=== PATIENT | female | born 1970 | race Caucasian/White ===

== ENCOUNTER 2023-07-03 21:47 | Emergency (ER) | payer BC, SELFPAY ==
--- NOTE | ~2023-07-03 | CT_ITS ---
CT of the Abdomen and Pelvis: Indication: Flank pain Technique: 2.5 mm axial scans were obtained through the abdomen and pelvis following intravenous adm inistration of 100 cc of Omnipaque 350. Dose reduction technique was used on this scan by utilizing a utomated exposure control and iterative reconstruction technique. The dose-length product (DLP) was 1 218.45 mGy-cm. Findings: Scans through the lung bases are unremarkable. The liver, spleen, pancreas, gallbladder, adrenals and kidneys are within normal limits. No evidence of aortic aneurysm. No lymphadenopathy. No bowel obstruction or bowel wall thickening. There is no evidence to suggest acute appendicitis. Images through the pelvis were performed. Urinary bladder unremarkable. No pelvic mass seen. No ascit es. Impression: No significant abnormalities seen. Reviewed, dictated and finalized at location . ONNEL SCHEDULER Impression: No significant abnormalities seen.
[2023-07-03 21:58] VITALS: BP 148/107; PULSE 95; RESP 15; TEMP 36.9; O2SAT 98
[2023-07-03 22:16] LABS: Basophils Percent Auto 0.2 % (0.2-1.2); Eosinophils Absolute Auto 0.1 K/mm3 (0-0.3); Hematocrit 45.6 % (37.0-47.0); Hemoglobin 15.1 g/dL (12.0-15.0); Immature Granulocyte Absolute 0.03 K/mm3 (0.00-0.031); Immature Granulocyte Percent A 0.3 % (0-0.5); Lymphocytes Percent Auto 20.4 % (18.3-44.2); Mean Corpuscular HGB Conc 33.1 g/dl (32-36); Mean Corpuscular Hemoglobin 31.7 pg (26-34); Mean Corpuscular Volume 95.6 fl (80-100); Mean Platelet Volume 9.8 fl (7.4-10.4); Monocytes Absolute Auto 0.5 K/mm3 (0.1-0.6); Monocytes Percent Auto 5.7 % (2.6-8.5); Neutrophils Absolute Auto 6.7 K/mm3 (1.3-6.7); Neutrophils Percent Auto 72.4 % (45.5-73.1); Platelet Count Result 237 k/mm3 (150-375); Red Blood Count 4.77 M/mm3 (4.2-5.4); Red Cell Distribution Width 12.9 % (11.5-14.5); White Blood Count 9.3 K/mm3 (4.5-10.0)
[2023-07-03 22:25] LABS: Alanine Aminotransferase 25 U/L (6-35); Albumin Level 3.9 g/dL (3.5-5.1); Alkaline Phosphatase 103 U/L (38-126); Anion Gap 9 mmol/L (8-16); Aspartate Amino Transferase 29 U/L (14-36); Bilirubin,Total 0.5 mg/dL (0.2-1.3); Blood Urea Nitrogen 9 mg/dL (7-17); Calcium 8.6 mg/dL (8.4-10.2); Carbon Dioxide 25 mmol/L (22-30); Chloride 105 mmol/L (98-107); Estimated Glomerular Filt Rate > 60; Glucose 125 mg/dL (65-110); Lipase 44 U/L (23-300); Potassium 3.9 mmol/L (3.4-5.0); Sodium 139 mmol/L (137-145)
[2023-07-03 22:44] LABS: Add Urine Microscopic? YES; Appearance Urine Cloudy (Clear); Bacteria Urine 3+ /hpf; Bilirubin Urine Negative (Negative); Blood Urine Negative (Negative); Color Urine Yellow (Yellow); Glucose Urine UA Negative (Negative); Ketones Urine Trace mg/dL (Negative); Leukocyte Esterase Ur 1+ LEU/UL (Negative); Need Manual Microscopic Reviewed; Nitrate Urine Negative (Negative); Non Pathogenic Casts 0-2; Protein Urine 1+ mg/dL (Negative); Specific Grav Ur 1.029 (1.001-1.035); Squamous Epithelial Cell Urine Few /hpf (Few)
[2023-07-04] VITALS (20 sets, daily range): BP systolic 88–156; BP diastolic 52–84; PULSE 67–74; RESP 14–16; O2SAT 93–100
--- NOTE | 2023-07-04 00:50 | ED.GENADULT ---
HPI - General Adult General Chief complaint: Nausea/Vomiting/Diarrhea <Zhou Cárdenas PA-C - Last Filed: 07/04/23 03:54> Stated complaint: N/V <Zhou Cárdenas PA-C - Last Filed: 07/04/23 03:54> Time Seen by Provider: 07/04/23 00:09 <RUIZ Sharp Last Filed: 07/04/23 03:54> Source: patient <RUIZ Sharp Last Filed: 07/04/23 03:54> Mode of arrival: ambulatory <RUIZ Sharp Last Filed: 07/04/23 03:54> Limitations: no limitations <RUIZ Sharp Last Filed: 07/04/23 03:54> History of Present Illness HPI narrative: This is a 52-year-old female with PMH of insulin-dependent diabetes who presents to the ED with chief complaint of N/V x1 day. Reports she started to become nauseous last night and has been unable to tolerate p.o. intake all day. Reports 4 episodes of vomiting today. Denies diarrhea. Endorses occasional abdominal discomfort but does not have any pain. Denies fevers, chills, problems with bowel movements, chest pain, shortness of breath, cough. <Zhou Cárdenas PA-C - Last Filed: 07/04/23 03:54> Related Data Home medications: Home Medications Medication Instructions Recorded Confirmed cetirizine 10 mg capsule (Zyrtec) 10 mg PO DAILY PRN 06/24/23 06/24/23 dulaglutide 3 mg/0.5 mL 3 mg subcut WEEKLY 06/24/23 06/24/23 subcutaneous pen injector (Trulicity) duloxetine 60 mg capsule,delayed 60 mg PO DAILY 06/24/23 06/24/23 release (Cymbalta) ergocalciferol (vitamin D2) 1,250 1,250 mcg PO WEEKLY 06/24/23 06/24/23 mcg (50,000 unit) capsule ezetimibe 10 mg tablet (Zetia) 10 mg PO DAILY 06/24/23 06/24/23 fluticasone propionate 50 1 spray intranasal .PRN 06/24/23 06/24/23 mcg/actuation nasal spray,suspension (Allergy Relief (fluticasone)) insulin lispro 100 unit/mL 8 unit subcut TID 06/24/23 06/24/23 subcutaneous pen (Humalog KwikPen (U-100) Insulin) nabumetone 750 mg tablet 750 mg PO BID 06/24/23 06/24/23 pen needle, diabetic 31 gauge x 06/24/23 06/24/23 5/16 (BD Ultra-Fine Short Pen Needle) <Zhou Cárdenas PA-C - Last Filed: 07/04/23 03:54> Allergies/adverse reactions: Allergies Allergy/AdvReac Type Severity Reaction Status Date / Time celecoxib [From Celebrex] Allergy Mild Unknown Verified 06/24/23 14:17 diphenhydramine Allergy Mild Unknown Verified 06/24/23 14:17 [From Benadryl] meloxicam [From Mobic] Allergy Mild Hives Verified 06/24/23 14:17 moxifloxacin [From Avelox] Allergy Mild Unknown Verified 06/24/23 14:17 sulfur dioxide Allergy Mild Unknown Verified 06/24/23 14:17 <Zhou Cárdenas PA-C - Last Filed: 07/04/23 03:54> Review of Systems Review of Systems: All systems as dictated in HPI <Zhou Cárdenas PA-C - Last Filed: 07/04/23 03:54> PMFSH Past Medical History Medical History: Medical History (Updated 07/04/23 @ 03:53 by Zhou Cárdenas PA-C) Diabetes <Zhou Cárdenas PA-C - Last Filed: 07/04/23 03:54> Social History Social History: Social History (Updated 06/24/23 @ 14:31 by Taya Wu MA) Smoking packs per day: 0.5 Smoking cigarettes per day: 10.0 Smoking status: Current every day smoker Tobacco type: cigarettes Alcohol intake: never Substance use: never Living arrangements: with family Occupation/Education: occupation Gender identity (if verbalized by the patient): Female <Zhou Cárdenas PA-C - Last Filed: 07/04/23 03:54> Exam Narrative: GENERAL: Well-appearing, well-nourished, and in no acute distress. Appears dry on exam HEAD: Normocephalic, atraumatic. EYES: PERRLA and EOMI. ENT: Nares clear, no rhinorrhea or epistaxis. Mucous membranes moist. Oropharynx without tonsillar hypertrophy exudate or other lesions. NECK: Supple. No adenopathy or masses. CHEST: No respiratory distress. Clear to auscultation. No wheezes rales or rhonchi HEART: Regular rate and rhythm. No murmur heard. Normal peripheral pulses. ABD
[2023-07-04] MEDS: ONDANSETRON INJ 4 MG/2 ML VIAL IV PUSH (01:12)
[2023-07-04] MEDS: SODIUM CHLORIDE 0.9% IV 1,000 ML 999 ML IV CONT (01:13)
[2023-07-04 01:27] LABS: Pregnancy On Board Control Positive; Urine Pregnancy Test Negative
[2023-07-04 01:38] LABS: Influenza A QL RT-PCR Negative (Negative); Influenza B QL RT-PCR Negative (Negative); RSV RNA, RT-PCR Negative (Negative); SARS-CoV-2 RNA PCR Negative (Negative)
[2023-07-04] MEDS: ONDANSETRON HCL ODT 4 MG TABLET PO (05:06)
== END 2023-07-04 05:12 | disposition home or self-care (01) ==
PROVIDERS: Emergency Medicine; Emergency Provider Physician Assistant; PCP Family Medicine
DX: N39.0 Urinary tract infection, site not specified (principal); Z20.822 Contact with and (suspected) exposure to COVID-19; E11.9 Type 2 diabetes mellitus without complications; Z79.85 Long-term (current) use of injectable non-insulin antidiabetic drugs; Z79.4 Long term (current) use of insulin; F17.210 Nicotine dependence, cigarettes, uncomplicated
CPT/HCPCS: 36415; 74177; 80053; 81001; 81025; 83690; 85025; 87086; 87637; 96365; 96375; 99284; A9270; J0696; J2405; J7030; Q9967

== ENCOUNTER 2023-07-21 09:47 | Emergency (ER) | payer BC, SELFPAY ==
--- NOTE | ~2023-07-21 | CT_ITS ---
EXAMINATION: CT abdomen pelvis w con DATE: 07/21/2023 13:32 INDICATION: Abdominal pain and fever TECHNIQUE: Computed tomography (CT) of the abdomen and pelvis was performed with 100 mL Omnipaque-350 intravenous contrast. Automated exposure control and iterative reconstruction technique were employe d. The dose-length product was 1230.41 mGy-cm. COMPARISON: 07/04/2023 FINDINGS: Minimal dependent atelectasis in the bilateral lower lobes. Heart size is normal. Atherosclerotic cor onary artery calcific location. No pericardial or pleural effusion. Liver, gallbladder, spleen, pancr eas and bilateral adrenal glands are normal. Bilateral renal cysts, the larger on the right measuring 1.1 cm. There is mild colonic diverticulosis with a sigmoid predominance. There is no adjacent infl ammatory change to suggest diverticulitis. Small bowel and appendix are normal. 4.0 cm left adnexal c yst. 1.4 cm peripherally enhancing right ovarian corpus luteum cyst. Bladder and anteverted uterus ar e normal. No free intraperitoneal gas or fluid. No pathologically enlarged abdominal or pelvic lympha denopathy. Mild to moderate thoracic and lumbar spondylosis. IMPRESSION: 1. 4.0 cm left ovarian cyst and 1.4 cm corpus luteum cyst at the right ovary. 2. No other acute intra-abdominal/pelvic process with normal gallbladder and appendix. Reviewed, dictated and finalized at location A. ANALYST IMPRESSION: 1. 4.0 cm left ovarian cyst and 1.4 cm corpus luteum cyst at the right ovary. 2. No other acute intra-abdominal/pelvic process with normal gallbladder and ap pendix.
--- NOTE | ~2023-07-21 | XR_ITS ---
Clinical Indication: Cough PA and lateral views of the chest: Comparison: None Findings: The lungs are clear, without evidence of focal consolidation or pleural effusion. Cardiome diastinal silhouette is within normal limits. Bones and soft tissues are unremarkable. Impression: Normal chest. Reviewed, dictated and finalized at location . LAYER HELPER Impression: Normal chest.
[2023-07-21 10:13] VITALS: BP 145/93; PULSE 90; RESP 18; TEMP 36.7; O2SAT 100
[2023-07-21 10:37] LABS: Basophils Percent Auto 0.2 % (0.2-1.2); Eosinophils Absolute Auto 0.2 K/mm3 (0-0.3); Eosinophils Percent Auto 1.4 % (0-4.4); Hematocrit 43.1 % (37.0-47.0); Hemoglobin 14.4 g/dL (12.0-15.0); Immature Granulocyte Absolute 0.05 K/mm3 (0.00-0.031); Immature Granulocyte Percent A 0.4 % (0-0.5); Lymphocytes Absolute Auto 2.27 K/mm3 (0.9-3.2); Lymphocytes Percent Auto 18.4 % (18.3-44.2); Mean Corpuscular HGB Conc 33.4 g/dl (32-36); Mean Corpuscular Hemoglobin 32.8 pg (26-34); Mean Corpuscular Volume 98.2 fl (80-100); Mean Platelet Volume 10.1 fl (7.4-10.4); Monocytes Absolute Auto 0.5 K/mm3 (0.1-0.6); Monocytes Percent Auto 4.1 % (2.6-8.5); Neutrophils Absolute Auto 9.3 K/mm3 (1.3-6.7); Neutrophils Percent Auto 75.5 % (45.5-73.1); Platelet Count Result 228 k/mm3 (150-375); Red Blood Count 4.39 M/mm3 (4.2-5.4); Red Cell Distribution Width 13.4 % (11.5-14.5); White Blood Count 12.3 K/mm3 (4.5-10.0)
[2023-07-21 10:41] LABS: Alanine Aminotransferase 30 U/L (6-35); Albumin Level 4.2 g/dL (3.5-5.1); Alkaline Phosphatase 101 U/L (38-126); Anion Gap 6 mmol/L (8-16); Aspartate Amino Transferase 33 U/L (14-36); Bilirubin,Total 0.7 mg/dL (0.2-1.3); Blood Urea Nitrogen 15 mg/dL (7-17); Calcium 9.2 mg/dL (8.4-10.2); Carbon Dioxide 23 mmol/L (22-30); Chloride 104 mmol/L (98-107); Estimated CRCL calculation 106 ml/min; Estimated Glomerular Filt Rate > 60; Glucose 187 mg/dL (65-110); Potassium 4.1 mmol/L (3.4-5.0); Sodium 133 mmol/L (137-145)
[2023-07-21 10:45] LABS: Appearance Urine Clear (Clear); Bacteria Urine None Seen /hpf; Bilirubin Urine Negative (Negative); Blood Urine Negative (Negative); Color Urine Yellow (Yellow); Glucose Urine UA Negative (Negative); Ketones Urine Negative (Negative); Leukocyte Esterase Ur 1+ LEU/UL (Negative); Nitrate Urine Negative (Negative); Non Pathogenic Casts 0-2; Protein Urine Negative (Negative); Specific Grav Ur 1.023 (1.001-1.035); Squamous Epithelial Cell Urine None seen /hpf (Few); Urobilinogen Urine 0.2 mg/dL (<2.0)
[2023-07-21 10:55] LABS: Add Urine Microscopic? YES
[2023-07-21 11:08] LABS: Influenza A QL RT-PCR Negative (Negative); Influenza B QL RT-PCR Negative (Negative); RSV RNA, RT-PCR Negative (Negative); SARS-CoV-2 RNA PCR Negative (Negative)
--- NOTE | 2023-07-21 12:07 | ED.GENADULT ---
HPI - General Adult General Chief complaint: Unspecified Stated complaint: weak, sob Time Seen by Provider: 07/21/23 11:56 History of Present Illness HPI narrative: Patient is a 52-year-old female with history of DM, here with flu like symptoms. She notes she has had intermittent symptoms over the last few weeks, a week on, then a week off. This episode began last night. She notes myalgias, chills, clamminess, nausea, abdominal cramping and diarrhea. She abdominal cramping seems occur before episodes of diarrhea. No blood in her stools. No urinary symptoms. She has had exposures to several sick contacts at work and she believes that her her son has been sick with flu like symptoms as well. No chest pain. No cardiac history. Related Data Home Medications Medication Instructions Recorded Confirmed cetirizine 10 mg capsule (Zyrtec) 10 mg PO DAILY PRN 06/24/23 06/24/23 dulaglutide 3 mg/0.5 mL 3 mg subcut WEEKLY 06/24/23 06/24/23 subcutaneous pen injector (Trulicity) duloxetine 60 mg capsule,delayed 60 mg PO DAILY 06/24/23 06/24/23 release (Cymbalta) ergocalciferol (vitamin D2) 1,250 1,250 mcg PO WEEKLY 06/24/23 06/24/23 mcg (50,000 unit) capsule ezetimibe 10 mg tablet (Zetia) 10 mg PO DAILY 06/24/23 06/24/23 fluticasone propionate 50 1 spray intranasal .PRN 06/24/23 06/24/23 mcg/actuation nasal spray,suspension (Allergy Relief (fluticasone)) insulin lispro 100 unit/mL 8 unit subcut TID 06/24/23 06/24/23 subcutaneous pen (Humalog KwikPen (U-100) Insulin) nabumetone 750 mg tablet 750 mg PO BID 06/24/23 06/24/23 pen needle, diabetic 31 gauge x 06/24/23 06/24/23 5/16 (BD Ultra-Fine Short Pen Needle) Allergies Allergy/AdvReac Type Severity Reaction Status Date / Time celecoxib [From Celebrex] Allergy Mild Unknown Verified 07/17/23 14:15 diphenhydramine Allergy Mild Unknown Verified 07/17/23 14:15 [From Benadryl] meloxicam [From Mobic] Allergy Mild Hives Verified 07/17/23 14:15 moxifloxacin [From Avelox] Allergy Mild Unknown Verified 07/17/23 14:15 sulfur dioxide Allergy Mild Unknown Verified 07/17/23 14:15 Penicillins Allergy Hives Verified 07/21/23 10:17 Review of Systems Review of Systems: All systems reviewed & are unremarkable except as noted in HPI and below PMFSH Past Medical History Medical History (Updated 07/21/23 @ 15:07 by Isabella Snyder MD) Asthma Depression Diabetes Diabetic neuropathy Fibromyalgia GERD (gastroesophageal reflux disease) HLD (hyperlipidemia) HTN (hypertension) Migraines CORTEZ (obstructive sleep apnea) Osteoarthritis Vitamin B12 deficiency Surgical History Surgical History (Updated 07/18/23 @ 09:04 by Lalit Hammonds MD) History of endometrial ablation History of tubal ligation Hx of foot surgery Family History Family History (Updated 07/18/23 @ 09:05 by Lalit Hammonds MD) Father Asthma Carcinoma of colon Hypertension Mother Hypertension Cerebrovascular accident Social History Social History Smoking packs per day: 0.5 Smoking cigarettes per day: 10.0 Smoking status: Current every day smoker Tobacco type: cigarettes Alcohol intake: never Substance use: never Living arrangements: with family Occupation/Education: occupation Gender identity (if verbalized by the patient): Female Exam Narrative: GENERAL: Well-appearing, well-nourished, and in no acute distress. HEAD: Normocephalic, atraumatic. EYES: PERRLA and EOMI. ENT: Nares clear. Mucous membranes moist. NECK: Supple. CHEST: Clear to auscultation. No respiratory distress. HEART: Regular rate and rhythm. Normal peripheral pulses. ABDOMEN: Soft, diffusely tender, mild, no rebound or guarding, nondistended. EXTREMITIES: Normal range of motion. No edema. SKIN: Warm, dry, no rash. NEURO: No focal deficits. Alert and oriented x3. PSYCH: Normal mood and affect. Course Course Emergency Course:
--- NOTE | 2023-07-21 13:00 | PC.NURSE ---
Pt taken to xray
[2023-07-21] MEDS: ACETAMINOPHEN 325 MG TABLET 650 MG PO (13:05)
--- NOTE | 2023-07-21 15:07 | ED.GENADULT ---
HPI - General Adult General Chief complaint: Unspecified Stated complaint: weak, sob Time Seen by Provider: 07/21/23 11:56 Related Data Home Medications Medication Instructions Recorded Confirmed cetirizine 10 mg capsule (Zyrtec) 10 mg PO DAILY PRN 06/24/23 06/24/23 dulaglutide 3 mg/0.5 mL 3 mg subcut WEEKLY 06/24/23 06/24/23 subcutaneous pen injector (Trulicity) duloxetine 60 mg capsule,delayed 60 mg PO DAILY 06/24/23 06/24/23 release (Cymbalta) ergocalciferol (vitamin D2) 1,250 1,250 mcg PO WEEKLY 06/24/23 06/24/23 mcg (50,000 unit) capsule ezetimibe 10 mg tablet (Zetia) 10 mg PO DAILY 06/24/23 06/24/23 fluticasone propionate 50 1 spray intranasal .PRN 06/24/23 06/24/23 mcg/actuation nasal spray,suspension (Allergy Relief (fluticasone)) insulin lispro 100 unit/mL 8 unit subcut TID 06/24/23 06/24/23 subcutaneous pen (Humalog KwikPen (U-100) Insulin) nabumetone 750 mg tablet 750 mg PO BID 06/24/23 06/24/23 pen needle, diabetic 31 gauge x 06/24/23 06/24/23 5/16 (BD Ultra-Fine Short Pen Needle) Allergies Allergy/AdvReac Type Severity Reaction Status Date / Time celecoxib [From Celebrex] Allergy Mild Unknown Verified 07/17/23 14:15 diphenhydramine Allergy Mild Unknown Verified 07/17/23 14:15 [From Benadryl] meloxicam [From Mobic] Allergy Mild Hives Verified 07/17/23 14:15 moxifloxacin [From Avelox] Allergy Mild Unknown Verified 07/17/23 14:15 sulfur dioxide Allergy Mild Unknown Verified 07/17/23 14:15 Penicillins Allergy Hives Verified 07/21/23 10:17 PMFSH Past Medical History Medical History (Updated 07/21/23 @ 15:07 by Isabella Snyder MD) Asthma Depression Diabetes Diabetic neuropathy Fibromyalgia GERD (gastroesophageal reflux disease) HLD (hyperlipidemia) HTN (hypertension) Migraines CORTEZ (obstructive sleep apnea) Osteoarthritis Vitamin B12 deficiency Surgical History Surgical History (Updated 07/18/23 @ 09:04 by Lalit Hammonds MD) History of endometrial ablation History of tubal ligation Hx of foot surgery Family History Family History (Updated 07/18/23 @ 09:05 by Lalit Hammonds MD) Father Asthma Carcinoma of colon Hypertension Mother Hypertension Cerebrovascular accident Social History Social History Smoking packs per day: 0.5 Smoking cigarettes per day: 10.0 Smoking status: Current every day smoker Tobacco type: cigarettes Alcohol intake: never Substance use: never Living arrangements: with family Occupation/Education: occupation Gender identity (if verbalized by the patient): Female Course Vital Signs Vital signs: Vital Signs Temperature 98.1 F 07/21/23 10:13 Pulse Rate 90 07/21/23 10:13 Respiratory Rate 18 07/21/23 10:13 Blood Pressure 145/93 H 07/21/23 10:13 Pulse Oximetry 100 07/21/23 10:13 Oxygen Delivery Room Air 07/21/23 10:13 Temperature 98.1 F 07/21/23 10:13 Pulse Rate 90 07/21/23 10:13 Respiratory Rate 18 07/21/23 10:13 Blood Pressure 145/93 H 07/21/23 10:13 Pulse Oximetry 100 07/21/23 10:13 Oxygen Delivery Room Air 07/21/23 10:13 Medical Decision Making Vital Signs Vital Signs: Vital Signs Temperature 98.1 F 07/21/23 10:13 Pulse Rate 90 07/21/23 10:13 Respiratory Rate 18 07/21/23 10:13 Blood Pressure 145/93 H 07/21/23 10:13 Pulse Oximetry 100 07/21/23 10:13 Oxygen Delivery Room Air 07/21/23 10:13 Temperature 98.1 F 07/21/23 10:13 Pulse Rate 90 07/21/23 10:13 Respiratory Rate 18 07/21/23 10:13 Blood Pressure 145/93 H 07/21/23 10:13 Pulse Oximetry 100 07/21/23 10:13 Oxygen Delivery Room Air 07/21/23 10:13 Lab Data 07/21/23 10:23 07/21/23 10:23 Labs: Lab Results 07/21/23 07/21/23 Range/Units 10:23 10:34 WBC 12.3 H (4.5-10.0) K/mm3 RBC 4.39 (4.2-5.4) M/mm3 Hgb 14.4 (12.0-15.0) g/dL Hct 43.1 (37.
[2023-07-21 15:11] VITALS: BP 124/74; PULSE 84; RESP 19; O2SAT 96
== END 2023-07-21 15:24 | disposition home or self-care (01) ==
PROVIDERS: Emergency Medicine; Emergency Provider Student in an Organized Health Care Education/Training Program; PCP Family Medicine
DX: B34.9 Viral infection, unspecified (principal); Z20.822 Contact with and (suspected) exposure to COVID-19; J45.909 Unspecified asthma, uncomplicated; I10 Essential (primary) hypertension; E11.40 Type 2 diabetes mellitus with diabetic neuropathy, unspecified; E53.8 Deficiency of other specified B group vitamins; E78.5 Hyperlipidemia, unspecified; K21.9 Gastro-esophageal reflux disease without esophagitis; G47.33 Obstructive sleep apnea (adult) (pediatric); M79.7 Fibromyalgia; M19.90 Unspecified osteoarthritis, unspecified site; F17.210 Nicotine dependence, cigarettes, uncomplicated; Z79.85 Long-term (current) use of injectable non-insulin antidiabetic drugs; Z79.4 Long term (current) use of insulin
CPT/HCPCS: 36415; 71046; 74177; 80053; 81001; 85025; 87086; 87637; 99284; A9270; Q9967

== ENCOUNTER 2023-11-17 01:22 | Day surgery (SDC) | payer BC, SELFPAY ==
[2023-10-31 14:49] VITALS: BMI 37.0
--- NOTE | 2023-11-17 12:26 | WPDANESEPPF ---
Anes - Initial Pre Proc Eval Procedure: Operation Date: 11/17/23 14:30 Proposed Procedures p Esophagogastroduodenoscopy - José Miguel Fitch MD Date/Time: 11/17/23 12:26 Surgeon: José Miguel Fitch MD Pre Op Diagnosis: abnormal weight loss, diarrhea unspecified, nausea Patient Data Age: 53 Gender: F Height: 1.6 m Weight: 95 kg Allergies Allergy/AdvReac Type Severity Reaction Status Date / Time celecoxib [From Celebrex] Allergy Mild Unknown Verified 11/17/23 13:36 diphenhydramine Allergy Mild Unknown Verified 11/17/23 13:36 [From Benadryl] meloxicam [From Mobic] Allergy Mild Hives Verified 11/17/23 13:36 moxifloxacin [From Avelox] Allergy Mild Unknown Verified 11/17/23 13:36 sulfur dioxide Allergy Mild Unknown Verified 11/17/23 13:36 Penicillins Allergy Hives Verified 11/17/23 13:36 Home Medications Medication Instructions Recorded Confirmed Type cetirizine 10 mg capsule (Zyrtec) 10 mg PO DAILY PRN Allergy Symptoms 06/24/23 10/31/23 History duloxetine 60 mg capsule,delayed 60 mg PO DAILY 06/24/23 10/31/23 History release (Cymbalta) ergocalciferol (vitamin D2) 1,250 1,250 mcg PO WEEKLY 06/24/23 10/31/23 History mcg (50,000 unit) capsule ezetimibe 10 mg tablet (Zetia) 10 mg PO DAILY 06/24/23 10/31/23 History fluticasone propionate 50 1 spray intranasal .PRN 06/24/23 10/31/23 History mcg/actuation nasal spray,suspension (Allergy Relief (fluticasone)) gabapentin 400 mg capsule 400 mg PO TID #270 caps 06/24/23 10/31/23 Rx (Neurontin) insulin lispro 100 unit/mL 8 unit subcut TID 06/24/23 10/31/23 History subcutaneous pen (Humalog KwikPen (U-100) Insulin) lisinopril 20 mg tablet 20 mg PO DAILY #90 tabs 06/24/23 10/31/23 Rx montelukast 10 mg tablet 10 mg PO DAILY #90 tabs 06/24/23 10/31/23 Rx (Singulair) nabumetone 750 mg tablet 750 mg PO BID 06/24/23 10/31/23 History pen needle, diabetic 31 gauge x 06/24/23 10/28/23 History 5/16 (BD Ultra-Fine Short Pen Needle) rizatriptan 10 mg tablet See Rx Instructions .Route 06/24/23 10/31/23 Rx .COMPLEX #10 tabs dulaglutide 3 mg/0.5 mL 1.5 mg subcut WEEKLY 08/21/23 10/31/23 History subcutaneous pen injector (Trulicity) B6 35 mg-B9 3 mg-B12 2 mg-D3 62.5 cap PO 10/09/23 10/28/23 History mcg-ALA 300 mg capsule,delay release (EB-N5 DR) dicyclomine 10 mg capsule 10 mg PO TID PRN abdominal pain 10/09/23 10/28/23 Rx #90 caps terbinafine HCl 250 mg tablet 250 mg PO DAILY 10/09/23 10/31/23 History omeprazole 40 mg capsule,delayed 40 mg PO DAILY #30 caps 10/19/23 10/31/23 Rx release lipase 60,000-protease 1 cap PO .ac #120 caps 10/23/23 10/31/23 Rx 189,600-amylase 252,600 unit capsule, delay rel (Zenpep) cyclobenzaprine 10 mg tablet 10 mg PO TID 10/31/23 10/31/23 History insulin glargine 100 unit/mL (3 See Rx Instructions .Route 11/10/23 Rx mL) subcutaneous pen (Basaglar .COMPLEX #15 mL KwikPen U-100 Insulin) ondansetron 4 mg disintegrating 4 mg PO Q8H PRN nausea and 11/10/23 Rx tablet vomiting #10 tabs Patient hx anesthesia problems: none Family hx anesthesia problems: none Results Review: All pre-operative results and documents have been reviewed as part of the pre-operative evaluation. [facility] Past Medical History Medical History Asthma Depression Diabetes Diabetic neuropathy Fibromyalgia GERD (gastroesophageal reflux disease) HLD (hyperlipidemia) HTN (hypertension) Migraines CORTEZ (obstructive sleep apnea) Osteoarthritis Vitamin B12 deficiency Surgical History Surgical History History of endometrial ablation History of tubal ligation Hx of foot surgery Family History Family History Father Asthma Carcinoma of colon Hypertension Mother Hypertension Cerebrovascular accident
[2023-11-17 13:36] VITALS: BP 130/82; PULSE 90; RESP 20; TEMP 36.5; O2SAT 97
[2023-11-17 13:54] LABS: Glucose Point of Care 74 mg/dl (65-105)
[2023-11-17] MEDS: LACTATED RINGERS 1,000 ML 150 ML IV CONT (13:55)
--- NOTE | 2023-11-17 14:47 | PM.HPGS ---
History of Present Illness History of Present Illness Consent: Risks, benefits, and alternatives have been discussed and questions answered. Patient agrees to proceed with procedure. Chief complaint: abnormal weight loss, diarrhea unspecified, nausea Narrative: Mago Burgos is a 53 year old female with intermittent nausea for 8 months, gerd on omeprazole and better, had colonoscopy about 2 years ago. Recent pancreatic elastase in stool was low and started on zenpep, calprotectin normal. Denies use of marijuana. Review of Systems Review of Systems: All systems reviewed & are unremarkable except as noted in HPI and below PMFSH Past Medical History Medical History Asthma Depression Diabetes Diabetic neuropathy Fibromyalgia GERD (gastroesophageal reflux disease) HLD (hyperlipidemia) HTN (hypertension) Migraines CORTEZ (obstructive sleep apnea) Osteoarthritis Vitamin B12 deficiency Surgical History Surgical History History of endometrial ablation History of tubal ligation Hx of foot surgery Family History Family History Father Asthma Carcinoma of colon Hypertension Mother Hypertension Cerebrovascular accident Social History Social History Smoking packs per day: 1 Smoking cigarettes per day: 20.0 Years smoked: 25 Smoking pack-years: 25.00 Smoking status: Current every day smoker Tobacco type: cigarettes Alcohol intake: never Substance use: never Living arrangements: with family Occupation/Education: occupation Gender identity (if verbalized by the patient): Female Spiritual care concerns: No Meds Home Medications and Allergies Home Medications Medication Instructions Recorded Confirmed Type cetirizine 10 mg capsule (Zyrtec) 10 mg PO DAILY PRN Allergy Symptoms 06/24/23 10/31/23 History duloxetine 60 mg capsule,delayed 60 mg PO DAILY 06/24/23 10/31/23 History release (Cymbalta) ergocalciferol (vitamin D2) 1,250 1,250 mcg PO WEEKLY 06/24/23 10/31/23 History mcg (50,000 unit) capsule ezetimibe 10 mg tablet (Zetia) 10 mg PO DAILY 06/24/23 10/31/23 History fluticasone propionate 50 1 spray intranasal .PRN 06/24/23 10/31/23 History mcg/actuation nasal spray,suspension (Allergy Relief (fluticasone)) gabapentin 400 mg capsule 400 mg PO TID #270 caps 06/24/23 10/31/23 Rx (Neurontin) insulin lispro 100 unit/mL 8 unit subcut TID 06/24/23 10/31/23 History subcutaneous pen (Humalog KwikPen (U-100) Insulin) lisinopril 20 mg tablet 20 mg PO DAILY #90 tabs 06/24/23 10/31/23 Rx montelukast 10 mg tablet 10 mg PO DAILY #90 tabs 06/24/23 10/31/23 Rx (Singulair) nabumetone 750 mg tablet 750 mg PO BID 06/24/23 10/31/23 History pen needle, diabetic 31 gauge x 06/24/23 10/28/23 History 5/16 (BD Ultra-Fine Short Pen Needle) rizatriptan 10 mg tablet See Rx Instructions .Route 06/24/23 10/31/23 Rx .COMPLEX #10 tabs dulaglutide 3 mg/0.5 mL 1.5 mg subcut WEEKLY 08/21/23 10/31/23 History subcutaneous pen injector (Trulicity) B6 35 mg-B9 3 mg-B12 2 mg-D3 62.5 cap PO 10/09/23 10/28/23 History mcg-ALA 300 mg capsule,delay release (EB-N5 DR) dicyclomine 10 mg capsule 10 mg PO TID PRN abdominal pain 10/09/23 10/28/23 Rx #90 caps terbinafine HCl 250 mg tablet 250 mg PO DAILY 10/09/23 10/31/23 History omeprazole 40 mg capsule,delayed 40 mg PO DAILY #30 caps 10/19/23 10/31/23 Rx release lipase 60,000-protease 1 cap PO .ac #120 caps 10/23/23 10/31/23 Rx 189,600-amylase 252,600 unit capsule, delay rel (Zenpep) cyclobenzaprine 10 mg tablet 10 mg PO TID 10/31/23 10/31/23 History insulin glargine 100 unit/mL (3 See Rx Instructions .Route 11/10/23 Rx mL) subcutaneous pen (Basaglar .COMPLEX #15 mL KwikPen U-100
[2023-11-17 15:00] VITALS: BP 100/47; PULSE 88; RESP 29; O2SAT 96
[2023-11-17 15:10] VITALS: BP 108/54; PULSE 71; RESP 22; O2SAT 97
[2023-11-17 15:16] LABS: Glucose Point of Care 61 mg/dl (65-105)
[2023-11-17 15:20] VITALS: BP 109/62; PULSE 76; RESP 18; O2SAT 100
[2023-11-17 15:40] LABS: Glucose Point of Care 65 mg/dl (65-105)
[2023-11-17 15:40] LABS: Glucose Point of Care 75 mg/dl (65-105)
--- NOTE | 2023-11-17 15:41 | SUR.PHASEII ---
Pt arrived into post-op BS 61 pt requested white soda, BS retake after 15 min 64, Pt requested another white soda and andrew crackers, BS retake after 15 min 75 Pt ok with being discharged.
== END 2023-11-17 15:42 | disposition home or self-care (01) ==
PROVIDERS: PCP Family Medicine; Referring Provider Nurse Practitioner Family; Visit Provider Internal Medicine Gastroenterology
PROC: 0DJ08ZZ Inspection of Upper Intestinal Tract, Via Natural or Artificial Opening Endoscopic (ICD-10-PCS; CPT 43235; principal; 2023-11-17 14:30)
DX: K29.70 Gastritis, unspecified, without bleeding (principal); K21.9 Gastro-esophageal reflux disease without esophagitis; E11.40 Type 2 diabetes mellitus with diabetic neuropathy, unspecified; I10 Essential (primary) hypertension; E78.5 Hyperlipidemia, unspecified; J45.909 Unspecified asthma, uncomplicated; M79.7 Fibromyalgia; E53.8 Deficiency of other specified B group vitamins; F32.A Depression, unspecified; G47.33 Obstructive sleep apnea (adult) (pediatric); F17.210 Nicotine dependence, cigarettes, uncomplicated; E66.9 Obesity, unspecified; Z68.35 Body mass index [BMI] 35.0-35.9, adult; Z79.85 Long-term (current) use of injectable non-insulin antidiabetic drugs; Z79.4 Long term (current) use of insulin
CPT/HCPCS: 43239; 82948; 88305; J2704; J7120

== ENCOUNTER 2023-12-02 07:33 | Outpatient (CLI) | payer BC, SELFPAY ==
--- NOTE | ~2023-12-02 | NM_ITS ---
EXAM: NM gastric emptying study DATE: 12/02/2023 13:10 INDICATION: Bilious vomiting TECHNIQUE: A gastric emptying study was performed using the methodology of Radha DIEZ, et al. J Nucl Med 2007; 48:568-572. The patient was given a meal consisting of 2 scrambled eggs labeled with 1 mCi Tc-99m sulfur colloid, 2 slices of toast, two packages of jam, and approximately 120 mL of water. Si multaneous anterior and posterior 1-min images of the abdomen were obtained with the patient supine a t multiple time points over a total period of 4 hours. The geometric mean of anterior and posterior v iews was determined, and the percentage retention was calculated for each time point. COMPARISON: None. FINDINGS: Gastric retention of the radiotracer-labeled meal was 73%, 47%, and 29% at the 1-hour, 2-hour, and 4- hour time points, respectively. With this technique, apparent rapid gastric emptying is suggested by <30% gastric retention at 1 hour. Delayed gastric emptying is defined by gastric retention of >90% at 1 hour, >60% retention at 2 hours, or >10% retention at 4 hours. IMPRESSION: 1. Delayed gastric emptying. Reviewed, dictated and finalized at location B.
== END 2023-12-02 07:34 | disposition home or self-care (01) ==
LOC: ANHIMG 07:34
PROVIDERS: PCP Family Medicine; Visit Provider Internal Medicine Gastroenterology
DX: E11.40 Type 2 diabetes mellitus with diabetic neuropathy, unspecified (principal); R11.14 Bilious vomiting; K30 Functional dyspepsia
CPT/HCPCS: 78264; A9541

== ENCOUNTER 2024-06-29 14:47 | Emergency (ER) | payer BC, SELFPAY ==
--- NOTE | ~2024-06-29 | CT_ITS ---
EXAMINATION: CT lumbar spine wo con DATE: 06/29/2024 16:42 INDICATION: Fall. TECHNIQUE: Computed tomography (CT) of the lumbar spine was performed without intravenous contrast. A utomated exposure control and iterative reconstruction technique were employed. The dose-length produ ct was 1258.10 mGy-cm. COMPARISON: None FINDINGS: There is 5 degrees levocurvature of lumbar spine. Vertebral body heights are normal. There is moderately decreased disc height at L1-L2 and mildly decreased disc height at L2-L3. The following disc levels are specifically discussed: L1-L2: The disc is bulging. There is mild bilateral facet joint osteoarthritis. There is mild bilater al neural foraminal stenosis. There is mild central canal stenosis. L2-L3: The disc is bulging. There is mild bilateral facet joint osteoarthritis. There is mild bilater al neural foraminal stenosis. There is mild central canal stenosis. L3-L4: The disc is bulging with superimposed central extrusion. There is mild bilateral facet joint o steoarthritis. There is mild bilateral neural foraminal stenosis. There is mild central canal stenosi s. L4-L5: The disc is bulging. There is severe bilateral facet joint osteoarthritis. There is mild bilat eral neural foraminal stenosis. There is mild central canal stenosis. L5-S1: The disc is bulging. There is severe bilateral facet joint osteoarthritis. There is mild bilat eral neural foraminal stenosis. There is mild central canal stenosis. IMPRESSION: 1. Moderate lumbar spondylosis. Reviewed, dictated and finalized at location A. STANT CONSTRUCTION SUPERINTENDENT
--- NOTE | ~2024-06-29 | CT_ITS ---
EXAMINATION: CT cervical spine wo con DATE: 06/29/2024 16:42 INDICATION: Fall. TECHNIQUE: Computed tomography (CT) of the cervical spine was performed without intravenous contrast. Automated exposure control and iterative reconstruction technique were employed. The dose-length pro duct was 1258.10 mGy-cm. COMPARISON: None FINDINGS: There is 5 degrees dextrocurvature of cervical spine. Vertebral body heights are normal. Th ere is mildly decreased disc height at C4-C5, moderately decreased disc height at C5-C6, and severely decreased disc height at C6-C7. The following disc levels are specifically discussed: C2-C3: There is no uncovertebral joint osteoarthritis. There is moderate bilateral facet joint osteoa rthritis. There is no neural foraminal stenosis. There is no central canal stenosis. C3-C4: There is no uncovertebral joint osteoarthritis. There is moderate right and severe left facet joint osteoarthritis. There is mild left neural foraminal stenosis. There is mild central canal steno sis. C4-C5: There is mild right and moderate left uncovertebral joint osteoarthritis. There is severe bila teral facet joint osteoarthritis. There is mild bilateral neural foraminal stenosis. There is mild ce ntral canal stenosis. C5-C6: There is severe bilateral uncovertebral joint osteoarthritis. There is moderate bilateral face t joint osteoarthritis. There is mild bilateral neural foraminal stenosis. There is mild central samm l stenosis. C6-C7: There is severe bilateral uncovertebral joint osteoarthritis. There is moderate bilateral face t joint osteoarthritis. There is mild right and moderate left neural foraminal stenosis. There is mil d central canal stenosis. C7-T1: There is no uncovertebral joint osteoarthritis. There is severe bilateral facet joint osteoart hritis. There is mild bilateral neural foraminal stenosis. There is no central canal stenosis. IMPRESSION: 1. No fracture 2. Severe cervical spondylosis. Reviewed, dictated and finalized at location A. SALES REPRESENTATIVE
--- NOTE | ~2024-06-29 | XR_ITS ---
EXAMINATION: XR forearm RT 2V DATE: 06/29/2024 16:49 INDICATION: Right forearm injury. Fall. TECHNIQUE: 2 views of right forearm were obtained. COMPARISON: None. FINDINGS: Alignment is normal. No fracture. There is mild osteoarthritis of triscaphe joint and first carpometacarpal joint. There are enthesophytes at medial and lateral humeral epicondyles. No elbow j oint effusion. IMPRESSION: 1. No fracture. Reviewed, dictated and finalized at location A. ICAL RESOURCE COORDINATOR IMPRESSION: 1. No fracture.
--- OUTSIDE RECORDS SUMMARY | 2024-06-29 15:23 | XMS_ITS | Clinical Summary ---
Author Organization [facility] Address [address] [place] [id number] Care Team Providers Care Communications Advisor Name Role Phone Unknown, Notinfile Primary Care Provider Unavail able Allergies Active Allergy Reactions Criticality Noted Date Comments Moxifloxacin Urticaria Medium 06/12/2024 Diphenhydramine Urticaria Medium 06/12/2024 Celecoxib Urticaria Medium 06/12/2024 Meloxicam Urticaria Medium 06/12/2024 Penicillins Urticaria Medium 06/12/2024 Sulfa Urticaria Medium 06/12/[address] (CYMBALTA) 60 mg capsule 05/23/2024 Active ezetimibe (ZETIA) 10 mg tablet 06/05/2024 Active gabapentin (NEURONTIN) 400 mg capsule 06/05/2024 Active TOUJEO MAX 300 unit/mL (3 mL) pen for injection 05/17/2024 Activ e Zenpep 60,000-189,600- 252,600 unit capsule,delayed release(DR/EC) 05/20/2024 Acti ve lisinopriL (PRINIVIL,ZESTRIL) 20 mg tablet 06/05/2024 Active metoclopramide (REGLAN) 10 mg tablet 06/05/2024 Active nabumetone (RELAFEN) 750 mg tablet 05/18/2024 Active omeprazole (PriLOSEC) 40 mg capsule 06/05/2024 Active rizatriptan (MAXALT) 10 mg tablet 05/21/2024 Active Active Problems No known active problems Encounters Date Type Department Care Team Description 06/12/2024 6:49 PM [employer] - 06/12/2024 11:59 PM [employer] Hospital Encounter [address] [address] Acute nasopharyngitis Discharge Disposition: Discharge to home or self care 06/12/2024 6:15 PM [employer] Office Visit [facility] Care at [address] [phone] Miko Cervantes NP Acute nasopharyngitis (Primary Dx) from Last 3 Months Social History Tobacco Use Types Packs/Day Years Used Date Smoking Tobacco: Never Assessed Comments Unknown Sex and Gender Information Value Date Recorded Sex Assigned at Not on file Legal Sex Female 9:20 AM [employer] Gender Identity Not on file Sexual Orientation Not on file Last Filed Vital Signs Vital Sign Reading Time Taken Comments Blood Pressure 148/86 06/12/2024 6:18 PM [employer] Pulse 89 06/12/2024 6:18 PM [employer] Temperature 37 ??C (98.6 ??F) 06/12/2024 6:18 PM [employer] Respiratory Rate 20 06/12/2024 6:18 PM [employer] Oxygen Saturation 98% 06/12/2024 6:18 PM [employer] Inhaled Oxygen Concentration - - Weight 93.4 kg (206 lb) 06/12/2024 6:18 PM [employer] Height - - Body Mass Index - - Plan of Treatment Health Maintenance Due Date Last Done Comments Breast Cancer Screening-Mammogram 1971 Cervical Cancer Screening 1971 Colon Cancer Screening-Colonoscopy 1971 Depression Screening 1971 Hepatitis C Screening 1971 DTaP/Tdap/Td Vaccine (1 - Tdap) 11/05/1982 Hepatitis B Screening 11/05/1989 Regular Well Visit/Exam 18-64 11/05/1989 Zoster Vaccine (1 of 2) 11/05/2021 Covid-19 Vaccine (4 - 2023-2 5 season) 2024 05/14/2022, 02/12/2022, 12/17/2021 Influenza Vaccine (#1) 2024 Pneumococcal vaccine <65 Aged Out No longer eligible based on patient's age to complete this topic Procedures Procedure Name Priority Date/Time Associated Diagnosis Comments POC INFLUENZA A/B, COVID-19 ANTIGEN Routine 06/12/2024 6:49 PM [employer] Acute nasopharyngitis POCT RAPID STREP Routine 06/12/2024 6:49 PM [employer] Acute nasopharyngitis THROAT CULTURE Routine 06/12/2024 6:49 PM [employer] Acute nasopharyngitis INFLUENZA A/B, RSV, AND COVID-19 PCR Routine 06/12/2024 6:49 PM [employer] Acute nasopharyngitis from Last 3 Months Results * POC Influenza A/B, COVID-19 antigen (06/12/2024 6:49 PM [employer]) Pathologist [facility] Influenza A Ag, POC Negative Negative [facility] Influenza B Ag, POC Negative Negative [facility] COVID-19 Ag POC Presumptive Negative Presumptive Negative, Invalid [facility] Nasal 06/12/2024 6:49 PM [employer] Miko Cervantes NP POINT OF CARE TEST ORDERABLES F inal Result [facility] [address] [place] [address] * Influenza A/B, RSV, and COVID-19 PCR Nasopharyngeal (06/12/2024 6:49 PM [employer]) Pathologist [facility] COVID-19 RNA Negative Negative Influenza A RNA Negative Negative [facility] Influenza B RNA Negative Negative [facility] RSV RNA Negative Negative [facility] Comment: Interpretive data: Testing performed by [facility]. This test is performed using the [employer] Xpert Xpress CoV-2/Flu/RSV plus assay. This is a multiplex, real-time reverse transcriptase PCR assay intended for the qualitative detection of nucleic acid from SARS-CoV-2, influenza A, influenza B, and respiratory syncytial virus. This assay has been cleared by the [place] Food and Drug administration. The performance characteristics have been verified by the [facility]. ??Results must be considered in the clinical context, and a negative result does not rule out infection. Interpretive Data last revised 2023 Nasopharyngeal 06/12/2024 6: 49 PM [employer] 06/12/2024 9:25 PM [employer] Narrative [facility] - 06/12/2024 10:07 PM [employer] Is the Patient experiencing symptoms consistent with COVID?->Yes Miko Cervantes NP LAB MICROBIOLOGY - GENERAL ORDE RABLES Final Result [facility] [id number] Department [place] [address] [place] * POCT rapid strep A (06/12/2024 6:49 PM [employer]) Rapid Strep A, POC Negative Negative Swab 06/12/2024 6:49 PM [employer] Miko Cervantes NP POINT OF CARE TEST ORDERABLES F inal Result * Throat culture Throat (06/12/2024 6:49 PM [employer]) Report Final Report: No growth of pathogens. Comment:Testing performed by : [facility], [address] [place]., [address] Throat 06/12/2024 6:49 PM [employer] 06/12/2024 11:56 PM [employer] Narrative [facility] - 06/13/2024 6:45 PM [employer] Testing performed by [facility] ([phone]). Miko Cervantes NP LAB MICROBIOLOGY - GENERAL ORDE RABTIMBO Final Result [facility] [id number] Department [place] [address] from Last 3 Months Insurance [employer] CHO[employer] Care Teams Communications Advisor Relationship Specialty Start Date End Date Unknown, Notinfile PCP - General 06/12/24
--- OUTSIDE RECORDS SUMMARY | 2024-06-29 15:23 | XMS_ITS | Referral Summary ---
Author Organization [facility] Address [address] [place] [address] Care Team Providers Care Department Secretary Name Role Phone Unknown, Notinfile Primary Care Provider Unavail able Encounters Date Type Department Care Team Description 06/12/2024 6:49 PM [employer] - 06/12/2024 11:59 PM [employer] Hospital Encounter [address] [address] Acute nasopharyngitis Discharge Disposition: Discharge to home or self care 06/12/2024 6:15 PM [employer] Office Visit [facility] Care at [address] [address] Miko Cervantes NP Acute nasopharyngitis (Primary Dx) from Last 3 Months Allergies Active Allergy Reactions Criticality Noted Date [...] Active Active Problems No known active problems Social History Tobacco Use Types Packs/Day Years Used Date Smoking Tobacco: Never Assessed Comments Unknown Sex and Gender Information Value Date Recorded Sex Assigned at Not on file Legal Sex Female 9:20 AM [employer] Gender Identity Not on file Sexual Orientation Not on file Last Filed Vital Signs Vital Sign Reading Time Taken Comments Blood Pressure 148/86 06/12/2024 6:18 PM [employer] Pulse 89 06/12/2024 6:18 PM [employer] Temperature 37 ??C (98.6 ??F) 06/12/2024 6:18 PM [employer] Respiratory Rate 20 06/12/2024 6:18 PM [employer] Oxygen Saturation 98% 06/12/2024 6:18 PM [employer] Inhaled Oxygen Concentration - - Weight 93.4 kg (206 lb) 06/12/2024 6:18 PM [employer] Height - - Body Mass Index - - Plan of Treatment Not on file Procedures Procedure Name Priority Date/Time Associated Diagnosis Comments POC INFLUENZA A/B, COVID-19 ANTIGEN Routine 06/12/2024 6:49 PM [employer] Acute nasopharyngitis POCT RAPID STREP Routine 06/12/2024 6:49 PM [employer] Acute nasopharyngitis THROAT CULTURE Routine 06/12/2024 6:49 PM [employer] Acute nasopharyngitis INFLUENZA A/B, RSV, AND COVID-19 PCR Routine 06/12/2024 6:49 PM [employer] Acute nasopharyngitis from Last 3 Months Results * POC Influenza A/B, COVID-19 antigen (06/12/2024 6:49 PM PLATE [employer]ER) Influenza A Ag, POC Negative Negative [facility] Influenza B Ag, POC Negative Negative [facility] COVID-19 Ag POC Presumptive Negative Presumptive Negative, Invalid [facility] Nasal 06/12/2024 6:49 PM PLATE COL[employer]ER Miko Cervantes NP POINT OF CARE TEST ORDERABLES F inal Result Performing Organization Address City[facility]/ZIP Co de Phone Number [facility] [address] [place] [address] * Influenza A/B, RSV, and COVID-19 PCR Nasopharyngeal (06/12/2024 6:49 PM PLATE COLORER) Pathologist [facility] COVID-19 RNA Negative Negative Influenza A RNA Negative Negative [facility] Influenza B RNA Negative Negative [facility] RSV RNA Negative Negative [facility] Comment: Interpretive data: Testing performed by [facility]. This test is performed using the [employer] Xpert Xpress CoV-2/Flu/RSV plus assay. This is a multiplex, real-time reverse transcriptase PCR assay intended for the qualitative detection of nucleic acid from SARS-CoV-2, influenza A, influenza B, and respiratory syncytial virus. This assay has been cleared by the [place] Food and Drug administration. The performance characteristics have been verified by the [facility]. ??Results must be considered in the clinical context, and a negative result does not rule out infection. Interpretive Data last revised 2023 Nasopharyngeal 06/12/2024 6: 49 PM PLATE COL[employer]ER 06/12/2024 9:25 PM PLATE COL[employer]ER Narrative [facility] - 06/12/2024 10:07 PM PLATE COLORER Is the Patient experiencing symptoms consistent with COVID?->Yes Miko Cervantes NP LAB MICROBIOLOGY - GENERAL ORDE RABLES Final Result Performing Organization Address City/[facility]/ZIP Co de Phone Number [facility] [phone] [address] Department [place] [address] * POCT rapid strep A (06/12/2024 6:49 PM [employer] COL[employer]ER) Rapid Strep A, POC Negative Negative Swab 06/12/2024 6:49 PM PLATE [employer]ER Miko Cervantes NP POINT OF CARE TEST ORDERABLES F inal Result * Throat culture Throat (06/12/2024 6:49 PM PLATE COL[employer]ER) Report Final Report: No growth of pathogens. Comment:Testing performed by : [facility], [address] [place]., [address] Throat 06/12/2024 6:49 PM PLATE COL[employer]ER 06/12/2024 11:56 PM PLATE COL[employer]ER Narrative [facility] - 06/13/2024 6:45 PM PLATE COL[employer]ER Testing performed by [facility] ([phone]). Miko Cervantes NP LAB MICROBIOLOGY - GENERAL HUMERA WARD Final Result [facility] [id number] Department of Laboratories [place], [place] [id number] from Last 3 Months Insurance [employer] [facility] Address: [facility] [id number] [place] [address] [employer] ACCESS CHOICE Care Teams Department Secretary Relationship Specialty Start Date End Date Unknown, Notinfile PCP - General 06/12/24
[2024-06-29 15:29] VITALS: BP 145/101; PULSE 73; RESP 20; TEMP 36.6; O2SAT 98
--- NOTE | 2024-06-29 16:10 | ED.GENADULT ---
HPI - General Adult General Chief complaint: Fall <Dara Chow, COMMERCIAL STRIPPER - Last Filed: 06/29/24 16:12> Stated complaint: fall 2 weeks ago-neck and shoulder pain <Dara Chow, COMMERCIAL STRIPPER - Last Filed: 06/29/24 16:12> Time Seen by Provider: 06/29/24 16:10 <Dara Roth September, COMMERCIAL STRIPPER - Last Filed: 06/29/24 16:12> Focused HPI: Mago Burgos is a 53 y/o female she states she slipped and fell on ice 2 weeks ago and hit her tail bone and her right forearm - she states shes having spasms and pain down her legs. + ambulatory in triage She took Tylenol today / her gabapentin /and the tens unit she thought she was getting better but now feels worse GENERAL: Well-appearing, well-nourished, and in no acute distress. HEAD: Normocephalic, atraumatic. CHEST: Clear to auscultation. ?No respiratory distress. HEART: Regular rate and rhythm.? NEURO: ?Alert and oriented x3. Patient screened in triage and initial orders placed.? ?Additional care and disposition to be based upon?diagnostic testing and treatment. <Dara Roth September, COMMERCIAL STRIPPER - Last Filed: 06/29/24 16:12> History of Present Illness HPI narrative: I agree with the assessment and documentation done by Samia Chow NP. <Missy Perez, COMMERCIAL STRIPPER - Last Filed: 06/29/24 18:57> Related Data Home medications: Home Medications ?Medication ?Instructions ?Recorded ?Confirmed ?Last Taken ?Type cetirizine 10 mg capsule (Zyrtec) 10 mg PO DAILY PRN Allergy Symptoms 06/24/23 06/23/24 Unknown History ergocalciferol (vitamin D2) 1,250 1,250 mcg PO WEEKLY 06/24/23 06/23/24 Unknown History mcg (50,000 unit) capsule fluticasone propionate 50 1 spray intranasal .PRN 06/24/23 06/23/24 Unknown History mcg/actuation nasal spray,suspension (Allergy Relief (fluticasone)) insulin lispro 100 unit/mL 8 unit subcut TID 06/24/23 06/23/24 Unknown History subcutaneous pen (Humalog KwikPen (U-100) Insulin) pen needle, diabetic 31 gauge x 06/24/23 06/23/24 Unknown History 5/16 (BD Ultra-Fine Short Pen Needle) B6 35 mg-B9 3 mg-B12 2 mg-D3 62.5 cap PO 10/09/23 06/23/24 Unknown History mcg-ALA 300 mg capsule,delay release (EB-N5 DR) terbinafine HCl 250 mg tablet 250 mg PO DAILY 10/09/23 06/23/24 Unknown History cyclobenzaprine 10 mg tablet 10 mg PO TID 10/31/23 06/23/24 Unknown History <Dara Chow APRN - Last Filed: 06/29/24 16:12> Allergies/adverse reactions: Allergies Allergy/AdvReac Type Severity Reaction Status Date / Time celecoxib (From Celebrex) Allergy Mild Unknown Verified 06/29/24 14:48 diphenhydramine (From Allergy Mild Unknown Verified 06/29/24 14:48 Benadryl) meloxicam (From Mobic) Allergy Mild Hives Verified 06/29/24 14:48 moxifloxacin (From Avelox) Allergy Mild Unknown Verified 06/29/24 14:48 sulfur dioxide Allergy Mild Unknown Verified 06/29/24 14:48 Penicillins Allergy Hives Verified 06/29/24 14:48 <Dara Chow APRN - Last Filed: 06/29/24 16:12> Review of Systems Review of Systems: All systems reviewed & are unremarkable except as noted in HPI and below <Missy Perez APRN - Last Filed: 06/29/24 18:57> [facility] Past Medical History Medical History: Medical History Vitamin B12 deficiency Migraines Asthma GERD (gastroesophageal reflux disease) Depression Osteoarthritis Fibromyalgia Diabetic neuropathy CORTEZ (obstructive sleep apnea) HLD (hyperlipidemia) HTN (hypertension) Diabetes <Dara Chow APRN - Last Filed: 06/29/24 16:12> Surgical History Surgical History: Surgical History Hx of foot surgery History of endometrial ablation History of tubal ligation <Dara Chow APRN - Last Filed: 06/29/24 16:12> Family History Family History: Family History Father Asthma Carcinoma of colon Hypertension Mother Hypertension Cerebrovascular accident <Dara Chow APRN - Last Filed: 06/29/24 16:12> Social History Social History: Social History Smoking packs per day: 1 Smoking cigarettes per day: 20.0 Years smoked: 25 Smoking pack-years: 25.00 Smoking status: Current every day smoker Tobacco type: cigarettes Alcohol intake: never Substance use: never Living arrangements: with family Occupation/Education: occupation Gender identity (if verbalized by the patient): Female Spiritual care concerns: No <Dara Chow APRN - Last Filed: 06/29/24 16:12> Exam Narrative: GENERAL: Well appearing, well-nourished, non-toxic, in mild distress d/t pain. HEAD: Normocephalic, atraumatic. NECK: Supple. No adenopathy, no masses. RESPIRATORY: Airway patent, respirations nonlabored. Clear to auscultation bilaterally, no rales, rhonchi, wheezing. CARDIOVASCULAR: Regular rate and rhythm without murmurs, rubs, or gallops. Peripheral pulses 2+ and equal bilaterally. ABDOMINAL: Soft, nontender, nondistended, no hepatosplenomegaly. Normoactive BS. MUSCULOSKELETAL: Moves all extremities. Strength/ROM intact without gross deformities. SKIN: Warm, dry, normal color. No rashes. NEURO: A&O X3. Speech clear. Cranial nerves II-XII grossly intact. No ataxic movements. PSYCHIATRIC: Appropriate mood and affect. Normal interaction. <Missy Perez APRN - Last Filed: 06/29/24 18:57> Course Vital Signs Vital signs: Vital Signs Temperature 36.6 C 06/29/24 15:29 Pulse Rate 73 06/29/24 15:29 Respiratory Rate 20 06/29/24 15:29 Blood Pressure 145/101 H 06/29/24 15:29 Pulse Oximetry 98 06/29/24 15:29 Oxygen Delivery Room Air 06/29/24 15:29 Temperature 36.8 C 06/29/24 18:14 Pulse Rate 86 06/29/24 18:14 Respiratory Rate 18 06/29/24 18:14 Blood Pressure 161/95 H 06/29/24 18:14 Pulse Oximetry 99 06/29/24 18:14 Oxygen Delivery Room Air 06/29/24 15:29 <Dara Chow, COMMERCIAL STRIPPER - Last Filed: 06/29/24 16:12> Vital Signs Temperature 36.6 C 06/29/24 15:29 Pulse Rate 73 06/29/24 15:29 Respiratory Rate 20 06/29/24 15:29 Blood Pressure 145/101 H 06/29/24 15:29 Pulse Oximetry 98 06/29/24 15:29 Oxygen Delivery Room Air 06/29/24 15:29 Temperature 36.8 C 06/29/24 18:14 Pulse Rate 86 06/29/24 18:14 Respiratory Rate 18 06/29/24 18:14 Blood Pressure 161/95 H 06/29/24 18:14 Pulse Oximetry 99 06/29/24 18:14 Oxygen Delivery Room Air 06/29/24 15:29 <Missy Perez, COMMERCIAL STRIPPER - Last Filed: 06/29/24 18:57> Medical Decision Making MDM Narrative Medical decision making narrative: Labs Ordered: None necessary Imaging Ordered: CT cervical spine, CT lumbar spine, right forearm x-ray Medications Ordered: Mcbrides, Decadron 10 mg IM Results: CT cervical spine scan indicates 1. No fracture 2. Severe cervical spondylosis. CT lumbar spine scan indicates Moderate lumbar spondylosis. Diagnosis: Cervical strain, lumbar strain, right forearm soft tissue injury, sciatica Consults: Neurosurgery (outpatient) Patient Education/Shared MDM: Results of imaging were shared with patient. She is requesting a shot of steroids here in the ER. Patient will be discharged with a prescription for muscle relaxants and a Medrol Dosepak. She should follow-up with her primary care provider and be referred to Neurosurgery for further evaluation. Patient may alternate ice and heat to treat pain. She verbalizes understanding and agreement with plan. Vital signs stable upon time of discharge. All questions answered. <Missy Perez, COMMERCIAL STRIPPER - Last Filed: 06/29/24 18:57> Differential Diagnosis Differential Diagnosis: Cervical strain, cervical sprain, cervical fracture, lumbar strain, lumbar fracture, whiplash, right forearm fracture, right forearm soft tissue injury <Missy Perez, COMMERCIAL STRIPPER - Last Filed: 06/29/24 18:57> Vital Signs Vital Signs: Vital Signs Temperature 36.6 C 06/29/24 15:29 Pulse Rate 73 06/29/24 15:29 Respiratory Rate 20 06/29/24 15:29 Blood Pressure 145/101 H 06/29/24 15:29 Pulse Oximetry 98 06/29/24 15:29 Oxygen Delivery Room Air 06/29/24 15:29 Temperature 36.8 C 06/29/24 18:14 Pulse Rate 86 06/29/24 18:14 Respiratory Rate 18 06/29/24 18:14 Blood Pressure 161/95 H 06/29/24 18:14 Pulse Oximetry 99 06/29/24 18:14 Oxygen Delivery Room Air 06/29/24 15:29 <Dara Chow, COMMERCIAL STRIPPER - Last Filed: 06/29/24 16:12> Vital Signs Temperature 36.6 C 06/29/24 15:29 Pulse Rate 73 06/29/24 15:29 Respiratory Rate 20 06/29/24 15:29 Blood Pressure 145/101 H 06/29/24 15:29 Pulse Oximetry 98 06/29/24 15:29 Oxygen Delivery Room Air 06/29/24 15:29 Temperature 36.8 C 06/29/24 18:14 Pulse Rate 86 06/29/24 18:14 Respiratory Rate 18 06/29/24 18:14 Blood Pressure 161/95 H 06/29/24 18:14 Pulse Oximetry 99 06/29/24 18:14 Oxygen Delivery Room Air 06/29/24 15:29 <Missy Perez, COMMERCIAL STRIPPER - Last Filed: 06/29/24 18:57> Imaging Data Attestation: I personally reviewed and interpreted this imaging study as follows: <Missy Perez, COMMERCIAL STRIPPER - Last Filed: 06/29/24 18:57> Radiologist's impression: Impressions Lumbar Spine CT 06/29/24 16:44 IMPRESSION: 1. Moderate lumbar spondylosis. Cervical Spine CT 06/29/24 16:47 IMPRESSION: 1. No fracture 2. Severe cervical spondylosis. Forearm X-Ray 06/29/24 16:50 IMPRESSION: 1. No fracture. <Missy Perez, - Last Filed: 06/29/24 18:57> Discharge Plan Discharge Clinical Impression: Cervical muscle strain, Lumbar strain, Sciatica <Dara CoreyChasity Claudine, Last Filed: 06/29/24 16:12> Patient Disposition: Home, Self-Care <Dara CoreyChasity September, Last Filed: 06/29/24 16:12> Condition: Stable <Dara J. September, Last Filed: 06/29/24 16:12> Instructions: Antibiotic Form, Cervical Strain (ED), Muscle Strain (ED) <Dara J. September, Last Filed: 06/29/24 16:12> Additional Instructions: Please return to the ER with an worsening symptoms. Follow-up with primary care provider in the next 2-3 days and Neurosurgery as soon as possible. Take all medications as prescribed. <Dara J. September, Last Filed: 06/29/24 16:12> Patient Language: Belarusian <Dara CoreyChasity September, Last Filed: 06/29/24 16:12> Prescriptions: New tizanidine [Zanaflex] 4 mg capsule 4 mg PO TID PRN (Reason: muscle spasticity) Qty: 20 0RF methylprednisolone [Medrol (Uriel)] 4 mg tablets,dose pack See Rx Instructions .ROUTE .COMPLEX Qty: 21 0RF Rx Instructions: for 6 days methylprednisolone [Medrol (Uriel)] 4 mg tablets,dose pack See Rx Instructions .ROUTE .COMPLEX Qty: 21 0RF Rx Instructions: for 6 days tizanidine [Zanaflex] 4 mg capsule 4 mg PO TID PRN (Reason: muscle spasticity) Qty: 14 0RF No Action terbinafine HCl 250 mg tablet 250 mg PO DAILY EB-N5 DR 35 mg-3 mg- 2 mg-62.5 mcg capsule,delayed release(DR/EC) PO dicyclomine 10 mg capsule 10 mg PO TID PRN (Reason: abdominal pain) Qty: 90 2RF omeprazole 40 mg capsule,delayed release(DR/EC) 40 mg PO BID Qty: 60 6RF metoclopramide HCl [Reglan] 10 mg tablet 10 mg PO .AM and HS Qty: 60 3RF insulin lispro [Humalog KwikPen Insulin] 100 unit/mL insulin pen 8 unit subcut TID (DME) pen needle, diabetic [BD Ultra-Fine Short Pen Needle] 31 gauge x 5/16 needle See Rx Instructions .Route Rx Instructions: As directed fluticasone propionate [Allergy Relief (fluticasone)] 50 mcg/actuation spray,suspension 1 spray intranasal .PRN Rx Instructions: administer into each nostril ergocalciferol (vitamin D2) 1,250 mcg (50,000 unit) capsule 1,250 mcg PO WEEKLY Zyrtec 10 mg capsule 10 mg PO DAILY PRN (Reason: Allergy Symptoms) cyclobenzaprine 10 mg tablet 10 mg PO TID gabapentin [Neurontin] 400 mg capsule 400 mg PO TID Qty: 270 2RF lisinopril 20 mg tablet 20 mg PO DAILY Qty: 90 2RF duloxetine [Cymbalta] 60 mg capsule,delayed release(DR/EC) 60 mg PO DAILY Qty: 90 1RF ezetimibe [Zetia] 10 mg tablet 10 mg PO DAILY Qty: 90 1RF montelukast [Singulair] 10 mg tablet 10 mg PO DAILY Qty: 90 1RF insulin glargine U-300 conc [Toujeo Max U-300 SoloStar] 300 unit/mL (3 mL) insulin pen 50 unit subcut DAILY Qty: 6 5RF rizatriptan 10 mg tablet See Rx Instructions .ROUTE .COMPLEX Qty: 10 5RF Rx Instructions: one po prn migraine, may repeat once after 2 hrs; nabumetone 750 mg tablet 750 mg PO BID Qty: 60 1RF Zenpep 60,000-189,600- 252,600 unit capsule,delayed release(DR/EC) See Rx Instructions .ROUTE .COMPLEX Qty: 120 0RF Dose Instruction: TAKE 1 CAPSULE BY MOUTH WITH MEALS AND SNACKS Rx Instructions: TAKE 1 CAPSULE BY MOUTH WITH MEALS AND SNACKS ondansetron 4 mg tablet,disintegrating See Rx Instructions .ROUTE .COMPLEX Qty: 10 2RF Dose Instruction: DISSOLVE 1 TABLET ON THE TONGUE EVERY 8 HOURS NEEDED FOR NAUSEA OR VOMITING Rx Instructions: DISSOLVE 1 TABLET ON THE TONGUE EVERY 8 HOURS NEEDED FOR NAUSEA OR VOMITING <Dara Chow, COMMERCIAL STRIPPER - Last Filed: 06/29/24 16:12> Follow-up/Referrals: Lalit Hammonds MD [Primary Care Provider] - Harleen Murcia MD [Physician] - (neurosurgery) <Dara Chow APRN - Last Filed: 06/29/24 16:12> Time of Disposition: 18:02 <Dara Chow APRN - Last Filed: 06/29/24 16:12> 18:02 <Missy Perez APRN - Last Filed: 06/29/24 18:57>
[2024-06-29] MEDS: HYDROcodone/acetaminophen (*CRX) 5-325 MG TABLET 1 TAB PO (17:47)
[2024-06-29] MEDS: dexAMETHasone SOD PHOS INJ 10 MG/ML 1 ML VIAL IM (17:55)
[2024-06-29 18:14] VITALS: BP 161/95; PULSE 86; RESP 18; TEMP 36.8; O2SAT 99
--- OUTSIDE RECORDS SUMMARY | 2024-06-29 18:30 | XMS_ITS | Clinical Summary ---
Author Organization [facility] Address [address] [place] [id number] Care Team Providers Care Lube Attendant Name Role Phone Unknown, Notinfile Primary Care [...] Department Care Team Description 06/12/2024 6:49 PM MAILS SUPERVISOR - 06/12/2024 11:59 PM MAILS SUPERVISOR Hospital Encounter [address] [address] Acute nasopharyngitis Discharge Disposition: Discharge to home or self care 06/12/2024 6:15 PM MAILS SUPERVISOR Office Visit [facility] Care at [address] [address] Miko Cervantes NP Acute nasopharyngitis (Primary Dx) from Last 3 Months Social History Tobacco Use Types Packs/Day Years Used Date Smoking Tobacco: Never Assessed Comments Unknown Sex and Gender Information Value Date Recorded Sex Assigned at Not on file Legal Sex Female 9:20 AM MAILS SUPERVISOR Gender Identity Not on file Sexual Orientation Not on file Last Filed Vital Signs Vital Sign Reading Time Taken Comments Blood Pressure 148/86 06/12/2024 6:18 PM MAILS SUPERVISOR Pulse 89 06/12/2024 6:18 PM MAILS SUPERVISOR Temperature 37 ??C (98.6 ??F) 06/12/2024 6:18 PM MAILS SUPERVISOR Respiratory Rate 20 06/12/2024 6:18 PM MAILS SUPERVISOR Oxygen Saturation 98% 06/12/2024 6:18 PM MAILS SUPERVISOR Inhaled Oxygen Concentration - - Weight 93.4 kg (206 lb) 06/12/2024 6:18 PM MAILS SUPERVISOR Height - - Body Mass Index - [...] A/B, COVID-19 ANTIGEN Routine 06/12/2024 6:49 PM MAILS SUPERVISOR Acute nasopharyngitis POCT RAPID STREP Routine 06/12/2024 6:49 PM MAILS SUPERVISOR Acute nasopharyngitis THROAT CULTURE Routine 06/12/2024 6:49 PM MAILS SUPERVISOR Acute nasopharyngitis INFLUENZA A/B, RSV, AND COVID-19 PCR Routine 06/12/2024 6:49 PM MAILS SUPERVISOR Acute nasopharyngitis from Last 3 Months Results * POC Influenza A/B, COVID-19 antigen (06/12/2024 6:49 PM MAILS SUPERVISOR) Pathologist [facility] Influenza A Ag, POC Negative Negative [facility] Influenza B Ag, POC Negative Negative [facility] COVID-19 Ag POC Presumptive Negative Presumptive Negative, Invalid [facility] Nasal 06/12/2024 6:49 PM MAILS SUPERVISOR Miko Cervantes NP POINT OF CARE TEST ORDERABLES F inal Result [facility] [address] [place] [address] * Influenza A/B, RSV, and COVID-19 PCR Nasopharyngeal (06/12/2024 6:49 PM MAILS SUPERVISOR) Pathologist [facility] COVID-19 RNA Negative Negative Influenza A RNA Negative Negative [facility] Influenza B RNA Negative Negative [facility] RSV RNA Negative Negative [facility] Comment: Interpretive data: Testing performed by [facility]. This test is performed using the [employer] Xpert Xpress CoV-2/Flu/RSV plus assay. This is a multiplex, real-time reverse transcriptase PCR assay intended for the qualitative detection of nucleic acid from SARS-CoV-2, influenza A, influenza B, and respiratory syncytial virus. This assay has been cleared by the [place] Food and Drug administration. The performance characteristics have been verified by the [facility]. ??Results must be considered in the clinical context, and a negative result does not rule out infection. Interpretive Data last revised 2023 Nasopharyngeal 06/12/2024 6: 49 PM MAILS SUPERVISOR 06/12/2024 9:25 PM MAILS SUPERVISOR Narrative [facility] - 06/12/2024 10:07 PM MAILS SUPERVISOR Is the Patient experiencing symptoms consistent with COVID?->Yes Miko Cervantes NP LAB MICROBIOLOGY - GENERAL ORDE RABLES Final Result [facility] [id number] [place] [address] [place] * POCT rapid strep A (06/12/2024 6:49 PM MAILS SUPERVISOR) Rapid Strep A, POC Negative Negative Swab 06/12/2024 6:49 PM MAILS SUPERVISOR Miko Cervantes NP POINT OF CARE TEST ORDERABLES F inal Result * Throat culture Throat (06/12/2024 6:49 PM MAILS SUPERVISOR) Report Final Report: No growth of pathogens. Comment:Testing performed by : [facility], [address] [place]., [address] Throat 06/12/2024 6:49 PM MAILS SUPERVISOR 06/12/2024 11:56 PM MAILS SUPERVISOR Narrative [facility] - 06/13/2024 6:45 PM MAILS SUPERVISOR Testing performed by [facility] ([phone]). Miko Cervantes NP LAB MICROBIOLOGY - GENERAL ORDE RABTIMBO Final Result [facility] [id number] [place] [address] from Last 3 Months Insurance ANTHEM ACCESS CHOICE ANTHEM ACCESS CHOICE Care Teams Lube Attendant Relationship Specialty Start Date End Date Unknown, Notinfile PCP - General 06/12/24
--- OUTSIDE RECORDS SUMMARY | 2024-06-29 18:30 | XMS_ITS | Referral Summary ---
Author Organization [facility] Address [address] [place] [address] Care Team Providers Care Relay Associate Name Role Phone Unknown, Notinfile Primary Care Provider Unavail able Encounters Date Type Department Care Team Description 06/12/2024 6:49 PM ASPHALT DISTRIBUTOR TENDER - 06/12/2024 11:59 PM ASPHALT DISTRIBUTOR TENDER Hospital Encounter [address] [address] Acute nasopharyngitis Discharge Disposition: Discharge to home or self care 06/12/2024 6:15 PM ASPHALT DISTRIBUTOR TENDER Office Visit [facility] Care at [address] [address] Miko Cervantes NP Acute nasopharyngitis [...] on file Legal Sex Female 9:20 AM ASPHALT DISTRIBUTOR TENDER Gender Identity Not on file Sexual Orientation Not on file Last Filed Vital Signs Vital Sign Reading Time Taken Comments Blood Pressure 148/86 06/12/2024 6:18 PM ASPHALT DISTRIBUTOR TENDER Pulse 89 06/12/2024 6:18 PM ASPHALT DISTRIBUTOR TENDER Temperature 37 ??C (98.6 ??F) 06/12/2024 6:18 PM ASPHALT DISTRIBUTOR TENDER Respiratory Rate 20 06/12/2024 6:18 PM ASPHALT DISTRIBUTOR TENDER Oxygen Saturation 98% 06/12/2024 6:18 PM ASPHALT DISTRIBUTOR TENDER Inhaled Oxygen Concentration - - Weight 93.4 kg (206 lb) 06/12/2024 6:18 PM ASPHALT DISTRIBUTOR TENDER Height - - Body Mass Index - - Plan of Treatment Not on file Procedures Procedure Name Priority Date/Time Associated Diagnosis Comments POC INFLUENZA A/B, COVID-19 ANTIGEN Routine 06/12/2024 6:49 PM ASPHALT DISTRIBUTOR TENDER Acute nasopharyngitis POCT RAPID STREP Routine 06/12/2024 6:49 PM ASPHALT DISTRIBUTOR TENDER Acute nasopharyngitis THROAT CULTURE Routine 06/12/2024 6:49 PM ASPHALT DISTRIBUTOR TENDER Acute nasopharyngitis INFLUENZA A/B, RSV, AND COVID-19 PCR Routine 06/12/2024 6:49 PM ASPHALT DISTRIBUTOR TENDER Acute nasopharyngitis from Last 3 Months Results * POC Influenza A/B, COVID-19 antigen (06/12/2024 6:49 PM ASPHALT DISTRIBUTOR TENDER) Influenza A Ag, POC Negative Negative [facility] Influenza B Ag, POC Negative Negative [facility] COVID-19 Ag POC Presumptive Negative Presumptive Negative, Invalid [facility] Nasal 06/12/2024 6:49 PM ASPHALT DISTRIBUTOR TENDER Miko Cervantes NP POINT OF CARE TEST ORDERABLES F inal Result Performing Organization Address City/[facility]/ZIP Co de Phone Number [facility] [address] [place] [address] * Influenza A/B, RSV, and COVID-19 PCR Nasopharyngeal (06/12/2024 6:49 PM ASPHALT DISTRIBUTOR TENDER) Pathologist [facility] COVID-19 RNA Negative Negative Influenza A RNA Negative Negative [facility] Influenza B RNA Negative Negative [facility] RSV RNA Negative Negative [facility] Comment: Interpretive data: Testing performed by [facility]. This test is performed using the [employer] Xpert Xpress CoV-2/Flu/RSV plus assay. This is a multiplex, real-time reverse transcriptase PCR assay intended for the qualitative detection of nucleic acid from SARS-CoV-2, influenza A, influenza B, and respiratory syncytial virus. This assay has been cleared by the [place] Food and Drug administration. The performance characteristics have been verified by the [facility]. ??Results must be considered in the clinical context, and a negative result does not rule out infection. Interpretive Data last revised 2023 Nasopharyngeal 06/12/2024 6: 49 PM ASPHALT DISTRIBUTOR TENDER 06/12/2024 9:25 PM ASPHALT DISTRIBUTOR TENDER Narrative [facility] - 06/12/2024 10:07 PM ASPHALT DISTRIBUTOR TENDER Is the Patient experiencing symptoms consistent with COVID?->Yes Miko Cervantes NP LAB MICROBIOLOGY - GENERAL ORDE RABLES Final Result Performing Organization Address City/[facility]/ZIP Co de Phone Number [facility] [id number] [address] Department [place] [address] * POCT rapid strep A (06/12/2024 6:49 PM ASPHALT DISTRIBUTOR TENDER) Rapid Strep A, POC Negative Negative Swab 06/12/2024 6:49 PM ASPHALT DISTRIBUTOR TENDER Miko Cervantes NP POINT OF CARE TEST ORDERABLES F inal Result * Throat culture Throat (06/12/2024 6:49 PM ASPHALT DISTRIBUTOR TENDER) Report Final Report: No growth of pathogens. Comment:Testing performed by : [facility], [address] [place]., [address] Throat 06/12/2024 6:49 PM ASPHALT DISTRIBUTOR TENDER 06/12/2024 11:56 PM ASPHALT DISTRIBUTOR TENDER Narrative [facility] - 06/13/2024 6:45 PM ASPHALT DISTRIBUTOR TENDER Testing performed by [facility] ([phone]). Miko Cervantes NP LAB MICROBIOLOGY - GENERAL HUMERA WARD Final Result [facility] [id number] Department of Laboratories [place], [place] [id number] from Last 3 Months Insurance [email or web address] ACCESS CHOICE [email or web address] ACC[employer] CHO[employer] Care Teams Relay Associate Relationship Specialty Start Date End Date Unknown, Notinfile PCP - General 06/12/24
== END 2024-06-29 18:35 | disposition home or self-care (01) ==
LOC: ANHED 18:28
PROVIDERS: Emergency Provider Nurse Practitioner Family; PCP Family Medicine
DX: S16.1XXA Strain of muscle, fascia and tendon at neck level, initial encounter (principal); S39.012A Strain of muscle, fascia and tendon of lower back, initial encounter; M54.30 Sciatica, unspecified side; F17.210 Nicotine dependence, cigarettes, uncomplicated; J45.909 Unspecified asthma, uncomplicated; K21.9 Gastro-esophageal reflux disease without esophagitis; F32.A Depression, unspecified; M19.90 Unspecified osteoarthritis, unspecified site; M79.7 Fibromyalgia; G47.30 Sleep apnea, unspecified; E78.5 Hyperlipidemia, unspecified; I10 Essential (primary) hypertension; Z79.4 Long term (current) use of insulin; W00.0XXA Fall on same level due to ice and snow, initial encounter
CPT/HCPCS: 72125; 72131; 73090; 96372; 99284; A9270; J1100

== ENCOUNTER 2024-07-12 07:26 | Emergency (ER) | payer BC, SELFPAY ==
--- NOTE | ~2024-07-12 | XR_ITS ---
Clinical Indication: Cough PA and lateral views of the chest: Comparison: 07/21/2023 Findings: The lungs are clear, without evidence of focal consolidation or pleural effusion. Cardiome diastinal silhouette is within normal limits. Bones and soft tissues are unremarkable. Impression: Normal chest. Reviewed, dictated and finalized at location . MOTIVE CRANE OPERATOR Impression: Normal chest.
--- OUTSIDE RECORDS SUMMARY | 2024-07-12 07:30 | XMS_ITS | Clinical Summary ---
Author Organization [facility] Address [address] [place] [phone] Care Team Providers Care User Experience Architect Name Role Phone Unknown, Notinfile Primary Care [...] Encounters Date Type Department Care Team Description 07/09/2024 9:30 AM TATTOO AND BODY ARTIST Ancillary Procedure [facility] Imaging at [address] [phone] Acute nasopharyngitis 06/12/2024 6:49 PM TATTOO AND BODY ARTIST - 06/12/2024 11:59 PM TATTOO AND BODY ARTIST Hospital Encounter [address] [address] Acute nasopharyngitis Discharge Disposition: Discharge to home or self care 06/12/2024 6:15 PM TATTOO AND BODY ARTIST Office Visit [facility] Convenient Care at [address] [phone] Miko Cervantes NP Acute nasopharyngitis (Primary Dx) from Last 3 Months Social History Tobacco Use Types Packs/Day Years Used Date Smoking Tobacco: Never Assessed Comments Unknown Sex and Gender Information Value Date Recorded Sex Assigned at Not on file Legal Sex Female 9:20 AM TATTOO AND BODY ARTIST Gender Identity Not on file Sexual Orientation Not on file Last Filed Vital Signs Vital Sign Reading Time Taken Comments Blood Pressure 148/86 06/12/2024 6:18 PM TATTOO AND BODY ARTIST Pulse 89 06/12/2024 6:18 PM TATTOO AND BODY ARTIST Temperature 37 C (98.6 F) 06/12/2024 6:18 PM TATTOO AND BODY ARTIST Respiratory Rate 20 06/12/2024 6:18 PM TATTOO AND BODY ARTIST Oxygen Saturation 98% 06/12/2024 6:18 PM TATTOO AND BODY ARTIST Inhaled Oxygen Concentration - - Weight 93.4 kg (206 lb) 06/12/2024 6:18 PM TATTOO AND BODY ARTIST Height - - Body Mass Index - - Plan of Treatment Health Maintenance Due Date Last Done Comments Breast Cancer Screening-Mammogram 1971 Cervical Cancer Screening 1971 Colon Cancer Screening-Colonoscopy 1971 Depression Screening 1971 Hepatitis C Screening 1971 DTaP/Tdap/Td Vaccine (1 - Tdap) 11/05/1982 Hepatitis B Screening 11/05/1989 Regular Well Visit/Exam 18-64 11/05/1989 Zoster Vaccine (1 of 2) 11/05/2021 Covid-19 Vaccine ( - 2023-2 5 season) 2024 05/14/2022, 02/12/2022, 12/17/2021 Influenza Vaccine Completed 03/23/2024 Pneumococcal vaccine <65 Aged Out No longer eligible based on patient's age to complete this topic Procedures Procedure Name Priority Date/Time Associated Diagnosis Comments XR CHEST PA LATERAL 2 VIEWS Schedule TRUE, Read TRUE (Appt Today, Awaiting Results) 07/09/2024 9:07 AM TATTOO AND BODY ARTIST Acute nasopharyngitis POC INFLUENZA A/B, COVID-19 ANTIGEN Routine 06/12/2024 6:49 PM TATTOO AND BODY ARTIST Acute nasopharyngitis POCT RAPID STREP Routine 06/12/2024 6:49 PM TATTOO AND BODY ARTIST Acute nasopharyngitis THROAT CULTURE Routine 06/12/2024 6:49 PM TATTOO AND BODY ARTIST Acute nasopharyngitis INFLUENZA A/B, RSV, AND COVID-19 PCR Routine 06/12/2024 6:49 PM TATTOO AND BODY ARTIST Acute nasopharyngitis from Last 3 Months Results * XR Chest PA Lateral 2 Views (07/09/2024 9:07 AM TATTOO AND BODY ARTIST) Anatomical Region Laterality Modality Body, Chest N/A Digital Radiogra phy 07/09/2024 11:0 4 AM TATTOO AND BODY ARTIST Narrative 07/09/2024 11:05 AM TATTOO AND BODY ARTIST EXAM DESCRIPTION: XR CHEST PA LATERAL 2 VIEWS REASON FOR STUDY: cough Cough for a month, with recent sob. History of asthma. No surgery to heart, lungs, or chest. Smoker for 20 years, 1/2 PPD TECHNIQUE: There are 2 radiographic view(s) of the chest. COMPARISON: No prior FINDINGS: LUNGS: Pulmonary vascularity appears normal. No confluent infiltrate or effusion. Costophrenic angles are sharp. HEART/MEDIASTINUM: Cardiac silhouette normal in size. Mediastinal and hilar contours appear normal. LINES/TUBES: None. BONES: Mild spondylosis thoracic spine. IMPRESSION: No acute cardiopulmonary abnormality. THIS IS AN ELECTRONICALLY VERIFIED FINAL REPORT 07/09/2024 11:05 AM - Electronically signed by Arpan MatthewsD. MJ T: Report ID: [id number] Reading Location: [id number] Procedure Note Apran Cook MD - 07/09/2024 EXAM DESCRIPTION: XR CHEST PA LATERAL 2 VIEWS REASON FOR STUDY: cough Cough for a month, with recent sob. History of asthma. No surgery toheart, lungs, or chest. Smoker for 20 years, 1/2 PPD TECHNIQUE: There are 2 radiographic view(s) of the chest. COMPARISON: No prior FINDINGS: LUNGS: Pulmonary vascularity appears normal. No confluent infiltrate or effusion. Costophrenic angles are sharp. HEART/MEDIASTINUM: Cardiac silhouette normal in size. Mediastinal andhilar contours appear normal. LINES/TUBES: None. BONES: Mild spondylosis thoracic spine. IMPRESSION: No acute cardiopulmonary abnormality. THIS IS AN ELECTRONICALLY VERIFIED FINAL REPORT 07/09/2024 11:05 AM - Electronically signed by Arpan FOX T: Report ID: [id number] Reading Location: [place] [address] Miko Cervantes NP IMG XR PROCEDURES Final Result * POC Influenza A/B, COVID-19 antigen (06/12/2024 6:49 PM TATTOO AND BODY ARTIST) Pathologist [facility] Influenza A Ag, POC Negative Negative [facility] Influenza B Ag, POC Negative Negative [facility] COVID-19 Ag POC Presumptive Negative Presumptive Negative, Invalid [facility] Nasal 06/12/2024 6:49 PM TATTOO AND BODY ARTIST us Miko Cervantes NP POINT OF CARE TEST ORDERABLES F inal Result [facility] [address] [place] [address] * Influenza A/B, RSV, and COVID-19 PCR Nasopharyngeal (06/12/2024 6:49 PM TATTOO AND BODY ARTIST) COVID-19 RNA Negative Negative [facility] Influenza A RNA Negative Negative [facility] Influenza B RNA Negative Negative [facility] RSV RNA Negative Negative [facility] Comment: Interpretive data: Testing performed by [facility]. This test is performed using the Song[employer]ice Xpert Xpress CoV-2/Flu/RSV plus assay. This is a multiplex, real-time reverse transcriptase PCR assay intended for the qualitative detection of nucleic acid from SARS-CoV-2, influenza A, influenza B, and respiratory syncytial virus. This assay has been cleared by the [place] Food and Drug administration. The performance characteristics have been verified by the [facility]. Results must be considered in the clinical context, and a negative result does not rule out infection. Interpretive Data last revised 2023 Nasopharyngeal 06/12/2024 6: 49 PM TATTOO AND BODY ARTIST 06/12/2024 9:25 PM TATTOO AND BODY ARTIST Narrative [facility] - 06/12/2024 10:07 PM TATTOO AND BODY ARTIST Is the Patient experiencing symptoms consistent with COVID?->Yes Miko Cervantes NP LAB MICROBIOLOGY - GENERAL [facility] Final Result [facility] [address] Department [place] [address] CH * POCT rapid strep A (06/12/2024 6:49 PM TATTOO AND BODY ARTIST) Rapid Strep A, POC Negative Negative Swab 06/12/2024 6:49 PM TATTOO AND BODY ARTIST Miko Cervantes NP POINT OF CARE TEST ORDERABLES F inal Result * Throat culture Throat (06/12/2024 6:49 PM TATTOO AND BODY ARTIST) Report Final Report: No growth of pathogens. Comment:Testing performed by : [facility], [address] [facility], [place]., [address] Throat 06/12/2024 6:49 PM TATTOO AND BODY ARTIST 06/12/2024 11:56 PM TATTOO AND BODY ARTIST Narrative [facility] - 06/13/2024 6:45 PM TATTOO AND BODY ARTIST Testing performed by [facility] Microbiology Laboratory ([phone]). us Miko Cervantes NP LAB MICROBIOLOGY - GENERAL NAILAMatilda SYLVIA Final Result [facility] [id number] Department [place] [address] from Last 3 Months Insurance [employer] ACCESS CHOICE [employer] ACCESS CHOICE Care Teams User Experience Architect Relationship Specialty Start Date End Date Unknown, Notinfile PCP - General 06/12/24
--- OUTSIDE RECORDS SUMMARY | 2024-07-12 07:30 | XMS_ITS | Referral Summary ---
Author Organization [facility] Address [address] [place] [phone] Care Team Providers Care Horse Show Judge Name Role Phone Unknown, Notinfile Primary Care Provider Unavail able Encounters Date Type Department Care Team Description 07/09/2024 9:30 AM HOST AND HOSTESS Ancillary Procedure [facility] Imaging at [address] [phone] Acute nasopharyngitis 06/12/2024 6:49 PM HOST AND HOSTESS - 06/12/2024 11:59 PM HOST AND HOSTESS Hospital Encounter [address] [id number] Acute nasopharyngitis Discharge Disposition: Discharge to home or self care 06/12/2024 6:15 PM HOST AND HOSTESS Office Visit [facility] Convenient Care at [address] [phone] Miko Cervantes NP Acute nasopharyngitis (Primary Dx) [...] on file Legal Sex Female 9:20 AM HOST AND HOSTESS Gender Identity Not on file Sexual Orientation Not on file Last Filed Vital Signs Vital Sign Reading Time Taken Comments Blood Pressure 148/86 06/12/2024 6:18 PM HOST AND HOSTESS Pulse 89 06/12/2024 6:18 PM HOST AND HOSTESS Temperature 37 C (98.6 F) 06/12/2024 6:18 PM HOST AND HOSTESS Respiratory Rate 20 06/12/2024 6:18 PM HOST AND HOSTESS Oxygen Saturation 98% 06/12/2024 6:18 PM HOST AND HOSTESS Inhaled Oxygen Concentration - - Weight 93.4 kg (206 lb) 06/12/2024 6:18 PM HOST AND HOSTESS Height - - Body Mass Index - - Plan of Treatment Not on file Procedures Procedure Name Priority Date/Time Associated Diagnosis Comments XR CHEST PA LATERAL 2 VIEWS Schedule TRUE, Read TRUE (Appt Today, Awaiting Results) 07/09/2024 9:07 AM HOST AND HOSTESS Acute nasopharyngitis POC INFLUENZA A/B, COVID-19 ANTIGEN Routine 06/12/2024 6:49 PM HOST AND HOSTESS Acute nasopharyngitis POCT RAPID STREP Routine 06/12/2024 6:49 PM HOST AND HOSTESS Acute nasopharyngitis THROAT CULTURE Routine 06/12/2024 6:49 PM HOST AND HOSTESS Acute nasopharyngitis INFLUENZA A/B, RSV, AND COVID-19 PCR Routine 06/12/2024 6:49 PM HOST AND HOSTESS Acute nasopharyngitis from Last 3 Months Results * XR Chest PA Lateral 2 Views (07/09/2024 9:07 AM HOST AND HOSTESS) Anatomical Region Laterality Modality Body, Chest N/A Digital Radiogra phy 07/09/2024 11:0 4 AM HOST AND HOSTESS Narrative 07/09/2024 11:05 AM HOST AND HOSTESS EXAM DESCRIPTION: XR CHEST PA LATERAL 2 [...] 11:05 AM - Electronically signed by Arpan Cook M.D. MJ T: Report ID: [id number] Reading Location: [id number] Procedure Note Arpan Cook MD - 07/09/2024 EXAM DESCRIPTION: XR [...] 11:05 AM - Electronically signed by Arpan Cook M.D. MJ T: Report ID: [id number] Reading Location: [place] [address] Miko Cervantes ORACLE DATA WAREHOUSE DEVELOPER IMG XR PROCEDURES Final Result * POC Influenza A/B, COVID-19 antigen (06/12/2024 6:49 PM HOST AND HOSTESS) Influenza A Ag, POC Negative Negative [facility] Influenza B Ag, POC Negative Negative [facility] COVID-19 Ag POC Presumptive Negative Presumptive Negative, Invalid [facility] Nasal 06/12/2024 6:49 PM HOST AND HOSTESS Miko Cervantes NP POINT OF CARE TEST ORDERABLES F inal Result [facility] [address] [place] [address] * Influenza A/B, RSV, and COVID-19 PCR Nasopharyngeal (06/12/2024 6:49 PM HOST AND HOSTESS) COVID-19 RNA Negative Negative Influenza A RNA Negative Negative [facility] Influenza B RNA Negative Negative [facility] RSV RNA Negative Negative [facility] Comment: Interpretive data: Testing performed by [facility]. This test is performed using the Innova Xpert Xpress CoV-2/Flu/RSV plus assay. This is a multiplex, real-time reverse transcriptase PCR assay intended for the qualitative detection of nucleic acid from SARS-CoV-2, influenza A, influenza B, and respiratory syncytial virus. This assay has been cleared by the [place] Food and Drug administration. The performance characteristics have been verified by the [facility]. Results must be considered in the clinical context, and a negative result does not rule out infection. Interpretive Data last revised 2023 Nasopharyngeal 06/12/2024 6: 49 PM HOST AND HOSTESS 06/12/2024 9:25 PM HOST AND HOSTESS Narrative [facility] - 06/12/2024 10:07 PM HOST AND HOSTESS Is the Patient experiencing symptoms consistent with COVID?->Yes Miko Cervantes NP LAB MICROBIOLOGY - GENERAL ORDE RABLES Final Result Performing Organization Address [facility] Co de Phone Number [facility] [address] Department [place] [address] CH * POCT rapid strep A (06/12/2024 6:49 PM HOST AND HOSTESS) Rapid Strep A, POC Negative Negative Swab 06/12/2024 6:49 PM HOST AND HOSTESS Miko Cervantes NP POINT OF CARE TEST ORDERABLES F inal Result * Throat culture Throat (06/12/2024 6:49 PM HOST AND HOSTESS) Report Final Report: No growth of pathogens. Comment:Testing performed by : [facility], [address] [facility], [place]., [address] Throat 06/12/2024 6:49 PM HOST AND HOSTESS 06/12/2024 11:56 PM HOST AND HOSTESS Narrative [facility] - 06/13/2024 6:45 PM HOST AND HOSTESS Testing performed by [facility] Microbiology Laboratory ([phone]). Miko Cervantes NP LAB MICROBIOLOGY - GENERAL ORDE RABLES Final Result Performing Organization Address [facility]/ZIP Co de Phone Number [facility] [phone] Department [place] [address] from Last 3 Months Insurance [employer] ACCESS CHOICE ANTHEM ACCESS CHOICE Care Teams Horse Show Judge Relationship Specialty Start Date End Date Unknown, Notinfile PCP - General 06/12/24
[2024-07-12 07:34] VITALS: BP 131/75; PULSE 76; RESP 19; TEMP 36.7; O2SAT 100
[2024-07-12 07:48] VITALS: RESP 19; O2SAT 100
--- OUTSIDE RECORDS SUMMARY | 2024-07-12 08:12 | XMS_ITS | Clinical Summary ---
Author Organization [facility] Address [address] [place] [phone] Care Team Providers Care Dimensional Integration Engineer Name Role Phone Unknown, Notinfile Primary Care [...] Department Care Team Description 07/09/2024 9:30 AM EXTRACTION MACHINE OPERATOR Ancillary Procedure [facility] Imaging at [address] [phone] Acute nasopharyngitis 06/12/2024 6:49 PM EXTRACTION MACHINE OPERATOR - 06/12/2024 11:59 PM EXTRACTION MACHINE OPERATOR Hospital Encounter [address] [phone] Acute nasopharyngitis Discharge Disposition: Discharge to home or self care 06/12/2024 6:15 PM EXTRACTION MACHINE OPERATOR Office Visit [facility] Convenient Care at [address] [phone] Miko Cervantes NP Acute nasopharyngitis (Primary Dx) from Last 3 Months Social History Tobacco Use Types Packs/Day Years Used Date Smoking Tobacco: Never Assessed Comments Unknown Sex and Gender Information Value Date Recorded Sex Assigned at Not on file Legal Sex Female 9:20 AM EXTRACTION MACHINE OPERATOR Gender Identity Not on file Sexual Orientation Not on file Last Filed Vital Signs Vital Sign Reading Time Taken Comments Blood Pressure 148/86 06/12/2024 6:18 PM EXTRACTION MACHINE OPERATOR Pulse 89 06/12/2024 6:18 PM EXTRACTION MACHINE OPERATOR Temperature 37 C (98.6 F) 06/12/2024 6:18 PM EXTRACTION MACHINE OPERATOR Respiratory Rate 20 06/12/2024 6:18 PM EXTRACTION MACHINE OPERATOR Oxygen Saturation 98% 06/12/2024 6:18 PM EXTRACTION MACHINE OPERATOR Inhaled Oxygen Concentration - - Weight 93.4 kg (206 lb) 06/12/2024 6:18 PM EXTRACTION MACHINE OPERATOR Height - - Body Mass Index - [...] (Appt Today, Awaiting Results) 07/09/2024 9:07 AM EXTRACTION MACHINE OPERATOR Acute nasopharyngitis POC INFLUENZA A/B, COVID-19 ANTIGEN Routine 06/12/2024 6:49 PM EXTRACTION MACHINE OPERATOR Acute nasopharyngitis POCT RAPID STREP Routine 06/12/2024 6:49 PM EXTRACTION MACHINE OPERATOR Acute nasopharyngitis THROAT CULTURE Routine 06/12/2024 6:49 PM EXTRACTION MACHINE OPERATOR Acute nasopharyngitis INFLUENZA A/B, RSV, AND COVID-19 PCR Routine 06/12/2024 6:49 PM EXTRACTION MACHINE OPERATOR Acute nasopharyngitis from Last 3 Months Results * XR Chest PA Lateral 2 Views (07/09/2024 9:07 AM EXTRACTION MACHINE OPERATOR) Anatomical Region Laterality Modality Body, Chest N/A Digital Radiogra phy 07/09/2024 11:0 4 AM EXTRACTION MACHINE OPERATOR Narrative 07/09/2024 11:05 AM EXTRACTION MACHINE OPERATOR EXAM DESCRIPTION: XR CHEST PA LATERAL 2 [...] by Arpan MatthewsD. MJ T: Report ID: [id number] Reading Location: [id number] Procedure Note Arpan Cook MD - 07/09/2024 [...] signed by Arpan FOX T: Report ID: [id number] Reading Location: [place] [address] Miko Cervantes NP IMG XR PROCEDURES Final Result * POC Influenza A/B, COVID-19 antigen (06/12/2024 6:49 PM EXTRACTION MACHINE OPERATOR) Pathologist [facility] Influenza A Ag, POC Negative Negative [facility] Influenza B Ag, POC Negative Negative [facility] COVID-19 Ag POC Presumptive Negative Presumptive Negative, Invalid [facility] Nasal 06/12/2024 6:49 PM EXTRACTION MACHINE OPERATOR us Miko Cervantes NP POINT OF CARE TEST ORDERABLES F inal Result [facility] [address] [place] [address] * Influenza A/B, RSV, and COVID-19 PCR Nasopharyngeal (06/12/2024 6:49 PM EXTRACTION MACHINE OPERATOR) COVID-19 RNA Negative Negative [facility] Influenza A RNA Negative Negative [facility] Influenza B RNA Negative Negative [facility] RSV RNA Negative Negative [facility] Comment: Interpretive data: Testing performed by [facility]. This test is performed using the [employer] Xpert Xpress CoV-2/Flu/RSV plus assay. This is a multiplex, real-time reverse transcriptase PCR assay intended for the qualitative detection of nucleic acid from SARS-CoV-2, influenza A, influenza B, and respiratory syncytial virus. This assay has been cleared by the [place] Food and Drug administration. The performance characteristics have been verified by the [facility]. Results must be considered in the clinical context, and a negative result does not rule out infection. Interpretive Data last revised 2023 Nasopharyngeal 06/12/2024 6: 49 PM EXTRACTION MACHINE OPERATOR 06/12/2024 9:25 PM EXTRACTION MACHINE OPERATOR Narrative [facility] - 06/12/2024 10:07 PM EXTRACTION MACHINE OPERATOR Is the Patient experiencing symptoms consistent with COVID?->Yes Miko Cervantes NP LAB MICROBIOLOGY - GENERAL [facility] Final Result [facility] [address] Department [place] [address] CH * POCT rapid strep A (06/12/2024 6:49 PM EXTRACTION MACHINE OPERATOR) Rapid Strep A, POC Negative Negative Swab 06/12/2024 6:49 PM EXTRACTION MACHINE OPERATOR Miko Cervantes NP POINT OF CARE TEST ORDERABLES F inal Result * Throat culture Throat (06/12/2024 6:49 PM EXTRACTION MACHINE OPERATOR) Report Final Report: No growth of pathogens. Comment:Testing performed by : [facility], [address] [facility] [address], [place]., [address] Throat 06/12/2024 6:49 PM EXTRACTION MACHINE OPERATOR 06/12/2024 11:56 PM EXTRACTION MACHINE OPERATOR Narrative [facility] - 06/13/2024 6:45 PM EXTRACTION MACHINE OPERATOR Testing performed by [facility] Microbiology Laboratory ([phone]). us Miko Cervantes NP LAB MICROBIOLOGY - GENERAL NAILAMatilda SYLVIA Final Result [facility] [id number] Department [place] [address] from Last 3 Months Insurance [employer] ACCESS CHOICE ANTH[employer]ew[employer] ACCESS CHOICE Care Teams Dimensional Integration Engineer Relationship Specialty Start Date End Date Unknown, Notinfile PCP - General 06/12/24
--- OUTSIDE RECORDS SUMMARY | 2024-07-12 08:12 | XMS_ITS | Referral Summary ---
Author Organization [facility] Address [address] [place] [phone] Care Team Providers Care Transfer Engineer Name Role Phone Unknown, Notinfile Primary Care Provider Unavail able Encounters Date Type Department Care Team Description 07/09/2024 9:30 AM CAMP MAINTENANCE SUPERVISOR Ancillary Procedure [facility] Imaging at [address] [phone] Acute nasopharyngitis 06/12/2024 6:49 PM CAMP MAINTENANCE SUPERVISOR - 06/12/2024 11:59 PM CAMP MAINTENANCE SUPERVISOR Hospital Encounter [address] [phone] Acute nasopharyngitis Discharge Disposition: Discharge to home or self care 06/12/2024 6:15 PM CAMP MAINTENANCE SUPERVISOR Office Visit [facility] Con[facility]ient Care at [address] [phone] Miko Cervantes NP Acute nasopharyngitis (Primary Dx) [...] on file Legal Sex Female 9:20 AM CAMP MAINTENANCE SUPERVISOR Gender Identity Not on file Sexual Orientation Not on file Last Filed Vital Signs Vital Sign Reading Time Taken Comments Blood Pressure 148/86 06/12/2024 6:18 PM CAMP MAINTENANCE SUPERVISOR Pulse 89 06/12/2024 6:18 PM CAMP MAINTENANCE SUPERVISOR Temperature 37 C (98.6 F) 06/12/2024 6:18 PM CAMP MAINTENANCE SUPERVISOR Respiratory Rate 20 06/12/2024 6:18 PM CAMP MAINTENANCE SUPERVISOR Oxygen Saturation 98% 06/12/2024 6:18 PM CAMP MAINTENANCE SUPERVISOR Inhaled Oxygen Concentration - - Weight 93.4 kg (206 lb) 06/12/2024 6:18 PM CAMP MAINTENANCE SUPERVISOR Height - - Body Mass Index - - Plan of Treatment Not on file Procedures Procedure Name Priority Date/Time Associated Diagnosis Comments XR CHEST PA LATERAL 2 VIEWS Schedule TRUE, Read TRUE (Appt Today, Awaiting Results) 07/09/2024 9:07 AM CAMP MAINTENANCE SUPERVISOR Acute nasopharyngitis POC INFLUENZA A/B, COVID-19 ANTIGEN Routine 06/12/2024 6:49 PM CAMP MAINTENANCE SUPERVISOR Acute nasopharyngitis POCT RAPID STREP Routine 06/12/2024 6:49 PM CAMP MAINTENANCE SUPERVISOR Acute nasopharyngitis THROAT CULTURE Routine 06/12/2024 6:49 PM CAMP MAINTENANCE SUPERVISOR Acute nasopharyngitis INFLUENZA A/B, RSV, AND COVID-19 PCR Routine 06/12/2024 6:49 PM CAMP MAINTENANCE SUPERVISOR Acute nasopharyngitis from Last 3 Months Results * XR Chest PA Lateral 2 Views (07/09/2024 9:07 AM CAMP MAINTENANCE SUPERVISOR) Anatomical Region Laterality Modality Body, Chest N/A Digital Radiogra phy 07/09/2024 11:0 4 AM CAMP MAINTENANCE SUPERVISOR Narrative 07/09/2024 11:05 AM CAMP MAINTENANCE SUPERVISOR EXAM DESCRIPTION: XR CHEST PA LATERAL 2 [...] Arpan Cook M.D. MJ T: Report ID: [id number] Reading Location: [id number] Procedure Note Arpan Cook MD - 07/09/2024 [...] Arpan Cook M.D. MJ T: Report ID: [id number] Reading Location: [place] [address] Miko Cervantes POULTRYMAN IMG XR PROCEDURES Final Result * POC Influenza A/B, COVID-19 antigen (06/12/2024 6:49 PM CAMP MAINTENANCE SUPERVISOR) Influenza A Ag, POC Negative Negative [facility] Influenza B Ag, POC Negative Negative [facility] COVID-19 Ag POC Presumptive Negative Presumptive Negative, Invalid [facility] Nasal 06/12/2024 6:49 PM CAMP MAINTENANCE SUPERVISOR Miko Cervantes NP POINT OF CARE TEST ORDERABLES F inal Result [facility] [address] [place] [address] * Influenza A/B, RSV, and COVID-19 PCR Nasopharyngeal (06/12/2024 6:49 PM CAMP MAINTENANCE SUPERVISOR) COVID-19 RNA Negative Negative Influenza A RNA Negative Negative [facility] Influenza B RNA Negative Negative [facility] RSV RNA Negative Negative [facility] Comment: Interpretive data: Testing performed by [facility]. This test is performed using the Shaker Xpert Xpress CoV-2/Flu/RSV plus assay. This is a multiplex, real-time reverse transcriptase PCR assay intended for the qualitative detection of nucleic acid from SARS-CoV-2, influenza A, influenza B, and respiratory syncytial virus. This assay has been cleared by the [place] Food and Drug administration. The performance characteristics have been verified by the [facility]. Results must be considered in the clinical context, and a negative result does not rule out infection. Interpretive Data last revised 2023 Nasopharyngeal 06/12/2024 6: 49 PM CAMP MAINTENANCE SUPERVISOR 06/12/2024 9:25 PM CAMP MAINTENANCE SUPERVISOR Narrative [facility] - 06/12/2024 10:07 PM CAMP MAINTENANCE SUPERVISOR Is the Patient experiencing symptoms consistent with COVID?->Yes Miko Cervantes NP LAB MICROBIOLOGY - GENERAL ORDE RABLES Final Result Performing Organization Address [facility] Co de Phone Number CONSTANZA HOOPER [phone] Department [place] [address] CH * POCT rapid strep A (06/12/2024 6:49 PM CAMP MAINTENANCE SUPERVISOR) Rapid Strep A, POC Negative Negative Swab 06/12/2024 6:49 PM CAMP MAINTENANCE SUPERVISOR Miko Cervantes NP POINT OF CARE TEST ORDERABLES F inal Result * Throat culture Throat (06/12/2024 6:49 PM CAMP MAINTENANCE SUPERVISOR) Report Final Report: No growth of pathogens. Comment:Testing performed by : [facility], [address] [facility], [place]., [address] Throat 06/12/2024 6:49 PM CAMP MAINTENANCE SUPERVISOR 06/12/2024 11:56 PM CAMP MAINTENANCE SUPERVISOR Narrative [facility] - 06/13/2024 6:45 PM CAMP MAINTENANCE SUPERVISOR Testing performed by [facility] Microbiology Laboratory ([phone]). Miko Cervantes NP LAB MICROBIOLOGY - GENERAL ORDE RABLES Final Result Performing Organization Address [facility]/ZIP Co de Phone Number CONSTANZA HOOPER [id number] Department [place] [address] from Last 3 Months Insurance [facility] ACCESS CHOICE ANTHEM ACCESS CHOICE Care Teams Transfer Engineer Relationship Specialty Start Date End Date Unknown, Notinfile PCP - General 06/12/24
--- NOTE | 2024-07-12 08:18 | ED.GENADULT ---
HPI - General Adult General Chief complaint: Unspecified Stated complaint: suspected pneumonia Time Seen by Provider: 07/12/24 07:32 History of Present Illness HPI narrative: 53-year-old female presenting to the emergency department for evaluation for cough congestion sinus infection this been ongoing for approximately 1 month. Patient states her symptoms started a month ago they did improvement in the worsened again approximately 1 week ago. Patient did have follow-up with urgent care on Friday and had negative chest x-ray. Patient states over the course of the week and her symptoms have worsened. Patient does have cough and congestion during the interview. Related Data Home Medications ?Medication ?Instructions ?Recorded ?Confirmed ?Last Taken ?Type cetirizine 10 mg capsule (Zyrtec) 10 mg PO DAILY PRN Allergy Symptoms 06/24/23 07/07/24 Unknown History ergocalciferol (vitamin D2) 1,250 1,250 mcg PO WEEKLY 06/24/23 07/07/24 Unknown History mcg (50,000 unit) capsule fluticasone propionate 50 1 spray intranasal .PRN 06/24/23 07/07/24 Unknown History mcg/actuation nasal spray,suspension (Allergy Relief (fluticasone)) insulin lispro 100 unit/mL 8 unit subcut TID 06/24/23 07/07/24 Unknown History subcutaneous pen (Humalog KwikPen (U-100) Insulin) pen needle, diabetic 31 gauge x 06/24/23 07/07/24 Unknown History 5/16 (BD Ultra-Fine Short Pen Needle) B6 35 mg-B9 3 mg-B12 2 mg-D3 62.5 cap PO 10/09/23 07/07/24 Unknown History mcg-ALA 300 mg capsule,delay release (EB-N5 ) terbinafine HCl 250 mg tablet 250 mg PO DAILY 10/09/23 07/07/24 Unknown History cyclobenzaprine 10 mg tablet 10 mg PO TID 10/31/23 07/07/24 Unknown History Allergies Allergy/AdvReac Type Severity Reaction Status Date / Time celecoxib (From Celebrex) Allergy Mild Unknown Verified 07/12/24 09:29 diphenhydramine (From Allergy Mild Unknown Verified 07/12/24 09:29 Benadryl) meloxicam (From Mobic) Allergy Mild Hives Verified 07/12/24 09:29 moxifloxacin (From Avelox) Allergy Mild Unknown Verified 07/12/24 09:29 sulfur dioxide Allergy Mild Unknown Verified 07/12/24 09:29 Penicillins Allergy Hives Verified 07/12/24 09:29 Review of Systems Review of Systems: All systems reviewed & are unremarkable except as noted in HPI and below [facility] Past Medical History Medical History Vitamin B12 deficiency Migraines Asthma GERD (gastroesophageal reflux disease) Depression Osteoarthritis Fibromyalgia Diabetic neuropathy CORTEZ (obstructive sleep apnea) HLD (hyperlipidemia) HTN (hypertension) Diabetes Surgical History Surgical History Hx of foot surgery History of endometrial ablation History of tubal ligation Family History Family History Father Asthma Carcinoma of colon Hypertension Mother Hypertension Cerebrovascular accident Social History Social History Smoking packs per day: 1 Smoking cigarettes per day: 20.0 Years smoked: 25 Smoking pack-years: 25.00 Smoking status: Current every day smoker Tobacco type: cigarettes Alcohol intake: never Substance use: never Living arrangements: with family Occupation/Education: occupation Gender identity (if verbalized by the patient): Female Spiritual care concerns: No Exam Narrative: APPEARANCE: Well appearing, no pain, no distress, well-nourished. HEAD: normocephalic, atraumatic. EYES: PERRLA/EOMI, conjunctivae clear. NOSE: Normal no drainage EARS:TMS clear with good light reflex. THROAT: Pharynx clear, no exudate. NECK: Supple. No adenopathy, no masses. RESPIRATORY: Coughing with decreased lung sounds in the lower lobes bilaterally. CARDIOVASCULAR: Regular rate and rhythm without murmurs rubs or gallops. ABDOMINAL: Soft, nontender, nondistended, normal bowel sounds MUSCULOSKELETAL: Moves all extremities. Strength/ROM intact, No edema, No calf tenderness. NEURO: Alert. Cranial nerves II through XII intact. Grossly intact SKIN: Warm, dry. Normal Color Course Vital Signs Vital signs: Vital Signs Temperature 98.1 F 07/12/24 07:34 Pulse Rate 76 07/12/24 07:34 Respiratory Rate 19 07/12/24 07:34 Blood Pressure 131/75 07/12/24 07:34 Pulse Oximetry 100 07/12/24 07:34 Oxygen Delivery Room Air 07/12/24 07:34 Temperature 98.0 F 07/12/24 09:36 Pulse Rate 79 07/12/24 09:36 Respiratory Rate 20 07/12/24 09:36 Blood Pressure 140/88 07/12/24 09:36 Pulse Oximetry 97 07/12/24 09:36 Oxygen Delivery Room Air 07/12/24 07:34 Medical Decision Making [facility] Narrative Medical decision making narrative: 53-year-old female presents emergency department for evaluation for cough and congestion. Patient is currently afebrile with normal pulse ox. Chest x-ray was negative. Patient was negative for influenza COVID RSV. Patient did have some improvement with her albuterol treatment. Patient does have cough and congestion. With patient's smoking history and duration of her illness patient will be started on antibiotics and treated for a COPD exacerbation versus pneumonia Differential Diagnosis Differential Diagnosis: COVID, RSV, influenza, pneumonia, pneumothorax Vital Signs Vital Signs: Vital Signs Temperature 98.1 F 07/12/24 07:34 Pulse Rate 76 07/12/24 07:34 Respiratory Rate 19 07/12/24 07:34 Blood Pressure 131/75 07/12/24 07:34 Pulse Oximetry 100 07/12/24 07:34 Oxygen Delivery Room Air 07/12/24 07:34 Temperature 98.0 F 07/12/24 09:36 Pulse Rate 79 07/12/24 09:36 Respiratory Rate 20 07/12/24 09:36 Blood Pressure 140/88 07/12/24 09:36 Pulse Oximetry 97 07/12/24 09:36 Oxygen Delivery Room Air 07/12/24 07:34 Lab Data Lab results reviewed: Yes I reviewed the patient's lab results. Labs: Lab Results 07/12/24 Range/Units 07:43 Influenza A (RT-PCR) Negative (Negative) Influenza B (RT-PCR) Negative (Negative) RSV (RT-PCR) Negative (Negative) SARS-CoV-2 RNA (RT-PCR) Negative (Negative) Imaging Data Radiologist's impression: Impressions Chest X-Ray 07/12/24 07:55 Impression: Normal chest. Discharge Plan Discharge Clinical Impression: Pneumonia Patient Disposition: Home, Self-Care Condition: Stable Instructions: Antibiotic Form, Pneumonia (ED) Additional Instructions: Albuterol inhaler for cough and shortness of breath. Tessalon Perles for cough. Antibiotic as directed until completed. Have close follow-up with your primary care physician. Quit smoking Patient Language: Citizen Of [place] Prescriptions: New benzonatate 100 mg capsule 100 mg PO TID PRN (Reason: cough) Qty: 14 0RF albuterol sulfate 90 mcg/actuation HFA aerosol inhaler 1 puff inhalation QID Qty: 6.7 0RF doxycycline monohydrate 100 mg capsule 100 mg PO BID 7 Days Qty: 14 0RF azithromycin 250 mg tablet See Rx Instructions PO .COMPLEX Qty: 6 0RF Rx Instructions: For 250 mg dose pack: take 500 mg today (day 1), then 250 mg for 4 days (days 2-5) prednisone 50 mg tablet 50 mg PO DAILY 5 Days Qty: 5 0RF No Action terbinafine HCl 250 mg tablet 250 mg PO DAILY EB-N5 DR 35 mg-3 mg- 2 mg-62.5 mcg capsule,delayed release(DR/EC) PO dicyclomine 10 mg capsule 10 mg PO TID PRN (Reason: abdominal pain) Qty: 90 2RF omeprazole 40 mg capsule,delayed release(DR/EC) 40 mg PO BID Qty: 60 6RF metoclopramide HCl [Reglan] 10 mg tablet 10 mg PO .AM and HS Qty: 60 3RF insulin lispro [Humalog KwikPen Insulin] 100 unit/mL insulin pen 8 unit subcut TID (DME) pen needle, diabetic [BD Ultra-Fine Short Pen Needle] 31 gauge x 5/16 needle See Rx Instructions .Route Rx Instructions: As directed fluticasone propionate [Allergy Relief (fluticasone)] 50 mcg/actuation spray,suspension 1 spray intranasal .PRN Rx Instructions: administer into each nostril ergocalciferol (vitamin D2) 1,250 mcg (50,000 unit) capsule 1,250 mcg PO WEEKLY Zyrtec 10 mg capsule 10 mg PO DAILY PRN (Reason: Allergy Symptoms) cyclobenzaprine 10 mg tablet 10 mg PO TID gabapentin [Neurontin] 400 mg capsule 400 mg PO TID Qty: 270 2RF lisinopril 20 mg tablet 20 mg PO DAILY Qty: 90 2RF ezetimibe [Zetia] 10 mg tablet 10 mg PO DAILY Qty: 90 1RF montelukast [Singulair] 10 mg tablet 10 mg PO DAILY Qty: 90 1RF insulin glargine U-300 conc [Toujeo Max U-300 SoloStar] 300 unit/mL (3 mL) insulin pen 50 unit subcut DAILY Qty: 6 5RF rizatriptan 10 mg tablet See Rx Instructions .ROUTE .COMPLEX Qty: 10 5RF Rx Instructions: one po prn migraine, may repeat once after 2 hrs; nabumetone 750 mg tablet 750 mg PO BID Qty: 60 1RF Zenpep 60,000-189,600- 252,600 unit capsule,delayed release(DR/EC) See Rx Instructions .ROUTE .COMPLEX Qty: 120 0RF Dose Instruction: TAKE 1 CAPSULE BY MOUTH WITH MEALS AND SNACKS Rx Instructions: TAKE 1 CAPSULE BY MOUTH WITH MEALS AND SNACKS ondansetron 4 mg tablet,disintegrating See Rx Instructions .ROUTE .COMPLEX Qty: 10 2RF Dose Instruction: DISSOLVE 1 TABLET ON THE TONGUE EVERY 8 HOURS NEEDED FOR NAUSEA OR VOMITING Rx Instructions: DISSOLVE 1 TABLET ON THE TONGUE EVERY 8 HOURS NEEDED FOR NAUSEA OR VOMITING duloxetine [Cymbalta] 60 mg capsule,delayed release(DR/EC) 60 mg PO DAILY Qty: 90 1RF Follow-up/Referrals: Lalit Hammonds MD [Primary Care Provider] - Stand Alone Forms: Work/School Release IP
[2024-07-12 08:24] LABS: Influenza A QL RT-PCR Negative (Negative); Influenza B QL RT-PCR Negative (Negative); RSV RNA, RT-PCR Negative (Negative); SARS-CoV-2 RNA PCR Negative (Negative)
[2024-07-12] MEDS: BENZONATATE 100 MG CAPSULE PO (08:30)
[2024-07-12] MEDS: ALBUTEROL SULFATE NEB 2.5 MG/3 ML INH 5 MG INHALATION (08:47)
[2024-07-12 08:48] VITALS: PULSE 80; RESP 20
[2024-07-12 09:00] VITALS: PULSE 77; RESP 20
[2024-07-12] MEDS: DOXYCYCLINE HYCLATE 100 MG TABLET PO (09:29)
[2024-07-12] MEDS: AZITHROMYCIN 250 MG TABLET 500 MG PO (09:30)
[2024-07-12 09:35] VITALS: BP 140/88; PULSE 79; RESP 20; TEMP 36.7; O2SAT 97
[2024-07-12 09:36] VITALS: BP 140/88; PULSE 79; RESP 20; TEMP 36.7; O2SAT 97
== END 2024-07-12 09:37 | disposition home or self-care (01) ==
PROVIDERS: Emergency Provider Emergency Medicine; PCP Family Medicine
DX: J18.9 Pneumonia, unspecified organism (principal); Z20.822 Contact with and (suspected) exposure to COVID-19; F17.210 Nicotine dependence, cigarettes, uncomplicated; J45.909 Unspecified asthma, uncomplicated; K21.9 Gastro-esophageal reflux disease without esophagitis; F32.A Depression, unspecified; M19.90 Unspecified osteoarthritis, unspecified site; M79.7 Fibromyalgia; E11.40 Type 2 diabetes mellitus with diabetic neuropathy, unspecified; G47.30 Sleep apnea, unspecified; E78.5 Hyperlipidemia, unspecified; I10 Essential (primary) hypertension; Z79.4 Long term (current) use of insulin
CPT/HCPCS: 71046; 87637; 94640; 99283; A9270

== ENCOUNTER 2024-08-06 08:13 | Outpatient (CLI) | payer BC, SELFPAY ==
--- NOTE | ~2024-08-06 | CT_ITS ---
EXAMINATION: CT lung screening DATE: 08/06/2024 08:33 INDICATION: Personal history of nicotine dependence TECHNIQUE: Computed tomography (CT) of the chest was performed without intravenous contrast. Addition al 3D reconstructions utilizing coronal maximum intensity projection (MIP) were performed. Automated exposure control and iterative reconstruction technique were employed. The dose-length product was 14 8.94 mGy-cm. COMPARISON: 07/21/2023 FINDINGS: Mild dependent atelectasis in the bilateral lower lobes. There is a new region of the [place] in the posterior basilar segment of the right lower lobe with multiple small centrilobular glass nodules, the largest measuring 9 mm in maximal diameter. The distribution suggests an infectious/inf lammatory process with endobronchial spread of disease. No other pulmonary nodules, pulmonary edema o r pleural effusion. Heart size is normal. No pericardial effusion. Thoracic aorta is normal in calibe r. No pathologically enlarged thoracic lymphadenopathy. Mild thoracic spondylosis. IMPRESSION: 1. Lung-RADS category 2: Benign appearance or behavior. Continue annual screening with noncontrast lo w-dose chest CT in 12 months. Reviewed, dictated and finalized at location B. ERSITY PRESIDENT IMPRESSION: 1. Lung-RADS category 2: Benign appearance or behavior. Continue annual screeni ng with noncontrast low-dose chest CT in 12 months.
== END 2024-08-06 08:14 | disposition home or self-care (01) ==
PROVIDERS: PCP Family Medicine; Visit Provider Student in an Organized Health Care Education/Training Program
DX: Z12.2 Encounter for screening for malignant neoplasm of respiratory organs (principal); Z87.891 Personal history of nicotine dependence
CPT/HCPCS: 71271

== ENCOUNTER 2024-08-20 06:39 | Outpatient (CLI) | payer BC, SELFPAY ==
--- NOTE | ~2024-08-20 | MR_ITS ---
MRI of the lumbar spine Clinical History: Stenosis Technique: Axial T2-weighted images, and sagittal T1-weighted, T2-weighted, and T2 fat-sat images wer e acquired. Findings: There is no fracture or subluxation of the lumbar spine. Vertebral bodies maintain normal h eight and alignment. No bone marrow signal reality seen. At L1-L2, there is moderate degenerative disc narrowing. No significant disc bulge or herniation. No spinal canal stenosis or definite neural foraminal narrowing. At L2-L3, mild disc narrowing. There is left foraminal disc bulge. There is mild facet arthropathy. N o central canal stenosis or definite neural foraminal narrowing. At L3-L4, there is mild diffuse disc bulge with moderate facet arthropathy. No central canal stenosis . There is mild to moderate bilateral neural foraminal narrowing, right worse than left. At L4-L5, there is diffuse disc bulge with severe facet arthropathy. There is minimal central canal s tenosis. There is moderate to advanced right neural foraminal narrowing, and mild to moderate left ne ural foraminal narrowing. At L5-S1, there is minimal disc bulge with moderate facet arthropathy. No central canal stenosis or d efinite neural foraminal narrowing. Paravertebral soft tissues are unremarkable. Impression: Moderate degenerative spondylosis overall, as above, probably worst at L4-L5. Reviewed, dictated and finalized at [facility]. Impression: Moderate degenerative spondylosis overall, as above, probably worst at L4-L5.
--- NOTE | ~2024-08-20 | MR_ITS ---
MRI of the cervical spine Clinical History: Myelopathy Technique: Axial T2-weighted and gradient images, and sagittal T1-weighted, T2-weighted, and STIR cintia ges were acquired. Findings: No acute fracture or subluxation seen. There is mild reversal normal cervical lordosis. No bone marrow signal abnormality seen. At C2-C3, there is no disc bulge or herniation. No spinal canal stenosis, cord compression, or neural foraminal narrowing. At C3-C4, there is no disc bulge or herniation. No spinal canal stenosis, cord compression, or neural foraminal narrowing. At C4-C5, there is mild disc osteophyte complex. There is left neural foraminal narrowing. No spinal canal stenosis, cord compression, or right neural foraminal narrowing. At C5-C6, there is degenerative disc narrowing with mild disc osteophyte complex. There is probable m ild bilateral neural foraminal narrowing. No canal stenosis or cord compression. At C6-C7, there is degenerative disc narrowing with disc osteophyte complex. There is significant hong ateral neural foraminal narrowing, left worse than right. No spinal canal stenosis or cord compressio n. No abnormal signal seen in the spinal cord. Paravertebral soft tissues are unremarkable. Impression: Moderate degenerative spondylosis at C5-C6 and C6-C7, as detailed above. Mild reversal of the normal cervical lordosis. Reviewed, dictated and finalized at [facility]. Impression: Moderate degenerative spondylosis at C5-C6 and C6-C7, as detailed above. Mild reversal of the normal cervical lordosis.
--- OUTSIDE RECORDS SUMMARY | 2024-08-20 06:43 | XMS_ITS | Clinical Summary ---
Author Organization [facility] Address [address] [place] [phone] Care Team Providers Care Motor Grader Operator Name Role Phone Unknown, Notinfile Primary Care [...] Department Care Team Description 07/09/2024 9:30 AM STRAW HAT PLUNGER OPERATOR Ancillary Procedure [facility] Imaging at [address] [phone] Acute nasopharyngitis 06/12/2024 6:49 PM STRAW HAT PLUNGER OPERATOR - 06/12/2024 11:59 PM STRAW HAT PLUNGER OPERATOR Hospital Encounter [address] [phone] Acute nasopharyngitis Discharge Disposition: Discharge to home or self care 06/12/2024 6:15 PM STRAW HAT PLUNGER OPERATOR Office Visit [facility] Convenient Care at [address] [phone] Miko Cervantes NP Acute nasopharyngitis (Primary Dx) from Last 3 Months Social History Tobacco Use Types Packs/Day Years Used Date Smoking Tobacco: Never Assessed Comments Unknown Sex and Gender Information Value Date Recorded Sex Assigned at Not on file Legal Sex Female 9:20 AM STRAW HAT PLUNGER OPERATOR Gender Identity Not on file Sexual Orientation Not on file Last Filed Vital Signs Vital Sign Reading Time Taken Comments Blood Pressure 148/86 06/12/2024 6:18 PM STRAW HAT PLUNGER OPERATOR Pulse 89 06/12/2024 6:18 PM STRAW HAT PLUNGER OPERATOR Temperature 37 C (98.6 F) 06/12/2024 6:18 PM STRAW HAT PLUNGER OPERATOR Respiratory Rate 20 06/12/2024 6:18 PM STRAW HAT PLUNGER OPERATOR Oxygen Saturation 98% 06/12/2024 6:18 PM STRAW HAT PLUNGER OPERATOR Inhaled Oxygen Concentration - - Weight 93.4 kg (206 lb) 06/12/2024 6:18 PM STRAW HAT PLUNGER OPERATOR Height - - Body Mass Index [...] (Appt Today, Awaiting Results) 07/09/2024 9:07 AM STRAW HAT PLUNGER OPERATOR Acute nasopharyngitis POC INFLUENZA A/B, COVID-19 ANTIGEN Routine 06/12/2024 6:49 PM STRAW HAT PLUNGER OPERATOR Acute nasopharyngitis POCT RAPID STREP Routine 06/12/2024 6:49 PM STRAW HAT PLUNGER OPERATOR Acute nasopharyngitis THROAT CULTURE Routine 06/12/2024 6:49 PM STRAW HAT PLUNGER OPERATOR Acute nasopharyngitis INFLUENZA A/B, RSV, AND COVID-19 PCR Routine 06/12/2024 6:49 PM STRAW HAT PLUNGER OPERATOR Acute nasopharyngitis from Last 3 Months Results * XR Chest PA Lateral 2 Views (07/09/2024 9:07 AM STRAW HAT PLUNGER OPERATOR) Anatomical Region Laterality Modality Body, Chest N/A Digital Radiogra phy 07/09/2024 11:0 4 AM STRAW HAT PLUNGER OPERATOR Narrative 07/09/2024 11:05 AM STRAW HAT PLUNGER OPERATOR EXAM DESCRIPTION: XR CHEST PA LATERAL [...] by Arpan MatthewsD. MJ T: Report ID: [id number] Reading Location: [id number] Procedure Note Arpan Cook MD - 07/09/2024 [...] signed by Arpan FOX T: Report ID: [id number] Reading Location: [place] [address] Miko Cervantes NP IMG XR PROCEDURES Final Result * POC Influenza A/B, COVID-19 antigen (06/12/2024 6:49 PM STRAW HAT PLUNGER OPERATOR) Pathologist [facility] Influenza A Ag, POC Negative Negative [facility] Influenza B Ag, POC Negative Negative [facility] COVID-19 Ag POC Presumptive Negative Presumptive Negative, Invalid [facility] Nasal 06/12/2024 6:49 PM STRAW HAT PLUNGER OPERATOR us Miko Cervantes NP POINT OF CARE TEST ORDERABLES F inal Result [facility] [address] [place] [address] * Influenza A/B, RSV, and COVID-19 PCR Nasopharyngeal (06/12/2024 6:49 PM STRAW HAT PLUNGER OPERATOR) COVID-19 RNA Negative Negative [facility] Influenza A RNA Negative Negative [facility] Influenza B RNA Negative Negative [facility] RSV RNA Negative Negative [facility] Comment: Interpretive data: Testing performed by [facility]. This test is performed using the Docin Xpert Xpress CoV-2/Flu/RSV plus assay. This is a multiplex, real-time reverse transcriptase PCR assay intended for the qualitative detection of nucleic acid from SARS-CoV-2, influenza A, influenza B, and respiratory syncytial virus. This assay has been cleared by the [place] Food and Drug administration. The performance characteristics have been verified by the [facility]. Results must be considered in the clinical context, and a negative result does not rule out infection. Interpretive Data last revised 2023 Nasopharyngeal 06/12/2024 6: 49 PM STRAW HAT PLUNGER OPERATOR 06/12/2024 9:25 PM STRAW HAT PLUNGER OPERATOR Narrative [facility] - 06/12/2024 10:07 PM STRAW HAT PLUNGER OPERATOR Is the Patient experiencing symptoms consistent with COVID?->Yes Miko Cervantes NP LAB MICROBIOLOGY - GENERAL [facility] Final Result [facility] [address] Department [place] [address] [facility] * POCT rapid strep A (06/12/2024 6:49 PM STRAW HAT PLUNGER OPERATOR) Rapid Strep A, POC Negative Negative Swab 06/12/2024 6:49 PM STRAW HAT PLUNGER OPERATOR Miko Cervantes NP POINT OF CARE TEST ORDERABLES F inal Result * Throat culture Throat (06/12/2024 6:49 PM STRAW HAT PLUNGER OPERATOR) Report Final Report: No growth of pathogens. Comment:Testing performed by : [facility], [address] [facility], [place]., [address] Throat 06/12/2024 6:49 PM STRAW HAT PLUNGER OPERATOR 06/12/2024 11:56 PM STRAW HAT PLUNGER OPERATOR Narrative [facility] - 06/13/2024 6:45 PM STRAW HAT PLUNGER OPERATOR Testing performed by [facility]biology Laboratory ([phone]). us Miko Cervantes NP LAB MICROBIOLOGY - GENERAL NAILAMatilda [place] Final Result CONSTAN[facility] HOOPER [address] Department [place] [address] from Last 3 Months Insurance [employer] CHOICE [employer] ACCESS CHOICE Care Teams Motor Grader Operator Relationship Specialty Start Date End Date Unknown, Notinfile PCP - General 06/12/24
--- OUTSIDE RECORDS SUMMARY | 2024-08-20 06:43 | XMS_ITS | Referral Summary ---
Author Organization [facility] Address [address] [place] [id number] Care Team Providers Care Manager Of Software Development Name Role Phone Unknown, Notinfile Primary Care Provider Unavail able Encounters Date Type Department Care Team Description 07/09/2024 9:30 AM CONCIERGE RECEPTIONIST Ancillary Procedure [facility] Imaging at [address] [phone] Acute nasopharyngitis 06/12/2024 6:49 PM CONCIERGE RECEPTIONIST - 06/12/2024 11:59 PM CONCIERGE RECEPTIONIST Hospital Encounter [address] [id number] Acute nasopharyngitis Discharge Disposition: Discharge to home or self care 06/12/2024 6:15 PM CONCIERGE RECEPTIONIST Office Visit [facility] Convenient Care at [address] [phone] Miko Cervantes NP Acute nasopharyngitis (Primary Dx) [...] on file Legal Sex Female 9:20 AM CONCIERGE RECEPTIONIST Gender Identity Not on file Sexual Orientation Not on file Last Filed Vital Signs Vital Sign Reading Time Taken Comments Blood Pressure 148/86 06/12/2024 6:18 PM CONCIERGE RECEPTIONIST Pulse 89 06/12/2024 6:18 PM CONCIERGE RECEPTIONIST Temperature 37 C (98.6 F) 06/12/2024 6:18 PM CONCIERGE RECEPTIONIST Respiratory Rate 20 06/12/2024 6:18 PM CONCIERGE RECEPTIONIST Oxygen Saturation 98% 06/12/2024 6:18 PM CONCIERGE RECEPTIONIST Inhaled Oxygen Concentration - - Weight 93.4 kg (206 lb) 06/12/2024 6:18 PM CONCIERGE RECEPTIONIST Height - - Body Mass Index - - Plan of Treatment Not on file Procedures Procedure Name Priority Date/Time Associated Diagnosis Comments XR CHEST PA LATERAL 2 VIEWS Schedule TRUE, Read TRUE (Appt Today, Awaiting Results) 07/09/2024 9:07 AM CONCIERGE RECEPTIONIST Acute nasopharyngitis POC INFLUENZA A/B, COVID-19 ANTIGEN Routine 06/12/2024 6:49 PM CONCIERGE RECEPTIONIST Acute nasopharyngitis POCT RAPID STREP Routine 06/12/2024 6:49 PM CONCIERGE RECEPTIONIST Acute nasopharyngitis THROAT CULTURE Routine 06/12/2024 6:49 PM CONCIERGE RECEPTIONIST Acute nasopharyngitis INFLUENZA A/B, RSV, AND COVID-19 PCR Routine 06/12/2024 6:49 PM CONCIERGE RECEPTIONIST Acute nasopharyngitis from Last 3 Months Results * XR Chest PA Lateral 2 Views (07/09/2024 9:07 AM CONCIERGE RECEPTIONIST) Anatomical Region Laterality Modality Body, Chest N/A Digital Radiogra phy 07/09/2024 11:0 4 AM CONCIERGE RECEPTIONIST Narrative 07/09/2024 11:05 AM CONCIERGE RECEPTIONIST EXAM DESCRIPTION: XR CHEST PA LATERAL 2 [...] Arpan Cook M.D. MJ T: Report ID: [id number] Reading Location: [id number] Procedure Note Arpan Cook MD - 07/09/2024 [...] Arpan Cook M.D. MJ T: Report ID: [id number] Reading Location: [place] [address] Miko Cervantes [employer] IM[employer] XR PROCEDURES Final Result * POC Influenza A/B, COVID-19 antigen (06/12/2024 6:49 PM CONCIERGE RECEPTIONIST) Influenza A Ag, POC Negative Negative [facility] Influenza B Ag, POC Negative Negative [facility] COVID-19 Ag POC Presumptive Negative Presumptive Negative, Invalid [facility] Nasal 06/12/2024 6:49 PM CONCIERGE RECEPTIONIST Miko Cervantes NP POINT OF CARE TEST ORDERABLES F inal Result [facility] [address] [place] [address] * Influenza A/B, RSV, and COVID-19 PCR Nasopharyngeal (06/12/2024 6:49 PM CONCIERGE RECEPTIONIST) COVID-19 RNA Negative Negative Influenza A RNA Negative Negative [facility] Influenza B RNA Negative Negative [facility] RSV RNA Negative Negative [facility] Comment: Interpretive data: Testing performed by [facility]. This test is performed using the [employer]etto Xpert Xpress CoV-2/Flu/RSV plus assay. This is a multiplex, real-time reverse transcriptase PCR assay intended for the qualitative detection of nucleic acid from SARS-CoV-2, influenza A, influenza B, and respiratory syncytial virus. This assay has been cleared by the [place] Food and Drug administration. The performance characteristics have been verified by the [facility]. Results must be considered in the clinical context, and a negative result does not rule out infection. Interpretive Data last revised 2023 Nasopharyngeal 06/12/2024 6: 49 PM CONCIERGE RECEPTIONIST 06/12/2024 9:25 PM CONCIERGE RECEPTIONIST Narrative [facility] - 06/12/2024 10:07 PM CONCIERGE RECEPTIONIST Is the Patient experiencing symptoms consistent with COVID?->Yes Miko Cervantes NP LAB MICROBIOLOGY - GENERAL ORDE RABLES Final Result Performing Organization Address [facility] [employer] de Phone Number CONSTANZA HOOPER [id number] Department [place] [address] [place] * POCT rapid strep A (06/12/2024 6:49 PM CONCIERGE RECEPTIONIST) Rapid Strep A, POC Negative Negative Swab 06/12/2024 6:49 PM CONCIERGE RECEPTIONIST Miko Cervantes NP POINT OF CARE TEST ORDERABLES F inal Result * Throat culture Throat (06/12/2024 6:49 PM CONCIERGE RECEPTIONIST) Report Final Report: No growth of pathogens. Comment:Testing performed by : [facility], [address] [facility], [place]., [address] Throat 06/12/2024 6:49 PM CONCIERGE RECEPTIONIST 06/12/2024 11:56 PM CONCIERGE RECEPTIONIST Narrative [facility] - 06/13/2024 6:45 PM CONCIERGE RECEPTIONIST Testing performed by [facility] Microbiology Laboratory ([phone]). Miko Cervantes NP LAB MICROBIOLOGY - GENERAL ORDE RABLES Final Result Performing Organization Address [facility]/ZIP Co de Phone Number CONSTANZA HOOPER [phone] [address] Department [place] [address] from Last 3 Months Insurance [facility] ACCESS CHOICE ANTHEM ACCESS CHOICE Care Teams Manager Of Software Development Relationship Specialty Start Date End Date Unknown, Notinfile PCP - General 06/12/24
== END 2024-08-20 06:40 | disposition home or self-care (01) ==
PROVIDERS: PCP Family Medicine; Visit Provider Nurse Practitioner Adult Health
DX: M48.061 Spinal stenosis, lumbar region without neurogenic claudication (principal); M47.892 Other spondylosis, cervical region; M40.202 Unspecified kyphosis, cervical region; M47.896 Other spondylosis, lumbar region
CPT/HCPCS: 72141; 72148

== ENCOUNTER 2024-09-29 12:33 | Observation (INO) | payer BC, SELFPAY ==
[2024-09-29] VITALS (14 sets, daily range): BP systolic 128–165; BP diastolic 65–86; PULSE 61–86; RESP 12–20; TEMP 36.4–36.6; O2SAT 95–98; BMI 37.7
--- NOTE | ~2024-09-29 | XR_ITS ---
Portable chest x-ray Comparison: 07/12/2024 Clinical History: Right facial numbness Findings: Lungs are clear, without focal consolidation or pleural effusion. Cardiomediastinal silho uette is stable. Bones and soft tissues are unremarkable. Impression: Normal chest. Reviewed, dictated and finalized at location . Impression: Normal chest.
--- NOTE | ~2024-09-29 | CT_ITS ---
EXAMINATION: CTA BRAIN/CAROTID DATE: 09/29/2024 13:29 INDICATION: Right-sided facial numbness TECHNIQUE: Computed tomographic angiography (CTA) of the head and neck was performed with 100 mL Omni paque-350 intravenous contrast. Multiplanar reconstructions and maximum intensity projection 3D-recon structions of the carotid arteries and of the intracranial arteries were created by the technologist on a separate workstation. Precontrast CT of the head was also obtained. Automated exposure control and iterative reconstruction technique were employed.The dose-length product was 1624.92 mGy-cm. COMPARISON: None. FINDINGS: Carotid arteries: Visualized aortic arch and great vessels arising from the arch are normal in caliber with no evident atherosclerotic plaque or dissection. There is no evident atherosclerotic plaque with 0% stenosis of the right and left carotid bulbs relative to normal distal artery lumen diameter (NASCET criteria). Head: No acute intracranial hemorrhage, acute infarction or abnormal extra axial fluid collection. Ventricl es are normal and symmetric. No mass/mass effect. No abnormally enhancing brain lesions on the postco ntrast imaging. Mucosal thickening in the paranasal sinuses with small amount of dependently layering mucus in the right maxillary sinus. Mucous retention cyst in the left sphenoid sinus. The right sphe noid sinus is absent. The orbits and mastoid air cells are normal. Intracranial arteries There is no hemodynamically significant stenosis in the vertebral, basilar and internal carotid arter ies. Vertebral arteries are codominant. There are no aneurysms identified. Both A1 and P1 segments a re patent. Cerebral arterial arborization appears symmetric. IMPRESSION: 1. There is no evident atherosclerotic plaque with 0% stenosis of the right and left carotid bulbs re lative to normal distal artery lumen diameter (NASCET criteria). 2. Normal brain. No acute intracranial process. 3. Unremarkable cerebral CT angiogram with no aneurysm, thrombosis or significant stenosis. Reviewed, dictated and finalized at location B. IMPRESSION: 1. There is no evident atherosclerotic plaque with 0% stenosis of the right and left carotid bulbs relative to normal distal artery lumen diameter (NASCET cri teria). 2. Normal brain. No acute intracranial process. 3. Unremarkable cerebral CT angiogram with no aneurysm, thrombosis or significa nt stenosis.
--- NOTE | ~2024-09-29 | MR_ITS ---
EXAMINATION: MR brain/brain stem wo/w con DATE: 09/30/2024 15:25 INDICATION: Right-sided facial numbness TECHNIQUE: Magnetic resonance imaging (MRI) of the brain and brainstem was performed without and with 20 mL ProHance intravenous contrast. Sequences included sagittal and axial T1-weighted SE, axial dif fusion-weighted FS SE, axial 3D SWAN, axial T2-weighted FLAIR, and axial T2-weighted FSE. Postcontras t axial and coronal T1-weighted SE was obtained. Apparent diffusion coefficient (ADC) maps were creat ed. COMPARISON: Head CT and CT angiogram dated 09/29/2024 FINDINGS: There are no areas of restricted diffusion to suggest acute infarction. No intracranial hemorrhage or abnormal intracranial mass lesion. There are no intraparenchymal signal abnormalities seen on the ot her pulse sequences. The ventricles are symmetric and normal in size. There are no abnormal extra-axi al fluid collections. Flow voids are seen in the cerebral arteries on the T2-weighted sequences consi stent with their expected patency. Mild to moderate mucosal thickening in the paranasal sinuses. Smal l amount of dependently layering fluid/mucus in the bilateral maxillary sinuses. Very small right mas toid effusion. Visualized orbits and soft tissues are unremarkable. There are no areas of abnormal en hancement on the post contrast images. IMPRESSION: 1. Normal brain. No acute intracranial process. 2. Sinus disease. Reviewed, dictated and finalized at location B.
--- NOTE | 2024-09-29 12:36 | ECG_ITS ---
Test Date: 2024-09-29 12:45:35 Measurements Intervals [place] Rate: 74 P: 13 WV: 136 QRS: 11 QRSD: 88 T: 31 QT: 378 QTc: 422 Interpretive Statements SINUS RHYTHM POSSIBLE ANTERIOR MYOCARDIAL INFARCTION , PROBABLY OLD ABNORMAL ECG No previous ECG available for comparison Electronically Signed On 09-29-2024 12:51:02 CDT by Moe Lazo D.O.
[2024-09-29 12:43] LABS: Glucose Point of Care 90 mg/dl (65-105)
--- NOTE | 2024-09-29 12:53 | ED_ITS ---
HPI - Neuro Symptoms/Deficit General Chief Complaint: Neuro Symptoms/Deficit Stated Complaint: right facial numbness x 2 hours Time Seen by Provider: 09/29/24 12:39 Focused HPI: Patient is a 53-year-old female who presents to the ER with right facial numbness. She reports her symptoms started ?a few hours ago around 8:30 a.m. this morning. Patient also endorses a slight headache for which she took Tylenol. She endorses a history of high blood pressure, diabetes, asthma, and recent falls. Patient has numbness and tingling in all her extremities at baseline. She denies any chest pain, shortness of breath, recent fevers. GENERAL: Well-appearing, well-nourished, and in no acute distress. HEAD: Normocephalic, atraumatic. CHEST: Clear to auscultation. ?No respiratory distress. HEART: Regular rate and rhythm.? NEURO: ?Alert and oriented x3. Patient screened in triage and initial orders placed.? ?Additional care and disposition to be based upon?diagnostic testing and treatment. Related Data Home Medications ?Medication ?Instructions ?Recorded ?Confirmed ?Last Taken ?Type cetirizine 10 mg capsule (Zyrtec) 10 mg PO DAILY PRN Allergy Symptoms 06/24/23 08/27/24 Unknown History ergocalciferol (vitamin D2) 1,250 1,250 mcg PO WEEKLY 06/24/23 08/27/24 Unknown History mcg (50,000 unit) capsule fluticasone propionate 50 1 spray intranasal .PRN 06/24/23 08/27/24 Unknown History mcg/actuation nasal spray,suspension (Allergy Relief (fluticasone)) B6 35 mg-B9 3 mg-B12 2 mg-D3 62.5 cap PO 10/09/23 08/27/24 Unknown History mcg-ALA 300 mg capsule,delay release (EB-N5 ) terbinafine HCl 250 mg tablet 250 mg PO DAILY 10/09/23 08/27/24 Unknown History cyclobenzaprine 10 mg tablet 10 mg PO TID 10/31/23 08/27/24 Unknown History Allergies Allergy/AdvReac Type Severity Reaction Status Date / Time celecoxib (From Celebrex) Allergy Mild Unknown Verified 09/29/24 15:07 diphenhydramine (From Allergy Mild Unknown Verified 09/29/24 15:07 Benadryl) meloxicam (From Mobic) Allergy Mild Hives Verified 09/29/24 15:07 moxifloxacin (From Avelox) Allergy Mild Unknown Verified 09/29/24 15:07 sulfur dioxide Allergy Mild Unknown Verified 09/29/24 15:07 Penicillins Allergy Hives Verified 09/29/24 15:07 [facility] Past Medical History Medical History Vitamin B12 deficiency Migraines Asthma GERD (gastroesophageal reflux disease) Depression Osteoarthritis Fibromyalgia Diabetic neuropathy CORTEZ (obstructive sleep apnea) HLD (hyperlipidemia) HTN (hypertension) Diabetes Surgical History Surgical History Hx of foot surgery History of endometrial ablation History of tubal ligation Family History Family History Father Asthma Carcinoma of colon Hypertension Mother Hypertension Cerebrovascular accident Social History Social History Smoking packs per day: 0.5 Smoking cigarettes per day: 10.0 Years smoked: 25 Smoking pack-years: 12.50 Smoking status: Current every day smoker Tobacco type: cigarettes Alcohol intake: never Substance use: never Substance use type: does not use Do You Feel Safe in your Home?: Yes Lack of Transportation: No Lack of Food: Never True Current Housing: I Have Housing Concerned About Future Housing: No Difficulty Paying Gas/Electric Bills: No Difficulty Paying for Meds: No Currently Unemployed: No Education: Don't Know Difficulty w/ Childcare or Family Care: No Living arrangements: with family Occupation/Education: occupation Gender identity (if verbalized by the patient): Female Sexual Orientation (if Verbalized by the Patient): Straight or Heterosexual Spiritual care concerns: No Course Vital Signs Vital signs: Vital Signs Temperature 36.4 C 09/29/24 13:19 Pulse Rate 76 09/29/24 13:19 Respiratory Rate 20 09/29/24 13:19 Blood Pressure 152/80 H 09/29/24 13:19 Pulse Oximetry 97 09/29/24 13:19 Oxygen Delivery Room Air 09/29/24 13:19 Temperature 36.4 C 09/29/24 13:19 Pulse Rate 67 09/29/24 15:06 Respiratory Rate 13 09/29/24 15:05 Blood Pressure 128/72 09/29/24 15:05 Pulse Oximetry 97 09/29/24 15:05 Oxygen Delivery Room Air 09/29/24 13:19 MDM - Neuro Symptoms/Deficit Lab Data 09/29/24 12:50 09/29/24 12:50 Labs: Lab Results 09/29/24 09/29/24 Range/Units 12:40 12:50 WBC 8.8 (4.5-10.0) K/mm3 RBC 4.38 (4.2-5.4) M/mm3 Hgb 13.6 (12.0-15.0) g/dL Hct 42.1 (37.0-47.0) % MCV 96.1 (80-100) fl MCH 31.1 (26-34) pg MCHC 32.3 (32-36) g/dl RDW 13.1 (11.5-14.5) % Plt Count 197 (150-375) k/mm3 MPV 9.8 (7.4-10.4) fl Immature Gran % (Auto) 0.3 (0-0.5) % Neut % (Auto) 66.7 (45.5-73.1) % Lymph % (Auto) 26.1 (18.3-44.2) % [place] % (Auto) 5.3 (2.6-8.5) % Eos % (Auto) 1.4 (0-4.4) % Baso % (Auto) 0.2 (0.2-1.2) % Lymph # (Auto) 2.30 (0.9-3.2) K/mm3 [place] # (Auto) 0.5 (0.1-0.6) K/mm3 Eos # (Auto) 0.1 (0-0.3) K/mm3 Baso # (Auto) 0.0 (0.0-0.1) K/mm3 Abs Immat Gran (auto) 0.03 (0.00-0.031) K/mm3 Absolute Neuts (auto) 5.9 (1.3-6.7) K/mm3 Absolute Nucleated RBC 0.000 (0.0-0.012) K/mm3 Nucleated RBC % 0.0 (0.0-0.2) % PT 12.8 (11.1-14.7) Seconds INR 0.9 APTT 29.3 (22.3-36.8) Seconds Sodium 138 (137-145) mmol/L Potassium 3.7 (3.4-5.0) mmol/L Chloride 104 (98-107) mmol/L Carbon Dioxide 27 (22-30) mmol/L Anion Gap 7 (4-12) mmol/L BUN 13 (7-17) mg/dL Creatinine 0.57 L (0.7-1.0) mg/dL Estim Creat Clear Calc Not Reportable Estimated GFR > 60 (59 - ) Glucose 78 (65-110) mg/dL POC Capillary Glucose 90 (65-105) mg/dl Calcium 8.8 (8.4-10.2) mg/dL Total Bilirubin 0.5 (0.2-1.3) mg/dL AST 26 (14-36) U/L ALT 26 (6-35) U/L Alkaline Phosphatase 83 (38-126) U/L Troponin I < 0.012 (0.000-0.034) ng/mL Total Protein 7.0 (6.3-8.2) g/dL Albumin 4.3 (3.5-5.1) g/dL Discharge Plan Discharge Clinical Impression: Numbness and tingling of right side of face Patient Disposition: Still a Patient Condition: Stable Time of Disposition: 14:53
[2024-09-29 13:00] LABS: Basophils Percent Auto 0.2 % (0.2-1.2); Eosinophils Absolute Auto 0.1 K/mm3 (0-0.3); Eosinophils Percent Auto 1.4 % (0-4.4); Hematocrit 42.1 % (37.0-47.0); Hemoglobin 13.6 g/dL (12.0-15.0); Immature Granulocyte Absolute 0.03 K/mm3 (0.00-0.031); Immature Granulocyte Percent A 0.3 % (0-0.5); Lymphocytes Percent Auto 26.1 % (18.3-44.2); Mean Corpuscular HGB Conc 32.3 g/dl (32-36); Mean Corpuscular Hemoglobin 31.1 pg (26-34); Mean Corpuscular Volume 96.1 fl (80-100); Mean Platelet Volume 9.8 fl (7.4-10.4); Monocytes Absolute Auto 0.5 K/mm3 (0.1-0.6); Monocytes Percent Auto 5.3 % (2.6-8.5); Neutrophils Absolute Auto 5.9 K/mm3 (1.3-6.7); Neutrophils Percent Auto 66.7 % (45.5-73.1); Platelet Count Result 197 k/mm3 (150-375); Red Blood Count 4.38 M/mm3 (4.2-5.4); Red Cell Distribution Width 13.1 % (11.5-14.5); White Blood Count 8.8 K/mm3 (4.5-10.0)
[2024-09-29 13:08] LABS: Alanine Aminotransferase 26 U/L (6-35); Albumin Level 4.3 g/dL (3.5-5.1); Alkaline Phosphatase 83 U/L (38-126); Anion Gap 7 mmol/L (4-12); Aspartate Amino Transferase 26 U/L (14-36); Bilirubin,Total 0.5 mg/dL (0.2-1.3); Blood Urea Nitrogen 13 mg/dL (7-17); Calcium 8.8 mg/dL (8.4-10.2); Carbon Dioxide 27 mmol/L (22-30); Chloride 104 mmol/L (98-107); Estimated Glomerular Filt Rate > 60; Glucose 78 mg/dL (65-110); Potassium 3.7 mmol/L (3.4-5.0); Sodium 138 mmol/L (137-145)
[2024-09-29 13:19] LABS: Troponin I < 0.012 ng/mL (0.000-0.034)
[2024-09-29 13:20] LABS: INR 0.9; Partial Thromboplastin Time 29.3 Seconds (22.3-36.8); Prothrombin Time 12.8 Seconds (11.1-14.7)
--- NOTE | 2024-09-29 13:23 | ED_ITS ---
HPI - General Adult General Chief complaint: Neuro Symptoms/Deficit Stated complaint: right facial numbness x 2 hours Time Seen by Provider: 09/29/24 12:39 History of Present Illness HPI narrative: Patient is 3-year-old female presents emergency department with chief complaint of right-sided facial numbness. Patient reports that her last known well was approximately 830 this morning. Patient states that she had numbness isolated to the right side of her face reports no facial droop denies weakness in her arms or legs reports no numbness or tingling in her arms or legs Related Data Home Medications ?Medication ?Instructions ?Recorded ?Confirmed ?Last Taken ?Type cetirizine 10 mg capsule (Zyrtec) 10 mg PO DAILY PRN Allergy Symptoms 06/24/23 08/27/24 Unknown History ergocalciferol (vitamin D2) 1,250 1,250 mcg PO WEEKLY 06/24/23 08/27/24 Unknown History mcg (50,000 unit) capsule fluticasone propionate 50 1 spray intranasal .PRN 06/24/23 08/27/24 Unknown History mcg/actuation nasal spray,suspension (Allergy Relief (fluticasone)) B6 35 mg-B9 3 mg-B12 2 mg-D3 62.5 cap PO 10/09/23 08/27/24 Unknown History mcg-ALA 300 mg capsule,delay release (EB-N5 ) terbinafine HCl 250 mg tablet 250 mg PO DAILY 10/09/23 08/27/24 Unknown History cyclobenzaprine 10 mg tablet 10 mg PO TID 10/31/23 08/27/24 Unknown History Allergies Allergy/AdvReac Type Severity Reaction Status Date / Time celecoxib (From Celebrex) Allergy Mild Unknown Verified 08/27/24 07:57 diphenhydramine (From Allergy Mild Unknown Verified 08/27/24 07:57 Benadryl) meloxicam (From Mobic) Allergy Mild Hives Verified 08/27/24 07:57 moxifloxacin (From Avelox) Allergy Mild Unknown Verified 08/27/24 07:57 sulfur dioxide Allergy Mild Unknown Verified 08/27/24 07:57 Penicillins Allergy Hives Verified 08/27/24 07:57 Review of Systems 2 Review of Systems: A 10 system review of systems was completed on the patient and is negative except for what is stated in the HPI. Nursing and ancillary documentation was reviewed. PMFSH Past Medical History Medical History Vitamin B12 deficiency Migraines Asthma GERD (gastroesophageal reflux disease) Depression Osteoarthritis Fibromyalgia Diabetic neuropathy CORTEZ (obstructive sleep apnea) HLD (hyperlipidemia) HTN (hypertension) Diabetes Surgical History Surgical History Hx of foot surgery History of endometrial ablation History of tubal ligation Family History Family History Father Asthma Carcinoma of colon Hypertension Mother Hypertension Cerebrovascular accident Social History Social History Smoking packs per day: 0.5 Smoking cigarettes per day: 10.0 Years smoked: 25 Smoking pack-years: 12.50 Smoking status: Current every day smoker Tobacco type: cigarettes Alcohol intake: never Substance use: never Substance use type: does not use Do You Feel Safe in your Home?: Yes Lack of Transportation: No Lack of Food: Never True Current Housing: I Have Housing Concerned About Future Housing: No Difficulty Paying Gas/Electric Bills: No Difficulty Paying for Meds: No Currently Unemployed: No Education: Don't Know Difficulty w/ Childcare or Family Care: No Living arrangements: with family Occupation/Education: occupation Gender identity (if verbalized by the patient): Female Sexual Orientation (if Verbalized by the Patient): Straight or Heterosexual Spiritual care concerns: No Exam 2 Narrative: GENERAL: Well-appearing, well-nourished, and in no acute distress. HEAD: Normocephalic, atraumatic. EYES: PERRLA and EOMI. ENT: Nares clear, no rhinorrhea or epistaxis. Mucous membranes moist. NECK: Supple. CHEST: Clear to auscultation. No respiratory distress. HEART: Regular rate and rhythm. No murmur heard. Normal peripheral pulses. ABDOMEN: Soft, nontender, nondistended, normal active bowel sounds. EXTREMITIES: Normal range of motion. No edema. SKIN: Warm, dry, no rash. NEURO: No focal deficits slight decreased sensation right side of face, no facial droop good strength in all extremities. Alert and oriented x3. PSYCH: Normal mood and affect. Course Vital Signs Vital signs: Vital Signs Temperature 36.4 C 09/29/24 13:19 Pulse Rate 76 09/29/24 13:19 Respiratory Rate 20 09/29/24 13:19 Blood Pressure 152/80 H 09/29/24 13:19 Pulse Oximetry 97 09/29/24 13:19 Oxygen Delivery Room Air 09/29/24 13:19 Temperature 36.4 C 09/29/24 13:19 Pulse Rate 76 09/29/24 13:19 Respiratory Rate 20 09/29/24 13:19 Blood Pressure 152/80 H 09/29/24 13:19 Pulse Oximetry 97 09/29/24 13:19 Oxygen Delivery Room Air 09/29/24 13:19 Medical Decision Making MDM Narrative Medical decision making narrative: Differential diagnosis includes CVA, peripheral nerve CT head was negative CTA neck showed no large vessel occlusion. Blood sugar was within normal limits EKG showed no acute ischemic changes Case was discussed with Neurology and the patient will be admitted for observation MRI Vital Signs Vital Signs: Vital Signs Temperature 36.4 C 09/29/24 13:19 Pulse Rate 76 09/29/24 13:19 Respiratory Rate 20 09/29/24 13:19 Blood Pressure 152/80 H 09/29/24 13:19 Pulse Oximetry 97 09/29/24 13:19 Oxygen Delivery Room Air 09/29/24 13:19 Temperature 36.4 C 09/29/24 13:19 Pulse Rate 76 09/29/24 13:19 Respiratory Rate 20 09/29/24 13:19 Blood Pressure 152/80 H 09/29/24 13:19 Pulse Oximetry 97 09/29/24 13:19 Oxygen Delivery Room Air 09/29/24 13:19 Lab Data 09/29/24 12:50 09/29/24 12:50 Labs: Lab Results 09/29/24 09/29/24 Range/Units 12:40 12:50 WBC 8.8 (4.5-10.0) K/mm3 RBC 4.38 (4.2-5.4) M/mm3 Hgb 13.6 (12.0-15.0) g/dL Hct 42.1 (37.0-47.0) % MCV 96.1 (80-100) fl MCH 31.1 (26-34) pg MCHC 32.3 (32-36) g/dl RDW 13.1 (11.5-14.5) % Plt Count 197 (150-375) k/mm3 MPV 9.8 (7.4-10.4) fl Immature Gran % (Auto) 0.3 (0-0.5) % Neut % (Auto) 66.7 (45.5-73.1) % Lymph % (Auto) 26.1 (18.3-44.2) % [place] % (Auto) 5.3 (2.6-8.5) % Eos % (Auto) 1.4 (0-4.4) % Baso % (Auto) 0.2 (0.2-1.2) % Lymph # (Auto) 2.30 (0.9-3.2) K/mm3 [place] # (Auto) 0.5 (0.1-0.6) K/mm3 Eos # (Auto) 0.1 (0-0.3) K/mm3 Baso # (Auto) 0.0 (0.0-0.1) K/mm3 Abs Immat Gran (auto) 0.03 (0.00-0.031) K/mm3 Absolute Neuts (auto) 5.9 (1.3-6.7) K/mm3 Absolute Nucleated RBC 0.000 (0.0-0.012) K/mm3 Nucleated RBC % 0.0 (0.0-0.2) % PT 12.8 (11.1-14.7) Seconds INR 0.9 APTT 29.3 (22.3-36.8) Seconds Sodium 138 (137-145) mmol/L Potassium 3.7 (3.4-5.0) mmol/L Chloride 104 (98-107) mmol/L Carbon Dioxide 27 (22-30) mmol/L Anion Gap 7 (4-12) mmol/L BUN 13 (7-17) mg/dL Creatinine 0.57 L (0.7-1.0) mg/dL Estim Creat Clear Calc Not Reportable Estimated GFR > 60 (59 - ) Glucose 78 (65-110) mg/dL POC Capillary Glucose 90 (65-105) mg/dl Calcium 8.8 (8.4-10.2) mg/dL Total Bilirubin 0.5 (0.2-1.3) mg/dL AST 26 (14-36) U/L ALT 26 (6-35) U/L Alkaline Phosphatase 83 (38-126) U/L Troponin I < 0.012 (0.000-0.034) ng/mL Total Protein 7.0 (6.3-8.2) g/dL Albumin 4.3 (3.5-5.1) g/dL Discharge Plan Discharge Clinical Impression: Numbness and tingling of right side of face Patient Disposition: Still a Patient Condition: Stable Patient Language: Amharic Prescriptions: No Action terbinafine HCl 250 mg tablet 250 mg PO DAILY EB-N5 DR 35 mg-3 mg- 2 mg-62.5 mcg capsule,delayed release(DR/EC) PO dicyclomine 10 mg capsule 10 mg PO TID PRN (Reason: abdominal pain) Qty: 90 2RF budesonide-formoterol [Symbicort] 160-4.5 mcg/actuation HFA aerosol inhaler 2 puff inhalation Q12H Qty: 10.2 3RF insulin lispro [Humalog KwikPen Insulin] 100 unit/mL insulin pen 8 unit subcut TID Qty: 15 0RF fluticasone propionate [Allergy Relief (fluticasone)] 50 mcg/actuation spray,suspension 1 spray intranasal .PRN Rx Instructions: administer into each nostril ergocalciferol (vitamin D2) 1,250 mcg (50,000 unit) capsule 1,250 mcg PO WEEKLY Zyrtec 10 mg capsule 10 mg PO DAILY PRN (Reason: Allergy Symptoms) dulaglutide 1.5 mg/0.5 mL pen injector 1.5 mg subcut WEEKLY Qty: 2 0RF lisinopril 20 mg tablet 20 mg PO BID Qty: 180 2RF cyclobenzaprine 10 mg tablet 10 mg PO TID insulin glargine U-300 conc [Toujeo Max U-300 SoloStar] 300 unit/mL (3 mL) insulin pen 50 unit subcut DAILY Qty: 6 5RF rizatriptan 10 mg tablet See Rx Instructions .ROUTE .COMPLEX Qty: 10 5RF Rx Instructions: one po prn migraine, may repeat once after 2 hrs; duloxetine [Cymbalta] 60 mg capsule,delayed release(DR/EC) 60 mg PO DAILY Qty: 90 1RF ezetimibe 10 mg tablet See Rx Instructions .ROUTE .COMPLEX Qty: 90 1RF Dose Instruction: TAKE 1 TABLET BY MOUTH DAILY Rx Instructions: TAKE 1 TABLET BY MOUTH DAILY albuterol sulfate 90 mcg/actuation HFA aerosol inhaler 1 puff inhalation QID Qty: 6.7 2RF (DME) pen needle, diabetic [BD Ultra-Fine Short Pen Needle] 31 gauge x 5/16 needle See Rx Instructions .Route Qty: 400 3RF Rx Instructions: injection qac and qhs nabumetone 750 mg tablet 750 mg PO BID Qty: 60 1RF omeprazole 40 mg capsule,delayed release(DR/EC) See Rx Instructions .ROUTE .COMPLEX Qty: 60 6RF Dose Instruction: TAKE 1 CAPSULE BY MOUTH TWICE DAILY Rx Instructions: TAKE 1 CAPSULE BY MOUTH TWICE DAILY montelukast [Singulair] 10 mg tablet 10 mg PO DAILY Qty: 90 1RF gabapentin 400 mg capsule See Rx Instructions .ROUTE .COMPLEX Qty: 270 2RF Dose Instruction: TAKE 1 CAPSULE BY MOUTH THREE TIMES DAILY Rx Instructions: TAKE 1 CAPSULE BY MOUTH THREE TIMES DAILY metoclopramide HCl [Reglan] 10 mg tablet 10 mg PO .AM and HS Qty: 60 6RF ondansetron 4 mg tablet,disintegrating See Rx Instructions .ROUTE .COMPLEX Qty: 10 2RF Dose Instruction: DISSOLVE 1 TABLET ON THE TONGUE EVERY 8 HOURS NEEDED FOR NAUSEA OR VOMITING Rx Instructions: DISSOLVE 1 TABLET ON THE TONGUE EVERY 8 HOURS NEEDED FOR NAUSEA OR VOMITING Zenpep 60,000-189,600- 252,600 unit capsule,delayed release(DR/EC) See Rx Instructions .ROUTE .COMPLEX Qty: 300 12RF Dose Instruction: TAKE 1 CAPSULE BY MOUTH WITH MEALS AND SNACKS Rx Instructions: TAKE 1 CAPSULE BY MOUTH WITH MEALS AND SNACKS Follow-up/Referrals: Lalit Hammonds MD [Primary Care Provider] - Time of Disposition: 14:53 Quality Stroke Date of last known normal: 09/29/24 Time of last known normal: 08:30
--- OUTSIDE RECORDS SUMMARY | 2024-09-29 13:27 | XMS_ITS | Clinical Summary ---
Author Organization [facility] Address [address] [place] [id number] Care Team Providers Care Rotary Cutter Name Role Phone Unknown, Notinfile Primary Care [...] Department Care Team Description 07/09/2024 9:30 AM CARDIAC CATH RN Ancillary Procedure [facility] Medical Group Imaging at [address] [phone] Acute nasopharyngitis from Last 3 Months Social History Tobacco Use Types Packs/Day Years Used Date Smoking Tobacco: Never Assessed Comments Unknown Sex and Gender Information Value Date Recorded Sex Assigned at Not on file Legal Sex Female 9:20 AM CARDIAC CATH RN Gender Identity Not on file Sexual Orientation Not on file Last Filed Vital Signs Vital Sign Reading Time Taken Comments Blood Pressure 148/86 06/12/2024 6:18 PM CARDIAC CATH RN Pulse 89 06/12/2024 6:18 PM CARDIAC CATH RN Temperature 37 C (98.6 F) 06/12/2024 6:18 PM CARDIAC CATH RN Respiratory Rate 20 06/12/2024 6:18 PM CARDIAC CATH RN Oxygen Saturation 98% 06/12/2024 6:18 PM CARDIAC CATH RN Inhaled Oxygen Concentration - - Weight 93.4 kg (206 lb) 06/12/2024 6:18 PM CARDIAC CATH RN Height - - Body Mass Index - [...] (Appt Today, Awaiting Results) 07/09/2024 9:07 AM CARDIAC CATH RN Acute nasopharyngitis from Last 3 Months Results * XR Chest PA Lateral 2 Views (07/09/2024 9:07 AM CARDIAC CATH RN) Anatomical Region Laterality Modality Body, Chest N/A Digital Radiogra phy 07/09/2024 11:0 4 AM CARDIAC CATH RN Narrative 07/09/2024 11:05 AM CARDIAC CATH RN EXAM DESCRIPTION: XR CHEST PA LATERAL 2 [...] signed by Arpan FOX T: Report ID: [id number] Reading Location: [id number] Procedure Note Arpan Cook MD - 07/09/2024 [...] signed by Arpan FOX T: Report ID: [id number] Reading Location: [id number] Miko Cervantes ACCOUNTING RECRUITER IMG XR PROCEDURES Final Result from Last 3 Months Insurance ANTHEM ACCESS CHOICE ANTHEM ACCESS CHOICE Care Teams Rotary Cutter Relationship Specialty Start Date End Date Unknown, Notinfile PCP - General 06/12/24
--- OUTSIDE RECORDS SUMMARY | 2024-09-29 13:27 | XMS_ITS | Referral Summary ---
Author Organization [facility] Address [address] [place] [phone] Care Team Providers Care Marine Structural Designer Name Role Phone Unknown, Notinfile Primary Care Provider Unavail able Encounters Date Type Department Care Team Description 07/09/2024 9:30 AM WHIZZER HAND Ancillary Procedure [facility] Medical Group Imaging at [address] [phone] Acute nasopharyngitis from Last 3 Months Allergies Active Allergy [...] on file Legal Sex Female 9:20 AM WHIZZER HAND Gender Identity Not on file Sexual Orientation Not on file Last Filed Vital Signs Vital Sign Reading Time Taken Comments Blood Pressure 148/86 06/12/2024 6:18 PM WHIZZER HAND Pulse 89 06/12/2024 6:18 PM WHIZZER HAND Temperature 37 C (98.6 F) 06/12/2024 6:18 PM WHIZZER HAND Respiratory Rate 20 06/12/2024 6:18 PM WHIZZER HAND Oxygen Saturation 98% 06/12/2024 6:18 PM WHIZZER HAND Inhaled Oxygen Concentration - - Weight 93.4 kg (206 lb) 06/12/2024 6:18 PM WHIZZER HAND Height - - Body Mass Index - - Plan of Treatment Not on file Procedures Procedure Name Priority Date/Time Associated Diagnosis Comments XR CHEST PA LATERAL 2 VIEWS Schedule TRUE, Read TRUE (Appt Today, Awaiting Results) 07/09/2024 9:07 AM WHIZZER HAND Acute nasopharyngitis from Last 3 Months Results * XR Chest PA Lateral 2 Views (07/09/2024 9:07 AM WHIZZER HAND) Anatomical Region Laterality Modality Body, Chest N/A Digital Radiogra phy 07/09/2024 11:0 4 AM WHIZZER HAND Narrative 07/09/2024 11:05 AM WHIZZER HAND EXAM DESCRIPTION: XR CHEST PA LATERAL 2 [...] signed by Arpan FOX T: Report ID: [id number] Reading Location: [id number] Procedure Note Arpan Cook MD - 07/09/2024 [...] signed by Arpan FOX T: Report ID: [id number] Reading Location: [place] [address] Miko Cervantes NP IM XR PROCEDURES Final Result from Last 3 Months Insurance [facility] [employer] CHOICE ANTHEM ACCESS CHOICE Care Teams Marine Structural Designer Relationship Specialty Start Date End Date Unknown, Notinfile PCP - General 06/12/24
--- OUTSIDE RECORDS SUMMARY | 2024-09-29 14:10 | XMS_ITS | Referral Summary ---
Author Organization [facility] Address [address] [place] [phone] Care Team Providers Care Residential Caregiver Name Role Phone Unknown, Notinfile Primary Care Provider Unavail able Encounters Date Type Department Care Team Description 07/09/2024 9:30 AM DIP STAND LOADER Ancillary Procedure [facility] Medical Group Imaging at [address] [phone] Acute nasopharyngitis from Last 3 [...] on file Legal Sex Female 9:20 AM DIP STAND LOADER Gender Identity Not on file Sexual Orientation Not on file Last Filed Vital Signs Vital Sign Reading Time Taken Comments Blood Pressure 148/86 06/12/2024 6:18 PM DIP STAND LOADER Pulse 89 06/12/2024 6:18 PM DIP STAND LOADER Temperature 37 C (98.6 F) 06/12/2024 6:18 PM DIP STAND LOADER Respiratory Rate 20 06/12/2024 6:18 PM DIP STAND LOADER Oxygen Saturation 98% 06/12/2024 6:18 PM DIP STAND LOADER Inhaled Oxygen Concentration - - Weight 93.4 kg (206 lb) 06/12/2024 6:18 PM DIP STAND LOADER Height - - Body Mass Index - - Plan of Treatment Not on file Procedures Procedure Name Priority Date/Time Associated Diagnosis Comments XR CHEST PA LATERAL 2 VIEWS Schedule TRUE, Read TRUE (Appt Today, Awaiting Results) 07/09/2024 9:07 AM DIP STAND LOADER Acute nasopharyngitis from Last 3 Months Results * XR Chest PA Lateral 2 Views (07/09/2024 9:07 AM DIP STAND LOADER) Anatomical Region Laterality Modality Body, Chest N/A Digital Radiogra phy 07/09/2024 11:0 4 AM DIP STAND LOADER Narrative 07/09/2024 11:05 AM DIP STAND LOADER EXAM DESCRIPTION: XR CHEST PA LATERAL 2 [...] signed by Arpan FOX T: Report ID: [id number] Reading Location: [id number] Procedure Note Arpan Cook MD - 07/09/2024 [...] signed by Arpan FOX T: Report ID: [id number] Reading Location: [place] [address] Miko Cervantes NP IM XR PROCEDURES Final Result from Last 3 Months Insurance [facility] [employer] CHOICE ANTHEM ACCESS CHOICE Care Teams Residential Caregiver Relationship Specialty Start Date End Date Unknown, Notinfile PCP - General 06/12/24
--- OUTSIDE RECORDS SUMMARY | 2024-09-29 14:10 | XMS_ITS | Clinical Summary ---
Author Organization [facility] Address [address] [place] [phone] Care Team Providers Care Clerical Stock Inspector Name Role Phone Unknown, Notinfile Primary Care [...] Department Care Team Description 07/09/2024 9:30 AM PROJECT ASSOCIATE Ancillary Procedure [facility] Medical Group Imaging at [address] [phone] Acute nasopharyngitis from Last 3 Months Social History Tobacco Use Types Packs/Day Years Used Date Smoking Tobacco: Never Assessed Comments Unknown Sex and Gender Information Value Date Recorded Sex Assigned at Not on file Legal Sex Female 9:20 AM PROJECT ASSOCIATE Gender Identity Not on file Sexual Orientation Not on file Last Filed Vital Signs Vital Sign Reading Time Taken Comments Blood Pressure 148/86 06/12/2024 6:18 PM PROJECT ASSOCIATE Pulse 89 06/12/2024 6:18 PM PROJECT ASSOCIATE Temperature 37 C (98.6 F) 06/12/2024 6:18 PM PROJECT ASSOCIATE Respiratory Rate 20 06/12/2024 6:18 PM PROJECT ASSOCIATE Oxygen Saturation 98% 06/12/2024 6:18 PM PROJECT ASSOCIATE Inhaled Oxygen Concentration - - Weight 93.4 kg (206 lb) 06/12/2024 6:18 PM PROJECT ASSOCIATE Height - - Body Mass Index - [...] (Appt Today, Awaiting Results) 07/09/2024 9:07 AM PROJECT ASSOCIATE Acute nasopharyngitis from Last 3 Months Results * XR Chest PA Lateral 2 Views (07/09/2024 9:07 AM PROJECT ASSOCIATE) Anatomical Region Laterality Modality Body, Chest N/A Digital Radiogra phy 07/09/2024 11:0 4 AM PROJECT ASSOCIATE Narrative 07/09/2024 11:05 AM PROJECT ASSOCIATE EXAM DESCRIPTION: XR CHEST PA LATERAL 2 [...] signed by Arpan FOX T: Report ID: [id number] Reading Location: [id number] Procedure Note Arpan Cook MD - 07/09/2024 [...] signed by Arpan FOX T: Report ID: [id number] Reading Location: [id number] us Miko Cervantes BULB GROWER IMG XR PROCEDURES Final Result from Last 3 Months Insurance ANTHEM ACCESS CHOICE ANTHEM ACCESS CHOICE Care Teams Clerical Stock Inspector Relationship Specialty Start Date End Date Unknown, Notinfile PCP - General 06/12/24
--- NOTE | 2024-09-29 15:09 | PM.IMHP ---
H&P: HPI History of Present Illness Date/Time: 09/29/24 15:09 Chief Complaint: Facial Numbness Narrative: 53 y/o F with PMH of migraines, asthma, GERD, depression, osteoarthritis, fibromyalgia, neuropathy, CORTEZ (not on CPAP, seeing pulm), HLD, HTN, and diabetes presents here with facial numbness and intermittent upper extremity weakness. The patient presents here from home on 09/29/2024 for further evaluation of numbness to the right side of her face and weakness to her right upper extremity. She reports her last known well as 8:30 a.m. on 09/29/2024. She developed/discovered the right facial numbness at 8:30 - 9 a.m. This was accompanied by intermittent weakness to her RUE - had a fall back in Jun and has had intermittent paraesthesias and has been experiencing this so she is unsure if today's symptoms to RUE are new as they are similar to what she has been experiencing. She denies difficulty swallowing, vision changes, focal numbness, focal weakness, speech changes, changes in balances, or dizziness. She has no previous history of stroke. History of migraines - reports typical migraines are occasionally cluster in nature and sometimes will have black or white floaters, no headache. Initial VS at presentation: 97.6? F, HR 76, R 20, 152/80, and 97% on RA. ED workup showed: No leukocytosis, no anemia, normal coags, no significant electrolyte derangements, creatinine 0.57 and GFR >60, initial troponin negative. CXR showed normal chest. Head/neck CTA showed no evidence of atherosclerotic plaque with 0% stenosis of the right/left carotid bulbs, normal brain, no acute intracranial process, unremarkable cerebral CT angiogram with no aneurysm/thrombosis/significant stenosis. EKG showed sinus rhythm, rate 74, possible anterior NE of probably old. Review of Systems Review of Systems: All systems reviewed & are unremarkable except as noted in HPI and below [facility] Past Medical History Medical History Vitamin B12 deficiency Migraines Asthma GERD (gastroesophageal reflux disease) Depression Osteoarthritis Fibromyalgia Diabetic neuropathy CORTEZ (obstructive sleep apnea) HLD (hyperlipidemia) HTN (hypertension) Diabetes Surgical History Surgical History Hx of foot surgery History of endometrial ablation History of tubal ligation Family History Family History Father Asthma Carcinoma of colon Hypertension Mother Hypertension Cerebrovascular accident Social History Social History Smoking packs per day: 0.5 Smoking cigarettes per day: 10.0 Years smoked: 25 Smoking pack-years: 12.50 Smoking status: Current every day smoker Alcohol intake: never Substance use: never Substance use type: does not use Do You Feel Safe in your Home?: Yes Lack of Transportation: No Lack of Food: Never True Current Housing: I Have Housing Concerned About Future Housing: No Difficulty Paying Gas/Electric Bills: No Difficulty Paying for Meds: No Currently Unemployed: No Education: Don't Know Difficulty w/ Childcare or Family Care: No Living arrangements: with family Occupation/Education: occupation Gender identity (if verbalized by the patient): Female Sexual Orientation (if Verbalized by the Patient): Straight or Heterosexual Spiritual care concerns: No Meds Home Medications and Allergies Home Medications ?Medication ?Instructions ?Recorded ?Confirmed ?Type cetirizine 10 mg capsule (Zyrtec) 10 mg PO DAILY PRN Allergy Symptoms 06/24/23 09/29/24 History ergocalciferol (vitamin D2) 1,250 1,250 mcg PO WEEKLY 06/24/23 09/29/24 History mcg (50,000 unit) capsule fluticasone propionate 50 1 spray intranasal .PRN 06/24/23 09/29/24 History mcg/actuation nasal spray,suspension (Allergy Relief (fluticasone)) B6 35 mg-B9 3 mg-B12 2 mg-D3 62.5 cap PO 10/09/23 08/27/24 History mcg-ALA 300 mg capsule,delay release (EB-N5 DR) dicyclomine 10 mg capsule 10 mg PO TID PRN abdominal pain 10/09/23 09/29/24 Rx #90 caps cyclobenzaprine 10 mg tablet 10 mg PO TID PRN muscle spasm 10/31/23 09/29/24 History rizatriptan 10 mg tablet See Rx Instructions .Route 05/21/24 09/29/24 Rx .COMPLEX #10 tabs ezetimibe 10 mg tablet See Rx Instructions .Route 07/13/24 09/29/24 Rx .COMPLEX #90 tabs pen needle, diabetic 31 gauge x #400 ea 07/15/24 09/29/24 Rx 5/16 (BD Ultra-Fine Short Pen Needle) budesonide-formoterol HFA 160 2 puff inhalation Q12H #10.2 grams 07/30/24 09/29/24 Rx mcg-4.5 mcg/actuation aerosol inhaler (Symbicort) insulin lispro 100 unit/mL 8 unit (0.08 mL) subcut TID #15 mL 07/30/24 09/29/24 Rx subcutaneous pen (Humalog KwikPen (U-100) Insulin) nabumetone 750 mg tablet 750 mg PO BID #60 tabs 08/01/24 09/29/24 Rx omeprazole 40 mg capsule,delayed See Rx Instructions .Route 08/11/24 09/29/24 Rx release .COMPLEX #60 caps dulaglutide 1.5 mg/0.5 mL 1.5 mg (0.5 mL) subcut WEEKLY #2 mL 08/27/24 09/29/24 Rx subcutaneous pen injector lisinopril 20 mg tablet 20 mg PO BID #180 tabs 08/27/24 09/29/24 Rx gabapentin 400 mg capsule See Rx Instructions .Route 09/07/24 09/29/24 Rx .COMPLEX #270 caps metoclopramide HCl 10 mg tablet 10 mg PO .AM and HS #60 tabs 09/07/24 09/29/24 Rx (Reglan) lipase 60,000-protease See Rx Instructions .Route 09/27/24 09/29/24 Rx 189,600-amylase 252,600 unit .COMPLEX #300 caps capsule, delay rel (Zenpep) ondansetron 4 mg disintegrating See Rx Instructions .Route 09/27/24 09/29/24 Rx tablet .COMPLEX #10 tabs albuterol sulfate 90 mcg/actuation 1 puff inhalation QID PRN 09/29/24 09/29/24 History aerosol inhaler shortness of breath or wheezing duloxetine 60 mg capsule,delayed 60 mg PO HS 09/29/24 09/29/24 History release (Cymbalta) insulin glargine U-300 conc 300 50 unit subcut HS 09/29/24 09/29/24 History unit/mL (3 mL) subcutaneous pen (Toujeo Max U-300 SoloStar) montelukast 10 mg tablet 10 mg PO HS 09/29/24 09/29/24 History (Singulair) Allergies Allergy/AdvReac Type Severity Reaction Status Date / Time celecoxib (From Celebrex) Allergy Mild Unknown Verified 09/29/24 15:07 diphenhydramine (From Allergy Mild Unknown Verified 09/29/24 15:07 Benadryl) meloxicam (From Mobic) Allergy Mild Hives Verified 09/29/24 15:07 moxifloxacin (From Avelox) Allergy Mild Unknown Verified 09/29/24 15:07 sulfur dioxide Allergy Mild Unknown Verified 09/29/24 15:07 Penicillins Allergy Hives Verified 09/29/24 15:07 Vital Signs Vital Signs - 24 hr 09/29/24 13:19 09/29/24 14:56 09/29/24 15:05 Temperature 97.6 F Pulse Rate 76 71 71 Respiratory Rate 20 13 13 Blood Pressure 152/80 H 128/72 128/72 Pulse Oximetry 97 97 97 Oxygen Delivery Room Air 09/29/24 15:06 Temperature Pulse Rate 67 Respiratory Rate Blood Pressure Pulse Oximetry Oxygen Delivery Exam Const: General: comfortable and no acute distress Other: , female, nontoxic appearance HENMT: Face/Nose/Sinus: Normal nares present Mouth: Yes moist mucous membranes Eyes: General: appearance normal, both eyes and all related structures Sclera: sclerae normal Pupils: Equal, round and reactive pupils present EOM: EOMs intact bilaterally Resp: Effort & Inspection: normal respiratory effort Auscultation: clear to auscultation bilaterally Cardio: Rate: regular rate Rhythm: regular rhythm Other: S1-S2 present without murmur, rub, ectopy GI: Other: Abdomen soft, nondistended, nontender. Normoactive bowel sounds in all quadrants. Skin: General skin exam: normal color and no rashes or lesions noted Wounds: no wounds Neuro: Speech: normal speech Motor exam (neuro): 5/5 motor strength present throughout Sensory Exam: normal sensation Other: A&O x4. Numbness to the lower half of her right face starting at cheek bone, no numbness to her forehead. No facial droop, no dysarthria. NIHSS 1 Extrem: General: normal to inspection Psych: Mental Status: mental status grossly normal Affect: normal affect Other: Good insight and judgment, pleasant H&P: Results Labs Labs: Short CBC 09/29/24 Range/Units 12:50 WBC 8.8 (4.5-10.0) K/mm3 Hgb 13.6 (12.0-15.0) g/dL Hct 42.1 (37.0-47.0) % Plt Count 197 (150-375) k/mm3 BMP 09/29/24 12:50 Sodium 138 Potassium 3.7 Chloride 104 Carbon Dioxide 27 BUN 13 Creatinine 0.57 L Glucose 78 Calcium 8.8 Cardiac Enzymes 09/29/24 Range/Units 12:50 Troponin I < 0.012 (0.000-0.034) ng/mL Liver Function 09/29/24 Range/Units 12:50 Total Bilirubin 0.5 (0.2-1.3) mg/dL AST 26 (14-36) U/L ALT 26 (6-35) U/L Alkaline Phosphatase 83 (38-126) U/L Albumin 4.3 (3.5-5.1) g/dL Assessment and Plan Assessment and plan (1) Numbness and tingling of right side of face: Code(s): R20.0 - Anesthesia of skin; R20.2 - Paresthesia of skin Status: Acute Assessment and Plan: New right-sided facial numbness starting on 09/29/2024 at 8:30 - 9 a.m. Last known well at 8:30 a.m. on 09/29/2024. - admission for observation and telemetry - not candidate for thrombolytics due to timeframe - not candidate for thrombectomy, no large vessel occlusion on CTA - CXR and head/neck CTA unremarkable, see reports for details - neurology consulted - brain MRI w/wo ordered - echo w/Bubble ordered - neuro checks Q4 - no facial droop or reports of dysphagia, consider speech/swallow eval if MR +for CVA - monitor daily labs - check lipid panel, A1C 8.1% on 07/28/2024 - will start Atorvastatin 40 mg PO, Plavix 75 mg PO, ASA 81 mg while awaiting MRI - consider 30 day event monitoring at discharge (2) Diabetes: Qualifiers: Diabetes mellitus complication status: with hyperglycemia Diabetes mellitus senior care insulin use: with intermediate teacher use Diabetes mellitus type: type 2 Qualified Code(s): E11.65 - Type 2 diabetes mellitus with hyperglycemia; Z79.4 - assisted (current) use of insulin Code(s): E11.9 - Type 2 diabetes mellitus without complications Status: Chronic Assessment and Plan: - hypoglycemia protocol - POC blood glucose ACHS - home medication: continue Lantus 50 units HS, lispro 8 units t.i.d. - correct regimen ordered - high dose TIDWM, based off BMI - A1C 8.1% on 07/28/2024 (3) HTN (hypertension): Qualifiers: Hypertension type: primary hypertension Qualified Code(s): I10 - Essential (primary) hypertension Code(s): I10 - Essential (primary) hypertension Status: Chronic Assessment and Plan: - chronic, currently 128/72 - continue home medications: Lisinopril - monitor (4) CORTEZ (obstructive sleep apnea): Code(s): G47.33 - Obstructive sleep apnea (adult) (pediatric) Status: Chronic Assessment and Plan: - previously intolerant, has mariama f/u with pulmonary Plan Diet: Heart healthy GI Prophylaxis: Not currently indicated DVT Prophylaxis: SCDs IV fluids: None Lines/Tubes: Peripheral IV Code Status: Full code Quality VTE Prophylaxis VTE prophylaxis: mechanical ordered Hospitalist MIPS Advance Care Plan I have confirmed that the patient's Advanced Care Plan is present, code status is documented, or surrogate decision maker is listed in patient medical record.: Yes Medication Reconciliation I have utilized all available resources to obtain, update and review the patients current medications (includes all prescriptions, OTC, herbals, cannabis, and nutritional supplements).: Yes
--- NOTE | 2024-09-29 15:15 | PC.NURSE ---
standard heart health dinner tray ordered
[2024-09-29 17:41] LABS: Glucose Point of Care 95 mg/dl (65-105)
[2024-09-29] MEDS: ACETAMINOPHEN 325 MG TABLET 650 MG PO ×2 (18:10→23:51)
--- NOTE | 2024-09-29 18:21 | ADMGEN ---
This patient, Mago Burgos, was admitted to Medical Room 247-. Patient/family oriented to hospital policies and general routines including ID bracelet, bed and alarms, visiting hours, pain management, procedures, bathroom and other care routines, personal items, smoking policy, room service/diet, and visiting hours. Information on how to activate the Rapid Response Team has been discussed. Patient/Family are encouraged to report perceived risks to care and to ask questions if they do not understand what they are told or what they should do.
[2024-09-29] MEDS: GABAPENTIN 400 MG CAPSULE PO (19:53)
[2024-09-29] MEDS: lisinopriL 20 MG TABLET PO (19:54)
[2024-09-29] MEDS: ALBUTEROL SULFATE NEB 2.5 MG/3 ML INH 1.25 MG INHALATION (19:57)
[2024-09-29] MEDS: FLUTICASONE/SALMETEROL 115-21 MCG INHALER 1 PUFF 2 PUFF INHALATION (19:58)
[2024-09-29 20:19] LABS: Glucose Point of Care 143 mg/dl (65-105)
[2024-09-29] MEDS: NABUMETONE 750 MG TABLET PO (20:24)
[2024-09-29] MEDS: DULoxetine HCL 60 MG CAPSULE.DR PO (20:25)
[2024-09-29] MEDS: MONTELUKAST SODIUM 10 MG TABLET PO (20:25)
[2024-09-29] MEDS: PANTOPRAZOLE 40 MG TABLET PO (20:25)
[2024-09-29] MEDS: guaiFENesin 12 HR 600 MG TABCR PO (20:25)
[2024-09-29] MEDS: METOCLOPRAMIDE HCL 10 MG TABLET PO (20:25)
[2024-09-29] MEDS: INSULIN GLARGINE (*BKC) 100 UNITS/ML 50 UNITS SUB-Q (20:26)
[2024-09-29] MEDS: CYCLOBENZAPRINE HCL 10 MG TABLET PO (21:47)
[2024-09-29] MEDS: RIZATRIPTAN BENZOATE 10 MG ODT PO (21:47)
[2024-09-30] VITALS (12 sets, daily range): BP systolic 132–153; BP diastolic 61–76; PULSE 65–79; RESP 18; TEMP 36.3–36.5; O2SAT 96–98
--- NOTE | 2024-09-30 | ECHO_ITS ---
Patient Info Name: Mago Burgos Age: 53 years : 1970 Gender: Female Ht: 63 in Wt: 206 lbs BSA: 2.08 m2 HR: 65 bpm BP: 153 / 69 mmHg Heart Rhythm: Sinus Rhythm Technical Quality: Good Exam Date: 09/30/2024 1:17 PM Exam Location: Echo Lab Patient Status: Inpatient Admit Date: 09/29/2024 Staff Ordering Physician: Jessie Brown APRN Guide [place]: Uyen Soto RDCS Attending Provider: Anahi Muñoz APRN Referring Physician: Stephanie DAVIES; Exam Type: CA echo doppler w bubble study Study Info Indications - CVA/TIA Complete two-dimensional, color flow and Doppler transthoracic echocardiogram is performed with agitated saline. Contrast/Agitated Saline Contrast/Ag. Saline: Agitated Saline Amount: 8.00 ml IV Access Condition: patent with no signs of infiltration Summary 1. Left ventricular chamber dimension is normal. 2. Left ventricular systolic function is normal, estimated at 65-70%. 3. There is mild concentric increased left ventricular wall thickness. 4. The left ventricular diastolic function is grade I diastolic dysfunction. 5. E/e' 9 is minimally elevated. 6. Left atrial chamber dimension is mildly enlarged. 7. There is trace tricuspid valve regurgitation. 8. No pulmonary hypertension, estimated pulmonary arterial systolic pressure is 31 mmHg. Left Ventricle E/e' 9 is minimally elevated. Left ventricular chamber dimension is normal. Left ventricular systolic function is normal, estimated at 65-70%. There is mild concentric increased left ventricular wall thickness. The left ventricular diastolic function is grade I diastolic dysfunction. Right Ventricle Right ventricular systolic function is normal and with normal TAPSE 2.2 cm. Right ventricular chamber dimension is normal. Left Atria Left atrial chamber dimension is mildly enlarged. Right Atria Right atrial chamber dimension is normal. Atrial Septum Agitated saline injection with and without valsalva maneuver opacified right side cardiac chambers without shunt to left side cardiac chambers. Intact interatrial septum visualized by 2D and agitated saline imaging. Aortic Valve The aortic valve is trileaflet. There is no aortic valve stenosis. There is no aortic valve regurgitation. Pulmonic Valve There is no pulmonic regurgitation. Mitral Valve There is no mitral valve stenosis. There is no mitral valve regurgitation. Tricuspid Valve There is trace tricuspid valve regurgitation. No pulmonary hypertension, estimated pulmonary arterial systolic pressure is 31 mmHg. Pericardium/Pleural There is no pericardial effusion. Inferior Vena Cava Normal inferior vena cava with >50% collapse upon inspiration consistent with normal right atrial pressure, 5 mmHg. Aorta The aortic root size at the sinus of Valsalva is normal. Left Ventricular Outflow Tract Name Value Normal LVOT 2D LVOT Diameter 2.0 cm LVOT Doppler LVOT Peak Gradient 7 mmHg LVOT Mean Gradient 3 mmHg LVOT VTI 29 cm LVOT VTI/AV VTI Ratio 0.8 LVOT Stroke Volume 89 ml LVOT CO 5.7 l/min LVOT CI 2.7 l/min/m2 Pulmonic Valve Name Value Normal RVOT Doppler RVOT Peak Gradient 2 mmHg PV Doppler PV Peak Gradient 5 mmHg Mitral Valve Name Value Normal MV Doppler MV Decel [place] 295 cm/s2 MV PHT 76 ms MV Area (PHT) 2.9 cm2 4.0-5.0 MV Diastolic Function MV E Peak Velocity 77 cm/s MV A Peak Velocity 81 cm/s MV E/A 1.0 MV Decel Time 261 ms MV Annular TDI MV E/e' (Septal) 10.1 <=8.0 MV E/e' (Lateral) 9.5 <=8.0 MV E/e' (Average) 9.8 Tricuspid Valve Name Value Normal TV Regurgitation Doppler TR Peak Velocity 255 cm/s TR Peak Gradient 23 mmHg Estimated PAP/RSVP RA Pressure 5 mmHg <=5 PA Systolic Pressure 31 mmHg <36 RV Systolic Pressure 31 mmHg <36 Aortic Valve Name Value Normal AV Doppler AV Peak Velocity 176 cm/s AV Peak Gradient 12 mmHg AV Mean Gradient 6 mmHg AV VTI 37 cm AV Area (Cont Eq VTI) 2.4 cm2 >=3.0 AV Area (Cont Eq Kyle) 2.4 cm2 AV Regurgitation 2D LVOT Area 3.1 cm2 Ventricles Name Value Normal LV Dimensions 2D/MM IVS Diastolic Thickness (2D) 1.1 cm 0.6-1.0 LVID Diastole (2D) 4.0 cm 3.8-5.2 LVIW Diastolic Thickness (2D) 1.1 cm 0.6-0.9 LVID Systole (2D) 2.6 cm 2.2-3.5 LVOT Diameter 2.0 cm LV Mass (2D Cubed) 149.23 g 67.00-162.00 LV Mass Index (2D Cubed) 72 g/m2 43-95 Relative Wall Thickness (2D) 0.55 LV Fractional Shortening/Ejection Fraction 2D/MM LV Fractional Shortening (2D) 34 % 27-45 LV EF (2D [place]) 63 % 54-74 LV Diastolic Volume (4C MOD) 127 ml LV EF (4C MOD) 74 % LV Diastolic Volume (2C MOD) 135 ml LV EF (2C MOD) 67 % LV Diastolic Volume (BP MOD) 127 ml 46-106 LV Diastolic Volume Index (BP MOD) 61 ml/m2 29-61 LV Systolic Volume (BP MOD) 38 ml 14-42 LV Systolic Volume Index (BP MOD) 18 ml/m2 8-24 LV EF (BP MOD) 70 % 54-74 LV Diastolic Length (4C) 7.9 cm LV Systolic Length (4C) 6.4 cm LV Stroke Volume (4C MOD) 94 ml Atria Name Value Normal LA Dimensions LA Volume (4C A-L) 75 ml LA Volume (BP A-L) 77 ml RA Dimensions RA Area (4C) 15.7 cm2 <=18.0 Report Signatures
[2024-09-30] MEDS: BENZONATATE 100 MG CAPSULE PO ×4 (00:04→21:42)
[2024-09-30] MEDS: ACETAMINOPHEN 325 MG TABLET 650 MG PO (05:09)
[2024-09-30 05:23] LABS: Basophils Percent Auto 0.3 % (0.2-1.2); Eosinophils Absolute Auto 0.1 K/mm3 (0-0.3); Eosinophils Percent Auto 1.7 % (0-4.4); Hematocrit 41.1 % (37.0-47.0); Hemoglobin 13.8 g/dL (12.0-15.0); Immature Granulocyte Absolute 0.03 K/mm3 (0.00-0.031); Immature Granulocyte Percent A 0.4 % (0-0.5); Lymphocytes Absolute Auto 1.51 K/mm3 (0.9-3.2); Lymphocytes Percent Auto 20.2 % (18.3-44.2); Mean Corpuscular HGB Conc 33.6 g/dl (32-36); Mean Corpuscular Hemoglobin 31.9 pg (26-34); Mean Corpuscular Volume 95.1 fl (80-100); Mean Platelet Volume 9.8 fl (7.4-10.4); Monocytes Absolute Auto 0.5 K/mm3 (0.1-0.6); Monocytes Percent Auto 6.4 % (2.6-8.5); Neutrophils Absolute Auto 5.3 K/mm3 (1.3-6.7); Platelet Count Result 191 k/mm3 (150-375); Red Blood Count 4.32 M/mm3 (4.2-5.4); White Blood Count 7.5 K/mm3 (4.5-10.0)
[2024-09-30 05:35] LABS: Anion Gap 5 mmol/L (4-12); Blood Urea Nitrogen 9 mg/dL (7-17); Calcium 8.7 mg/dL (8.4-10.2); Carbon Dioxide 28 mmol/L (22-30); Chloride 108 mmol/L (98-107); Cholesterol 189 mg/dL (0-200); Estimated CRCL calculation 111 ml/min; Estimated Glomerular Filt Rate > 60; Glucose 59 mg/dL (65-110); HDL Direct 35 mg/dL; Potassium 3.4 mmol/L (3.4-5.0); Sodium 141 mmol/L (137-145); Triglycerides 147 mg/dL (<150)
[2024-09-30 05:41] LABS: LDL Cholesterol Direct 108 mg/dL
[2024-09-30 06:03] LABS: Glucose Point of Care 104 mg/dl (65-105)
[2024-09-30 08:06] LABS: Glucose Point of Care 125 mg/dl (65-105)
[2024-09-30] MEDS: FLUTICASONE/SALMETEROL 115-21 MCG INHALER 1 PUFF 2 PUFF INHALATION ×2 (08:37→20:24)
[2024-09-30] MEDS: LIPASE/AMYLASE/PROTEASE 12,000 UNITS CAP 5 CAP PO ×3 (09:05→17:10)
[2024-09-30] MEDS: PANTOPRAZOLE 40 MG TABLET PO ×2 (09:07→21:29)
[2024-09-30] MEDS: CLOPIDOGREL BISULFATE 75 MG TABLET PO (09:07)
[2024-09-30] MEDS: GABAPENTIN 400 MG CAPSULE PO ×3 (09:07→17:11)
[2024-09-30] MEDS: LORATADINE 10 MG TABLET PO (09:08)
[2024-09-30] MEDS: METOCLOPRAMIDE HCL 10 MG TABLET PO ×2 (09:09→21:30)
[2024-09-30] MEDS: ASPIRIN 81 MG ENTERIC TABLET PO (09:09)
[2024-09-30] MEDS: guaiFENesin 12 HR 600 MG TABCR PO ×2 (09:09→21:29)
[2024-09-30] MEDS: ATORVASTATIN 40 MG TABLET PO (09:10)
[2024-09-30] MEDS: NABUMETONE 750 MG TABLET PO ×2 (09:10→17:13)
[2024-09-30] MEDS: EZETIMIBE 10 MG TABLET PO (09:11)
[2024-09-30] MEDS: lisinopriL 20 MG TABLET PO ×2 (09:11→17:36)
[2024-09-30] MEDS: RIZATRIPTAN BENZOATE 10 MG ODT PO (10:43)
[2024-09-30] MEDS: CYCLOBENZAPRINE HCL 10 MG TABLET PO (10:43)
[2024-09-30 11:55] LABS: Glucose Point of Care 84 mg/dl (65-105)
[2024-09-30 16:43] LABS: Glucose Point of Care 112 mg/dl (65-105)
--- NOTE | 2024-09-30 16:45 | P.PNIM_ITS ---
Progress Note: A&P Assessment and Plan (1) Numbness and tingling of right side of face: Code(s): R20.0 - Anesthesia of skin; R20.2 - Paresthesia of skin Status: Acute Assessment and Plan: New right-sided facial numbness starting on 09/29/2024 at 8:30 - 9 a.m. Last known well at 8:30 a.m. on 09/29/2024. - admitted for observation and telemetry - not candidate for thrombolytics due to timeframe - not candidate for thrombectomy, no large vessel occlusion on CTA - CXR and head/neck CTA unremarkable, see reports for details - neurology consulted, appreciate recommendations - 09/29 brain MRI w/wo: 1. Normal brain. No acute intracranial process. 2. Sinus disease. - echo w/Bubble LVEF 65-70% - neuro checks daily - no facial droop or reports of dysphagia, consider speech/swallow eval if MR +for CVA - monitor daily labs - check lipid panel, A1C 8.1% on 07/28/2024 - stop Atorvastatin 40 mg PO, Plavix 75 mg PO, ASA 81 mg (2) Diabetes: Qualifiers: Diabetes mellitus type: type 2 Diabetes mellitus watermaster insulin use: with mcc use Diabetes mellitus complication status: with hyperglycemia Qualified Code(s): E11.65 - Type 2 diabetes mellitus with hyperglycemia; Z79.4 - dedicated intermodal truck driver (current) use of insulin Code(s): E11.9 - Type 2 diabetes mellitus without complications Status: Chronic Assessment and Plan: - hypoglycemia protocol - POC blood glucose ACHS - home medication: continue Lantus 50 units HS>40hs, lispro 8 units t.i.d. - correct regimen ordered - high dose TIDWM, based off BMI - A1C 8.1% on 07/28/2024 (3) HTN (hypertension): Qualifiers: Hypertension type: primary hypertension Qualified Code(s): I10 - Essential (primary) hypertension Code(s): I10 - Essential (primary) hypertension Status: Chronic Assessment and Plan: - chronic, currently 128/72 - continue home medications: Lisinopril - monitor (4) CORTEZ (obstructive sleep apnea): Code(s): G47.33 - Obstructive sleep apnea (adult) (pediatric) Status: Chronic Assessment and Plan: - previously intolerant, has mariama f/u with pulmonary (5) Asthma with acute exacerbation: Code(s): J45.901 - Unspecified asthma with (acute) exacerbation Status: Acute Assessment and Plan: Wheezing resolved with inhaler earlier today --Check viral swab --Consider short course of Prednisone vs increasing symbicort --Azithromycin for sinus infection (6) Acute sinusitis: Code(s): J01.90 - Acute sinusitis, unspecified Status: Acute Assessment and Plan: Allergic vs infectious. Mild to moderate mucosal thickening on MRI. Complicated by right facial swelling/decreased sensation --Sinus rinses --FLonase and azelastine --Start azithromycin 500mg x1 then 4 more doses --Viral swab Plan Diet: Heart healthy GI Prophylaxis: Not currently indicated DVT Prophylaxis: SCDs IV fluids: None Lines/Tubes: Peripheral IV Code Status: Full code Time Spent With Patient Time: 58 minutes Subjective Date/time seen: 09/30/24 16:45 Interval history: Right facial sensation normal today Has visible swelling to right side of face and MRI brain normal, no acute intracranial process but showed sinus disease with a small right mastoid effusion Reports wheezing overnight, resolved with inhaler currnetly but doesn't feel at baseline Nonproductive cough Review of Systems Review of Systems: All systems reviewed & are unremarkable except as noted in HPI and below Exam Narrative: General - Awake and alert. No acute distress Eyes - PERRLA, EOM intact ENT - No thrush, No erythema. Right facial swelling, no erythema Neck - No noticeable or palpable swelling Lymph Nodes - No lymphadenopathy Cardiovascular - RRR no m/r/g, no JVD Lungs: Clear to auscultation, No wheezing, use of accessory muscles, no crackles Skin - Skin warm and dry, no wounds or rashes Abdomen - Normal bowel sounds, abdomen soft and nontender Extremities - No edema, cyanosis or clubbing Musculoskeletal - 5/5 strength, normal range of motion, no swollen or erythematous joints. Neurological ? Alert and oriented x 3, CN 2-12 grossly intact. Psych: Normal mood and affect Objective Data Vital Signs Vital Signs: Vital Signs - 24 hr 09/29/24 16:52 09/29/24 17:01 09/29/24 17:32 Temperature Pulse Rate 61 63 86 Respiratory Rate 14 19 16 Blood Pressure 136/73 165/80 H 141/65 H Pulse Oximetry 96 95 97 Oxygen Delivery 09/29/24 18:05 09/29/24 18:31 09/29/24 19:59 Temperature 97.6 F Pulse Rate 75 68 66 Respiratory Rate 20 19 18 Blood Pressure 158/86 H 150/68 H Pulse Oximetry 96 97 Oxygen Delivery 09/29/24 20:00 09/29/24 20:01 09/29/24 20:09 Temperature Pulse Rate 68 71 Respiratory Rate 18 Blood Pressure Pulse Oximetry 98 Oxygen Delivery Room Air 09/29/24 22:00 09/30/24 00:00 09/30/24 04:00 Temperature 97.9 F Pulse Rate 72 72 65 Respiratory Rate 18 Blood Pressure 159/85 H Pulse Oximetry 98 Oxygen Delivery 09/30/24 06:00 09/30/24 08:37 09/30/24 09:10 Temperature 97.3 F L Pulse Rate 65 Respiratory Rate 18 Blood Pressure 153/69 H Pulse Oximetry 98 98 98 Oxygen Delivery Room Air Room Air 09/30/24 14:00 Temperature 97.7 F Pulse Rate 67 Respiratory Rate 18 Blood Pressure 132/76 Pulse Oximetry 96 Oxygen Delivery Intake/Output Intake/Output: Intake & Output 09/27/24 09/28/24 09/29/24 09/30/24 23:59 23:59 23:59 23:59 Intake Total 480 Balance 480 Meds/Results Medications: Active Medications Generic Name Dose Route Start Last Admin Trade Name Freq PRN Reason Stop Dose Admin Acetaminophen 650 mg 09/29/24 14:52 09/30/24 05:09 Acetaminophen 325 Mg Tablet PO 650 mg Q4H PRN Administration Mild Pain (1-3) or Fever Albuterol 1 puff 09/29/24 19:20 Albuterol Sulfate (*Sp) Aerosol 1 Puff INHALATION QID PRN shortness of breath or wheezing Lipase/Protease/Amylase 5 cap 09/30/24 08:00 09/30/24 12:11 Lipase/Amylase/Protease 12,000 Units Cap PO 5 cap TIDWM MARIAMA Administration Lipase/Protease/Amylase 5 cap 09/30/24 07:13 Lipase/Amylase/Protease 12,000 Units Cap PO PRN PRN WITH SNACKS Aspirin 81 mg 09/30/24 09:00 09/30/24 09:09 Aspirin 81 Mg Enteric Tablet PO 81 mg QAM MARIAMA Administration Atorvastatin Calcium 40 mg 09/30/24 09:00 09/30/24 09:10 Atorvastatin 40 Mg Tablet PO 40 mg DAILY MARIAMA Administration Benzonatate 100 mg 09/29/24 19:19 09/30/24 12:14 Benzonatate 100 Mg Capsule PO 100 mg TID PRN Administration Cough Clopidogrel Bisulfate 75 mg 09/30/24 09:00 09/30/24 09:07 Clopidogrel Bisulfate 75 Mg Tablet PO 75 mg QAM MARIAMA Administration Cyclobenzaprine HCl 10 mg 09/29/24 19:20 09/30/24 10:43 Cyclobenzaprine Hcl 10 Mg Tablet PO 10 mg TID PRN Administration muscle spasm Dextrose 12.5 gm 09/29/24 15:18 Dextrose 50% 25 Gm/50 Ml Syringe IV PUSH PRN PRN Hypoglycemia Protocol Dicyclomine HCl 10 mg 09/29/24 19:20 Dicyclomine Hcl 10 Mg Capsule PO TID PRN abdominal pain Duloxetine HCl 60 mg 09/29/24 21:00 09/29/24 20:25 Duloxetine Hcl 60 Mg Capsule.Dr PO 60 mg HS MARIAMA Administration Ezetimibe 10 mg 09/30/24 09:00 09/30/24 09:11 Ezetimibe 10 Mg Tablet PO 10 mg DAILY MARIAMA Administration Fluticasone Propionate 1 spray 09/29/24 19:20 Fluticasone Propionate 0.05% Na Spr 16 Gm Btl (*Bkc) NASAL DAILY PRN NASAL CONGESTION Gabapentin 400 mg 09/29/24 19:20 09/30/24 12:11 Gabapentin 400 Mg Capsule PO 400 mg TID MARIAMA Administration Glucagon 1 mg 09/29/24 15:18 Glucagon For Inj 1 Mg Vial IM PRN PRN Hypoglycemia Protocol Glucose 15 gm 09/29/24 15:18 Glucose Oral Gel 15 Gm Of Glucse In 37.5 Gm Tube PO PRN PRN Hypoglycemia Protocol Guaifenesin 600 mg 09/29/24 21:00 09/30/24 09:09 Guaifenesin 12 Hr 600 Mg Tabcr PO 600 mg Q12HR MARIAMA Administration Dextrose 1,000 mls @ 100 mls/hr 09/29/24 15:18 Dextrose 5% 1,000 Ml IVPB PRN PRN Hypoglycemia Protocol Insulin Aspart 4 - 8 units 09/29/24 17:00 09/30/24 12:03 Insulin Aspart (*Bkc) 100 Units/Ml SUB-Q Not Given TIDWM MARIAMA Protocol Insulin Aspart 8 units 09/30/24 08:00 09/30/24 12:12 Insulin Aspart (*Bkc) 100 Units/Ml SUB-Q Not Given TIDWM MARIAMA Insulin Glargine 50 units 09/29/24 21:00 09/29/24 20:26 Insulin Glargine (*Bkc) 100 Units/Ml SUB-Q 50 units HS MARIAMA Administration Lisinopril 20 mg 09/29/24 19:40 09/30/24 09:11 Lisinopril 20 Mg Tablet PO 20 mg BID MARIAMA Administration Loratadine 10 mg 09/30/24 09:00 09/30/24 09:08 Loratadine 10 Mg Tablet PO 10 mg QAM MARIAMA Administration Metoclopramide HCl 10 mg 09/29/24 21:00 09/30/24 09:09 Metoclopramide Hcl 10 Mg Tablet PO 10 mg Q12HR MARIAMA Administration Montelukast Sodium 10 mg 09/29/24 21:00 09/29/24 20:25 Montelukast Sodium 10 Mg Tablet PO 10 mg HS MARIAMA Administration Nabumetone 750 mg 09/29/24 19:40 09/30/24 09:10 Nabumetone 750 Mg Tablet PO 750 mg BID MARIAMA Administration Ondansetron HCl 4 mg 09/29/24 14:52 Ondansetron Inj 4 Mg/2 Ml Vial IV PUSH Q4H PRN Nausea Ondansetron HCl 4 mg 09/29/24 19:20 Ondansetron Hcl Odt 4 Mg Tablet SUBLINGUAL Q8H PRN Nausea And Vomiting Pantoprazole Sodium 40 mg 09/29/24 21:00 09/30/24 09:07 Pantoprazole 40 Mg Tablet PO 40 mg Q12HR MARIAMA Administration Perflutren Lipid Microsphere 0 ml 09/29/24 15:18 Perflutren Lipid Microspheres 1.5 Ml Vial Diluted To 10 Ml Total Volume IV PUSH 10/02/24 15:18 ONCE PRN adequate visualization Protocol Rizatriptan Benzoate 10 mg 09/29/24 19:20 09/30/24 10:43 Rizatriptan Benzoate 10 Mg Odt PO 10 mg PRN PRN Administration Migraine Headache Fluticasone/Salmeterol 2 puff 09/29/24 20:00 09/30/24 08:37 Fluticasone/Salmeterol 115-21 Mcg Inhaler 1 Puff INHALATION 2 puff Q12HRT MARIAMA Administration Radiology Results: ITS Impressions Head/Neck CTA 09/29/24 13:32 IMPRESSION: 1. There is no evident atherosclerotic plaque with 0% stenosis of the right and left carotid bulbs relative to normal distal artery lumen diameter (NASCET criteria). 2. Normal brain. No acute intracranial process. 3. Unremarkable cerebral CT angiogram with no aneurysm, thrombosis or significant stenosis. Chest X-Ray 09/29/24 13:48 Impression: Normal chest. Brain MRI 09/30/24 15:40 IMPRESSION: 1. Normal brain. No acute intracranial process. 2. Sinus disease. Labs Labs: Laboratory Results - last 24 hr 09/29/24 09/29/24 09/30/24 17:39 20:06 05:02 WBC 7.5 RBC 4.32 Hgb 13.8 Hct 41.1 MCV 95.1 MCH 31.9 MCHC 33.6 RDW 13.0 Plt Count 191 MPV 9.8 Immature Gran % (Auto) 0.4 Neut % (Auto) 71.0 Lymph % (Auto) 20.2 Atlantic % (Auto) 6.4 Eos % (Auto) 1.7 Baso % (Auto) 0.3 Lymph # (Auto) 1.51 Atlantic # (Auto) 0.5 Eos # (Auto) 0.1 Baso # (Auto) 0.0 Abs Immat Gran (auto) 0.03 Absolute Neuts (auto) 5.3 Absolute Nucleated RBC 0.000 Nucleated RBC % 0.0 Sodium 141 Potassium 3.4 Chloride 108 H Carbon Dioxide 28 Anion Gap 5 BUN 9 Creatinine 0.55 L Estim Creat Clear Calc 111 Estimated GFR > 60 Glucose 59 L* POC Capillary Glucose 95 143 H Calcium 8.7 Triglycerides 147 Cholesterol 189 LDL Cholesterol Direct 108 HDL Direct 35 09/30/24 09/30/24 09/30/24 05:59 07:43 11:42 WBC RBC Hgb Hct MCV MCH MCHC RDW Plt Count MPV Immature Gran % (Auto) Neut % (Auto) Lymph % (Auto) Atlantic % (Auto) Eos % (Auto) Baso % (Auto) Lymph # (Auto) Atlantic # (Auto) Eos # (Auto) Baso # (Auto) Abs Immat Gran (auto) Absolute Neuts (auto) Absolute Nucleated RBC Nucleated RBC % Sodium Potassium Chloride Carbon Dioxide Anion Gap BUN Creatinine Estim Creat Clear Calc Estimated GFR Glucose POC Capillary Glucose 104 125 H 84 Calcium Triglycerides Cholesterol LDL Cholesterol Direct HDL Direct 09/30/24 16:37 WBC RBC Hgb Hct MCV MCH MCHC RDW Plt Count MPV Immature Gran % (Auto) Neut % (Auto) Lymph % (Auto) Atlantic % (Auto) Eos % (Auto) Baso % (Auto) Lymph # (Auto) Atlantic # (Auto) Eos # (Auto) Baso # (Auto) Abs Immat Gran (auto) Absolute Neuts (auto) Absolute Nucleated RBC Nucleated RBC % Sodium Potassium Chloride Carbon Dioxide Anion Gap BUN Creatinine Estim Creat Clear Calc Estimated GFR Glucose POC Capillary Glucose 112 H Calcium Triglycerides Cholesterol LDL Cholesterol Direct HDL Direct Quality VTE Prophylaxis VTE prophylaxis: mechanical ordered Hospitalist MIPS Advance Care Plan I have confirmed that the patient's Advanced Care Plan is present, code status is documented, or surrogate decision maker is listed in patient medical record.: Yes Medication Reconciliation I have utilized all available resources to obtain, update and review the patients current medications (includes all prescriptions, OTC, herbals, cannabis, and nutritional supplements).: Yes
--- NOTE | 2024-09-30 17:06 | WPDNEURCNPN ---
Assessment and Plan Assessment and plan (1) Numbness and tingling of right side of face: Code(s): R20.0 - Anesthesia of skin; R20.2 - Paresthesia of skin Status: Acute (2) Migraines: Code(s): G43.909 - Migraine, unspecified, not intractable, without status migrainosus Status: Acute (3) Diabetic neuropathy: Qualifiers: Diabetes mellitus type: type 2 Diabetes mellitus complication detail: diabetic polyneuropathy Qualified Code(s): E11.42 - Type 2 diabetes mellitus with diabetic polyneuropathy Code(s): E11.40 - Type 2 diabetes mellitus with diabetic neuropathy, unspecified Status: Acute Plan MRI of the brain was within normal range. I also did not find any focal deficit. The description does not seem to fit into trigeminal neuralgia and hence symptoms are atypical. Symptomatic treatment of migraine is recommended. She is already under care of a neurologist and I would advise her to continue follow-up with her. CT angiogram head and neck also within normal range. Consult date: 09/30/24 HPI: Mago Burgos is a 53 year old female With complaints of numbness in the right side of the face and right arm and sometimes in both upper limbs was seen for neurologic evaluation. She seems to mostly worried about the right face. She also suffers from frequent headaches that occur for 5 times a week. She is under care of a neurologist in [facility]. Upon admission to the emergency room she had a CT angiogram of the head and neck which did not show any abnormalities. Her symptoms persist. No other symptoms. Review of Systems Review of Systems: She suffers from dizziness, headache, neck pain and lower back pain. She states that she has had numerous diagnostic testing including MRI of the lumbar and cervical spine recently at this hospital upon the direction of her neurologist in [facility]. [facility] Past Medical History Medical History Vitamin B12 deficiency Migraines Asthma GERD (gastroesophageal reflux disease) Depression Osteoarthritis Fibromyalgia Diabetic neuropathy CORTEZ (obstructive sleep apnea) HLD (hyperlipidemia) HTN (hypertension) Diabetes Surgical History Surgical History Hx of foot surgery History of endometrial ablation History of tubal ligation Family History Family History Father Asthma Carcinoma of colon Hypertension Mother Hypertension Cerebrovascular accident Social History Social History Smoking packs per day: 0.5 Smoking cigarettes per day: 10.0 Years smoked: 25 Smoking pack-years: 12.50 Smoking status: Current every day smoker Alcohol intake: never Substance use: never Substance use type: does not use Do You Feel Safe in your Home?: Yes Lack of Transportation: No Lack of Food: Never True Current Housing: I Have Housing Concerned About Future Housing: No Difficulty Paying Gas/Electric Bills: No Difficulty Paying for Meds: No Currently Unemployed: No Education: Don't Know Difficulty w/ Childcare or Family Care: No Living arrangements: with family Occupation/Education: occupation Gender identity (if verbalized by the patient): Female Sexual Orientation (if Verbalized by the Patient): Straight or Heterosexual Spiritual care concerns: No Meds Home Medications and Allergies Home Medications ?Medication ?Instructions ?Recorded ?Confirmed ?Type cetirizine 10 mg capsule (Zyrtec) 10 mg PO DAILY PRN Allergy Symptoms 06/24/23 09/29/24 History ergocalciferol (vitamin D2) 1,250 1,250 mcg PO WEEKLY 06/24/23 09/29/24 History mcg (50,000 unit) capsule fluticasone propionate 50 1 spray intranasal .PRN 06/24/23 09/29/24 History mcg/actuation nasal spray,suspension (Allergy Relief (fluticasone)) B6 35 mg-B9 3 mg-B12 2 mg-D3 62.5 cap PO 10/09/23 08/27/24 History mcg-ALA 300 mg capsule,delay release (EB-N5 DR) dicyclomine 10 mg capsule 10 mg PO TID PRN abdominal pain 10/09/23 09/29/24 Rx #90 caps cyclobenzaprine 10 mg tablet 10 mg PO TID PRN muscle spasm 10/31/23 09/29/24 History rizatriptan 10 mg tablet See Rx Instructions .Route 05/21/24 09/29/24 Rx .COMPLEX #10 tabs ezetimibe 10 mg tablet See Rx Instructions .Route 07/13/24 09/29/24 Rx .COMPLEX #90 tabs pen needle, diabetic 31 gauge x #400 ea 07/15/24 09/29/24 Rx 5/16 (BD Ultra-Fine Short Pen Needle) budesonide-formoterol HFA 160 2 puff inhalation Q12H #10.2 grams 07/30/24 09/29/24 Rx mcg-4.5 mcg/actuation aerosol inhaler (Symbicort) insulin lispro 100 unit/mL 8 unit (0.08 mL) subcut TID #15 mL 07/30/24 09/29/24 Rx subcutaneous pen (Humalog KwikPen (U-100) Insulin) nabumetone 750 mg tablet 750 mg PO BID #60 tabs 08/01/24 09/29/24 Rx omeprazole 40 mg capsule,delayed See Rx Instructions .Route 08/11/24 09/29/24 Rx release .COMPLEX #60 caps dulaglutide 1.5 mg/0.5 mL 1.5 mg (0.5 mL) subcut WEEKLY #2 mL 08/27/24 09/29/24 Rx subcutaneous pen injector lisinopril 20 mg tablet 20 mg PO BID #180 tabs 08/27/24 09/29/24 Rx gabapentin 400 mg capsule See Rx Instructions .Route 09/07/24 09/29/24 Rx .COMPLEX #270 caps metoclopramide HCl 10 mg tablet 10 mg PO .AM and HS #60 tabs 09/07/24 09/29/24 Rx (Reglan) lipase 60,000-protease See Rx Instructions .Route 09/27/24 09/29/24 Rx 189,600-amylase 252,600 unit .COMPLEX #300 caps capsule, delay rel (Zenpep) ondansetron 4 mg disintegrating See Rx Instructions .Route 09/27/24 09/29/24 Rx tablet .COMPLEX #10 tabs albuterol sulfate 90 mcg/actuation 1 puff inhalation QID PRN 09/29/24 09/29/24 History aerosol inhaler shortness of breath or wheezing duloxetine 60 mg capsule,delayed 60 mg PO HS 09/29/24 09/29/24 History release (Cymbalta) insulin glargine U-300 conc 300 50 unit subcut HS 09/29/24 09/29/24 History unit/mL (3 mL) subcutaneous pen (Toujeo Max U-300 SoloStar) montelukast 10 mg tablet 10 mg PO HS 09/29/24 09/29/24 History (Singulair) Allergies Allergy/AdvReac Type Severity Reaction Status Date / Time celecoxib (From Celebrex) Allergy Mild Unknown Verified 09/29/24 15:07 diphenhydramine (From Allergy Mild Unknown Verified 09/29/24 15:07 Benadryl) meloxicam (From Mobic) Allergy Mild Hives Verified 09/29/24 15:07 moxifloxacin (From Avelox) Allergy Mild Unknown Verified 09/29/24 15:07 sulfur dioxide Allergy Mild Unknown Verified 09/29/24 15:07 Penicillins Allergy Hives Verified 09/29/24 15:07 Vital Signs Vital Signs - 24 hr 09/29/24 17:32 09/29/24 18:05 09/29/24 18:31 Temperature 97.6 F Pulse Rate 86 75 68 Respiratory Rate 16 20 19 Blood Pressure 141/65 H 158/86 H 150/68 H Pulse Oximetry 97 96 97 Oxygen Delivery 09/29/24 19:59 09/29/24 20:00 09/29/24 20:01 Temperature Pulse Rate 66 68 Respiratory Rate 18 Blood Pressure Pulse Oximetry 98 Oxygen Delivery Room Air 09/29/24 20:09 09/29/24 22:00 09/30/24 00:00 Temperature 97.9 F Pulse Rate 71 72 72 Respiratory Rate 18 18 Blood Pressure 159/85 H Pulse Oximetry 98 Oxygen Delivery 09/30/24 04:00 09/30/24 06:00 09/30/24 08:37 Temperature 97.3 F L Pulse Rate 65 65 Respiratory Rate 18 Blood Pressure 153/69 H Pulse Oximetry 98 98 Oxygen Delivery Room Air 09/30/24 09:10 09/30/24 14:00 Temperature 97.7 F Pulse Rate 67 Respiratory Rate 18 Blood Pressure 132/76 Pulse Oximetry 98 96 Oxygen Delivery Room Air Exam Const: General: cooperative, well developed and alert Orientation/consciousness: patient oriented x3 HENMT: Head: atraumatic Mouth: Yes oropharynx normal Eyes: Alignment and Position: position normal Pupils: Equal, round and reactive pupils present EOM: EOMs intact bilaterally Neck: Neck: supple Resp: Effort & Inspection: normal respiratory effort Neuro: General: patient oriented x3 Cranial nerves: Yes CN's II-XII intact bilaterally, Yes facial sensation intact/muscles of mastication intact, Yes Equal, round and reactive pupils present, Yes facial symmetry and Yes Midline tongue present Cognition (Neuro): normal cognition Speech: normal speech Motor exam (neuro): 5/5 motor strength present throughout Sensory Exam: normal sensation Coordination: [id number] test normal and Normal rapid alternating movements of the distal upper extremity present (Neuro) Results Labs 09/30/24 05:02 09/30/24 05:02 Labs: Short CBC 09/30/24 Range/Units 05:02 WBC 7.5 (4.5-10.0) K/mm3 Hgb 13.8 (12.0-15.0) g/dL Hct 41.1 (37.0-47.0) % Plt Count 191 (150-375) k/mm3 BMP 09/30/24 05:02 Sodium 141 Potassium 3.4 Chloride 108 H Carbon Dioxide 28 BUN 9 Creatinine 0.55 L Glucose 59 L* Calcium 8.7
[2024-09-30] MEDS: AZITHROMYCIN 250 MG TABLET 500 MG PO (17:36)
[2024-09-30] MEDS: FLUTICASONE PROPIONATE 0.05% NA SPR 16 GM BTL (*BKC) 2 SPRAY NASAL (17:37)
[2024-09-30] MEDS: SALINE 0.65% NAS SOLN 44 ML BTL 6 SPRAY NASAL (18:03)
[2024-09-30 19:00] LABS: Influenza A QL RT-PCR Negative (Negative); Influenza B QL RT-PCR Negative (Negative); RSV RNA, RT-PCR Negative (Negative); SARS-CoV-2 RNA PCR Negative (Negative)
[2024-09-30 20:33] LABS: Glucose Point of Care 201 mg/dl (65-105)
[2024-09-30] MEDS: MONTELUKAST SODIUM 10 MG TABLET PO (21:29)
[2024-09-30] MEDS: DULoxetine HCL 60 MG CAPSULE.DR PO (21:29)
[2024-09-30] MEDS: AZELASTINE HCL NASAL 0.1% 137 MCG/SPR 30 ML BTL 1 SPRAY NASAL (21:30)
[2024-09-30] MEDS: INSULIN GLARGINE (*BKC) 100 UNITS/ML 40 UNITS SUB-Q (21:31)
[2024-10-01] VITALS (7 sets, daily range): BP systolic 150; BP diastolic 71; PULSE 57–80; RESP 18–20; TEMP 36.8; O2SAT 96
[2024-10-01] MEDS: IPRATROPIUM 0.5 MG/ALBUTEROL SULFATE 2.5 MG AMPUL.NEB 3 ML INHALATION ×2 (01:00→08:06)
[2024-10-01 04:39] LABS: Glucose Point of Care 121 mg/dl (65-105)
[2024-10-01 07:58] LABS: Glucose Point of Care 99 mg/dl (65-105)
[2024-10-01] MEDS: FLUTICASONE/SALMETEROL 115-21 MCG INHALER 1 PUFF 2 PUFF INHALATION (08:06)
[2024-10-01] MEDS: LIPASE/AMYLASE/PROTEASE 12,000 UNITS CAP 5 CAP PO ×2 (08:45→12:21)
[2024-10-01] MEDS: lisinopriL 20 MG TABLET PO (08:45)
[2024-10-01] MEDS: PANTOPRAZOLE 40 MG TABLET PO (08:45)
[2024-10-01] MEDS: METOCLOPRAMIDE HCL 10 MG TABLET PO (08:45)
[2024-10-01] MEDS: LORATADINE 10 MG TABLET PO (08:45)
[2024-10-01] MEDS: EZETIMIBE 10 MG TABLET PO (08:45)
[2024-10-01] MEDS: GABAPENTIN 400 MG CAPSULE PO ×2 (08:45→12:21)
[2024-10-01] MEDS: guaiFENesin 12 HR 600 MG TABCR PO (08:45)
[2024-10-01] MEDS: AZELASTINE HCL NASAL 0.1% 137 MCG/SPR 30 ML BTL 1 SPRAY NASAL (08:46)
[2024-10-01] MEDS: ACETAMINOPHEN 325 MG TABLET 650 MG PO (08:56)
[2024-10-01] MEDS: NABUMETONE 750 MG TABLET PO (08:56)
[2024-10-01] MEDS: BENZONATATE 100 MG CAPSULE PO (09:05)
--- NOTE | 2024-10-01 09:29 | P.DS_ITS ---
DS: Admitting Diagnosis Discharge Date 10/01/2024 Admitting Diagnosis Facial numbness DS: Discharge Diagnosis Discharge Diagnosis (1) Acute sinusitis: Code(s): J01.90 - Acute sinusitis, unspecified Status: Acute (2) Asthma exacerbation: Code(s): J45.901 - Unspecified asthma with (acute) exacerbation Status: Acute DS: Summary Hospital Course Reason for hospitalization: Copied from H&P: 53 y/o F with PMH of migraines, asthma, GERD, depression, osteoarthritis, fibromyalgia, neuropathy, CORTEZ (not on CPAP, seeing pulm), HLD, HTN, and diabetes presents here with facial numbness and intermittent upper extremity weakness. The patient presents here from home on 09/29/2024 for further evaluation of numbness to the right side of her face and weakness to her right upper extremity. She reports her last known well as 8:30 a.m. on 09/29/2024. She developed/discovered the right facial numbness at 8:30 - 9 a.m. This was accompanied by intermittent weakness to her RUE - had a fall back in Jun and has had intermittent paraesthesias and has been experiencing this so she is unsure if today's symptoms to RUE are new as they are similar to what she has been experiencing. She denies difficulty swallowing, vision changes, focal numbness, focal weakness, speech changes, changes in balances, or dizziness. She has no previous history of stroke. History of migraines - reports typical migraines are occasionally cluster in nature and sometimes will have black or white floaters, no headache. Initial VS at presentation: 97.6? F, HR 76, R 20, 152/80, and 97% on RA. ED workup showed: No leukocytosis, no anemia, normal coags, no significant electrolyte derangements, creatinine 0.57 and GFR >60, initial troponin negative. CXR showed normal chest. Head/neck CTA showed no evidence of atherosclerotic plaque with 0% stenosis of the right/left carotid bulbs, normal brain, no acute intracranial process, unremarkable cerebral CT angiogram with no aneurysm/thrombosis/significant stenosis. EKG showed sinus rhythm, rate 74, possible anterior WA of probably old. Hospital Course: Numbness and tingling of right side of face: New right-sided facial numbness starting on 09/29/2024 at 8:30 - 9 a.m. Last known well at 8:30 a.m. on 09/29/2024. She was admitted for observation and telemetry. Not candidate for thrombolytics due to timeframe. Not candidate for thrombectomy, no large vessel occlusion on CTA. CXR and head/neck CTA unremarkable, see reports for details. Upper extremity pain/numbness chronic, intermittent, resolved. Likely radiculopathy. Right facial numbness likely 2/2 sinusitis, had visible swelling to right side of face. No difficulty swallowing or speaking. Neurology consulted during admission. Stopped plavix, asa and statin since no CVA. lipid panel normal. A1C 8.1% on 07/28/202409/29 brain MRI w/wo: 1. Normal brain. No acute intracranial process. 2. Sinus disease. / echo w/Bubble LVEF 65-70% 1. Left ventricular chamber dimension is normal. 2. Left ventricular systolic function is normal, estimated at 65-70%. 3. There is mild concentric increased left ventricular wall thickness. 4. The left ventricular diastolic function is grade I diastolic dysfunction. 5. E/e' 9 is minimally elevated. 6. Left atrial chamber dimension is mildly enlarged. 7. There is trace tricuspid valve regurgitation. 8. No pulmonary hypertension, estimated pulmonary arterial systolic pressure is 31 mmHg. Sinusitis Allergic vs infectious. Mild to moderate mucosal thickening on MRI. Complicated by right facial swelling/decreased sensation. No erythema --Viral swab --5 day course of azithromycin. Qtc was normal, 422 --Started sinus rinses, changed fluticasone to fluticasone/azelastine --Continued daily antihistamine --Prednisone for mild asthma exacerbation may also help inflammation Asthma with acute exacerbation: Mild exacerbation. Viral swab negative but doesn't rule out viral illness Wheezing resolved with breathing treatments. Started a short course of steroids, Prednisone 40mg x5 days --Continue symbiocort, albuterol prn Diabetes mellitus type 2. A1C 8.1% on 07/28/2024 - hypoglycemia protocol - POC blood glucose ACHS - home medication: continue Lantus 50 units HS>40hs, lispro 8 units t.i.d. Reduced dose of Lantus to 40 units hs CORTEZ (obstructive sleep apnea): previously intolerant, has mariama f/u with pu lmonary Headache/Migraine Chronic. --Treatment of sinusitis as noted --Follow with outpatient neurology. Time Spent with Patient Time attestation: Total time spent providing and/or coordinating discharge services: Exam Narrative: General - Awake and alert. No acute distress Eyes - PERRLA, EOM intact ENT - No thrush. Mild facial edema, right side, no erythema Neck - No noticeable or palpable swelling Lymph Nodes - No lymphadenopathy Cardiovascular - RRR no m/r/g, no JVD Lungs: Clear to auscultation, No wheezing, use of accessory muscles, no crackles Skin - Skin warm and dry, no wounds or rashes Abdomen - Normal bowel sounds, abdomen soft and nontender Extremities - No edema, cyanosis or clubbing Musculoskeletal - 5/5 strength, normal range of motion, no swollen or erythematous joints. Neurological ? Alert and oriented x 3, CN 2-12 grossly intact. Psych: Normal mood and affect DS: Data Data Completed and Pending Labs on day of discharge: Labs from last 24 hours 10/01/24 10/01/24 09/30/24 07:36 04:36 19:47 POC Capillary Glucose 99 121 H 201 H Influenza A (RT-PCR) Influenza B (RT-PCR) RSV (RT-PCR) SARS-CoV-2 RNA (RT-PCR) 09/30/24 09/30/24 09/30/24 17:42 16:37 11:42 POC Capillary Glucose 112 H 84 Influenza A (RT-PCR) Negative Influenza B (RT-PCR) Negative RSV (RT-PCR) Negative SARS-CoV-2 RNA (RT-PCR) Negative Discharge Plan Discharge Attending physician on discharge: Anahi Muñoz Consulting providers: Bentley Wilkinson Discharging Clinician: Anahi Muñoz Anticipated Discharge Date/Time: 10/01/24 09:08 Patient Disposition: Home Activity: may shower Diet: diabetic Discharge Instructions: Follow up with your PCP in 1-2 weeks Boil water and cool or use distilled water for neti pot, then use nasal sprays You had a normal head CT and brain MRI so no stroke and you had no plaque in your arteries in your neck, which is good. You did not have the flu, covid or RSV. Symptoms likely from sinus infection. Follow up with neurology for migraines, and for pulmonary for asthma and allergies. You can follow up with ENT and allergy if you continue to have symptoms after talking to your PCP. Patient Instructions: Antibiotic Form Patient Language: Croatian Stand Alone Forms: General Discharge Information, Work/School Release IP Follow-up/Referrals: Lalit Hammonds MD [Primary Care Provider] - Call for Appointment Discharge Medications: New azithromycin [Zithromax] 250 mg Tablet 250 mg PO DAILY Qty: 4 0RF benzonatate 100 mg Capsule 100 mg PO TID PRN (Reason: Cough) 30 Days Qty: 30 0RF azelastine-fluticasone 137-50 mcg/spray spray,non-aerosol 1 spray intranasal BID Qty: 23 0RF Rx Instructions: administer into each nostril Sinus Wash Neti Pot Packet With Rinse Device 1 ea .Route DAILY@0630 PRN (Reason: nasal congestion) Qty: 30 0RF Rx Instructions: as needed for nasal congestion prednisone 20 mg tablet 40 mg PO DAILY Qty: 10 0RF Continued EB-N5 DR 35 mg-3 mg- 2 mg-62.5 mcg capsule,delayed release(DR/EC) PO dicyclomine 10 mg capsule 10 mg PO TID PRN (Reason: abdominal pain) Qty: 90 2RF budesonide-formoterol [Symbicort] 160-4.5 mcg/actuation HFA aerosol inhaler 2 puff inhalation Q12H Qty: 10.2 3RF insulin lispro [Humalog KwikPen Insulin] 100 unit/mL insulin pen 8 unit subcut TID Qty: 15 0RF ergocalciferol (vitamin D2) 1,250 mcg (50,000 unit) capsule 1,250 mcg PO WEEKLY Zyrtec 10 mg capsule 10 mg PO DAILY PRN (Reason: Allergy Symptoms) dulaglutide 1.5 mg/0.5 mL pen injector 1.5 mg subcut WEEKLY Qty: 2 0RF Patient Comments: patient takes on Friday lisinopril 20 mg tablet 20 mg PO BID Qty: 180 2RF cyclobenzaprine 10 mg tablet 10 mg PO TID PRN (Reason: muscle spasm) montelukast [Singulair] 10 mg tablet 10 mg PO HS albuterol sulfate 90 mcg/actuation HFA aerosol inhaler 1 puff inhalation QID PRN (Reason: shortness of breath or wheezing) duloxetine [Cymbalta] 60 mg capsule,delayed release(DR/EC) 60 mg PO HS insulin glargine U-300 conc [Toujeo Max U-300 SoloStar] 300 unit/mL (3 mL) insulin pen 50 unit subcut HS rizatriptan 10 mg tablet See Rx Instructions .ROUTE .COMPLEX Qty: 10 5RF Rx Instructions: one po prn migraine, may repeat once after 2 hrs; ezetimibe 10 mg tablet See Rx Instructions .ROUTE .COMPLEX Qty: 90 1RF Dose Instruction: TAKE 1 TABLET BY MOUTH DAILY Rx Instructions: TAKE 1 TABLET BY MOUTH DAILY (DME) pen needle, diabetic [BD Ultra-Fine Short Pen Needle] 31 gauge x 5/16 needle See Rx Instructions .Route Qty: 400 3RF Rx Instructions: injection qac and qhs nabumetone 750 mg tablet 750 mg PO BID Qty: 60 1RF omeprazole 40 mg capsule,delayed release(DR/EC) See Rx Instructions .ROUTE .COMPLEX Qty: 60 6RF Dose Instruction: TAKE 1 CAPSULE BY MOUTH TWICE DAILY Rx Instructions: TAKE 1 CAPSULE BY MOUTH TWICE DAILY gabapentin 400 mg capsule See Rx Instructions .ROUTE .COMPLEX Qty: 270 2RF Dose Instruction: TAKE 1 CAPSULE BY MOUTH THREE TIMES DAILY Rx Instructions: TAKE 1 CAPSULE BY MOUTH THREE TIMES DAILY metoclopramide HCl [Reglan] 10 mg tablet 10 mg PO .AM and HS Qty: 60 6RF ondansetron 4 mg tablet,disintegrating See Rx Instructions .ROUTE .COMPLEX Qty: 10 2RF Dose Instruction: DISSOLVE 1 TABLET ON THE TONGUE EVERY 8 HOURS NEEDED FOR NAUSEA OR VOMITING Rx Instructions: DISSOLVE 1 TABLET ON THE TONGUE EVERY 8 HOURS NEEDED FOR NAUSEA OR VOMITING Zenpep 60,000-189,600- 252,600 unit capsule,delayed release(DR/EC) See Rx Instructions .ROUTE .COMPLEX Qty: 300 12RF Dose Instruction: TAKE 1 CAPSULE BY MOUTH WITH MEALS AND SNACKS Rx Instructions: TAKE 1 CAPSULE BY MOUTH WITH MEALS AND SNACKS Discontinued fluticasone propionate [Allergy Relief (fluticasone)] 50 mcg/actuation spray,suspension 1 spray intranasal .PRN Rx Instructions: administer into each nostril Date of admission: 09/29/24 14:53 Primary Care Provider: Lalit Hammonds Admitting Provider: Rochelle Tanner Attending physician on admission: Anahi Muñoz Condition: Stable Hospitalist MIPS Heart Failure (Exclusion) Patient has history of Heart Transplant or Left Ventricular Assistive Device?: No IF YES, STOP HERE Heart Failure (Qualifier) Patient has current or prior documentation of LVEF less than or equal to 40%, or mod/servere depressed LVSF?: No IF NO, STOP HERE
[2024-10-01 11:46] LABS: Glucose Point of Care 138 mg/dl (65-105)
[2024-10-01] MEDS: SALINE 0.65% NAS SOLN 44 ML BTL 6 SPRAY NASAL (12:20)
== END 2024-10-01 14:00 | disposition home or self-care (01) ==
LOC: ANHED 14:55 → ANH3MEDSUR 15:32 → ANH2MED 17:57
PROVIDERS: Emergency Medicine; Student in an Organized Health Care Education/Training Program; Admitting Provider Hospitalist; Emergency Provider Emergency Medicine; PCP Family Medicine; Visit Provider Nurse Practitioner Acute Care
DX: R20.0 Anesthesia of skin (principal); R20.2 Paresthesia of skin; J01.90 Acute sinusitis, unspecified; J45.901 Unspecified asthma with (acute) exacerbation; R29.898 Other symptoms and signs involving the musculoskeletal system; Z91.81 History of falling; E11.65 Type 2 diabetes mellitus with hyperglycemia; E11.40 Type 2 diabetes mellitus with diabetic neuropathy, unspecified; I10 Essential (primary) hypertension; G47.33 Obstructive sleep apnea (adult) (pediatric); G43.909 Migraine, unspecified, not intractable, without status migrainosus; K21.9 Gastro-esophageal reflux disease without esophagitis; M19.90 Unspecified osteoarthritis, unspecified site; F32.A Depression, unspecified; M79.7 Fibromyalgia; E78.5 Hyperlipidemia, unspecified; F17.210 Nicotine dependence, cigarettes, uncomplicated; E53.8 Deficiency of other specified B group vitamins; Z20.822 Contact with and (suspected) exposure to COVID-19; Z79.4 Long term (current) use of insulin; Z79.899 Other long term (current) drug therapy
CPT/HCPCS: 36415; 70496; 70498; 70553; 71045; 80048; 80053; 80061; 82948; 84484; 85025; 85610; 85730; 87637; 93005; 93306; 94640; 96374; 96375; 99285; A9270; A9579; G0378; J1815; Q9967

== ENCOUNTER 2024-12-02 07:49 | Outpatient (CLI) | payer BC, SELFPAY ==
--- OUTSIDE RECORDS SUMMARY | 2024-12-02 07:52 | XMS_ITS | Referral Summary ---
Author Organization [facility] Address [address] [place] [id number] Care Team Providers Care Gypsum Block Setter Name Role Phone Unknown, Notinfile Primary Care [...] on file Legal Sex Female 9:20 AM FEED RESEARCH AIDE Gender Identity Not on file Sexual Orientation Not on file Last Filed Vital Signs Vital Sign Reading Time Taken Comments Blood Pressure 148/86 06/12/2024 6:18 PM FEED RESEARCH AIDE Pulse 89 06/12/2024 6:18 PM FEED RESEARCH AIDE Temperature 37 C (98.6 F) 06/12/2024 6:18 PM FEED RESEARCH AIDE Respiratory Rate 20 06/12/2024 6:18 PM FEED RESEARCH AIDE Oxygen Saturation 98% 06/12/2024 6:18 PM FEED RESEARCH AIDE Inhaled Oxygen Concentration - - Weight 93.4 kg (206 lb) 06/12/2024 6:18 PM FEED RESEARCH AIDE Height - - Body Mass Index - - Plan of Treatment Not on file Insurance [employer] ACC[employer] CHOICE Care Teams Gypsum Block Setter Relationship Specialty Start Date End Date Unknown, Notinfile PCP - General 06/12/24
--- OUTSIDE RECORDS SUMMARY | 2024-12-02 07:52 | XMS_ITS | Clinical Summary ---
Author Organization [facility] Address [address] [place] [id number] Care Team Providers Care Drapery Seamstress Name Role Phone Unknown, Notinfile Primary Care [...] on file Legal Sex Female 9:20 AM CERTIFIED ORTHOPTIST Gender Identity Not on file Sexual Orientation Not on file Last Filed Vital Signs Vital Sign Reading Time Taken Comments Blood Pressure 148/86 06/12/2024 6:18 PM CERTIFIED ORTHOPTIST Pulse 89 06/12/2024 6:18 PM CERTIFIED ORTHOPTIST Temperature 37 C (98.6 F) 06/12/2024 6:18 PM CERTIFIED ORTHOPTIST Respiratory Rate 20 06/12/2024 6:18 PM CERTIFIED ORTHOPTIST Oxygen Saturation 98% 06/12/2024 6:18 PM CERTIFIED ORTHOPTIST Inhaled Oxygen Concentration - - Weight 93.4 kg (206 lb) 06/12/2024 6:18 PM CERTIFIED ORTHOPTIST Height - - Body Mass Index - [...] on patient's age to complete this topic Insurance ON LICENSE OF [facility] [employer] CHOICE AN[employer] ACCESS CHOICE Care Teams Drapery Seamstress Relationship Specialty Start Date End Date Unknown, Notinfile PCP - General 06/12/24
--- OUTSIDE RECORDS SUMMARY | 2024-12-02 07:52 | XMS_ITS | Patient Health Record ---
Author Organization [facility] Address [address] [place] [address] Y RADHA FERNANDEZ [id number] Care Team Providers Care Detector Car Operator Name Role Phone Roberto Ji Primary Care Provider [phone] Allergies Allergen (clinical drug ingredient) Drug/Non Drug Allergy documented on EMR Reaction Allergy Type Onset Date Status moxifloxacin Avelox Unknown Drug Allergy Acti ve sulfamethoxazole / trimethoprim Bactrim Unknown Drug Allergy Active diphenhydramine Benadryl Unknown Drug Allergy A ctive celecoxib Celebrex Unknown Drug Allergy Active Penicillin Unknown Drug Allergy Active Sulfa Unknown Drug Allergy Active Reason For Referral No Information Medications Medication SIG (Take, Route, Frequency, Duration) Notes Start Date End Date Status Flexeril 10 MG 1 tablet Orally twic e a day; Duration: as needed 05/30/2012 Active Aleve Active Cymbalta Active Lunesta Active Acetaminophen-Codeine #3 300-30 MG 1 tablet as needed Orally every 6 hrs 04/12/2012 Active Mobic Active Medrol (Uriel) 4 MG as directed Orally 05/30/2012 Active Tamiflu 75 MG 1 capsule Orally Twi ce a day; Duration: 5 day(s) 05/30/2012 Active Ultram 50 MG 1 tablet as needed O rally every 6 hrs; Duration: as needed 05/30/2012 Active Plan Of Treatment No Information Insurance Providers Payer Name Payer Address Payer Phone Subscriber Number Group Number Insured Name Patient Relationship to Insured Coverage Start Date Coverage End Date [employer] Blue [facility] [address] [address] RADHA ROWE [id number] Mago Burgos Self - patient is the insured Medications Administered Medication Instructions Date of Administration Dosage Notes Celestone 6mg 05/24/2012 Norflex 04/12/2012 60 mg Torodal 60mg 04/12/2012 Torodal 60mg 05/30/2012 Medical (General) History Medical History History ICD Code Arthritis fibromyalgia sleep apnea Surgical History Surgery Date(Month/Year) tubal ligation bladder suspension cervical ablation cryo persidure
--- NOTE | 2024-12-28 20:37 | P.SLEEP_ITS ---
Sleep Study Date of Study: 12/02/24 Ordering Provider: FRANCISCA Boyce Interpreting Physician: Carmella Muse DO Sleep Study Type: Polysomnogram Height: 1.6 m Weight: 92.079 kg Body Mass Index: 35.9 Neck Circumference (inches): 15 [place]: 16 Reason for Sleep Study Daytime hypersomnia Sleep History The patient is a 54-year-old female that had a sleep study ordered by the Pulmonary group for evaluation of sleep apnea. The patient was diagnosed with severe sleep apnea in the past but was unable to be compliant with CPAP due to claustrophobia. The patient frequently awakens from sleep short of breath. She frequently awakens at night with heartburn, belching or cough. She frequently snores and is frequently loud enough that others complain. She frequently has trouble sleeping when she has a cold. She frequently wakes up gasping for air throughout the night. She frequently has breathing problems at night observed by herself or others. She frequently sweats excessively at night. She occa sionally has heart palpitations or irregular heartbeats during the night. She occasionally falls asleep during the day but rarely while driving. She occasionally has trouble at school or work due to sleepiness. She rarely feels unable to move while waking up or falling asleep. She rarely experiences vivid dreamlike scenes upon awakening or falling asleep. She rarely feels afraid of going to sleep. She occasionally has nightmares. She occasionally remembers her dreams. She occasionally has thoughts racing through her mind. She occasionally feels sad, depressed or anxious. She occasionally has muscular tension. She occasionally notices parts of her body jerk. She occasionally kicks during the night. She occasionally has crawling and aching feelings in her legs and frequently has leg pain during the night. She frequently grinds her teeth during sleep and frequently awakens morning jaw pain. She is frequently bothered by pain during the day and frequently awakened by pain during the night. She frequently wakes up feeling stiff in the morning. She frequently wakes up with sore or achy muscles. She frequently wakes up with pain in the neck, spine and other joints. She goes to bed between 7-9 p.m. on weekdays and between 7-10 p.m. on the weekends. It takes her a long time to fall asleep. She wakes up few times throughout the night to urinate and get a drink. She typically gets 4-7 hours of sleep per night. She will wake up between 5-6 a.m. every morning. She will stay in bed for 30 minutes after waking up in the morning she currently lives with her adult son. She denies consuming any caffeinated beverages within 2 hours of bedtime. She denies engaging in physical exercise before bedtime. she denies reading before falling asleep. She will watch television before falling asleep. She will take naps in afternoon or the evening with they are not refreshing. She will consume coffee in the morning. She smokes 1 pack of cigarettes per day. She denies alcohol and recreational drug use. [facility] Past Medical History Medical History Vitamin B12 deficiency Migraines Asthma GERD (gastroesophageal reflux disease) Depression Osteoarthritis Fibromyalgia Diabetic neuropathy CORTEZ (obstructive sleep apnea) HLD (hyperlipidemia) HTN (hypertension) Diabetes Surgical History Surgical History Hx of foot surgery History of endometrial ablation History of tubal ligation Family History Family History Father Asthma Carcinoma of colon Hypertension Mother Hypertension Cerebrovascular accident Social History Social History Smoking packs per day: 0.5 Smoking cigarettes per day: 10.0 Years smoked: 25 Smoking pack-years: 12.50 Smoking status: Current every day smoker Alcohol intake: never Substance use: never Substance use type: does not use Do You Feel Safe in your Home?: Yes Lack of Transportation: No Lack of Food: Never True Current Housing: I Have Housing Concerned About Future Housing: No Difficulty Paying Gas/Electric Bills: YES Difficulty Paying for Meds: YES Currently Unemployed: No Education: High School Diploma/GED Difficulty w/ Childcare or Family Care: No Living arrangements: with family Occupation/Education: occupation Gender identity (if verbalized by the patient): Female Sexual Orientation (if Verbalized by the Patient): Straight or Heterosexual Spiritual care concerns: No Medications Home Medications ?Medication ?Instructions ?Recorded ?Confirmed ?Type cyclobenzaprine 10 mg tablet 10 mg PO TID PRN muscle spasm 10/31/23 12/17/24 History ezetimibe 10 mg tablet See Rx Instructions .Route 07/13/24 12/17/24 Rx .COMPLEX #90 tabs pen needle, diabetic 31 gauge x #400 ea 07/15/24 12/17/24 Rx 5/16 (BD Ultra-Fine Short Pen Needle) insulin lispro 100 unit/mL 8 unit (0.08 mL) subcut TID #15 mL 07/30/24 12/17/24 Rx subcutaneous pen (Humalog KwikPen (U-100) Insulin) omeprazole 40 mg capsule,delayed See Rx Instructions .Route 08/11/24 12/17/24 Rx release .COMPLEX #60 caps lisinopril 20 mg tablet 20 mg PO BID #180 tabs 08/27/24 12/17/24 Rx gabapentin 400 mg capsule See Rx Instructions .Route 09/07/24 12/17/24 Rx .COMPLEX #270 caps metoclopramide HCl 10 mg tablet 10 mg PO .AM and HS #60 tabs 09/07/24 12/17/24 Rx (Reglan) lipase 60,000-protease See Rx Instructions .Route 09/27/24 12/17/24 Rx 189,600-amylase 252,600 unit .COMPLEX #300 caps capsule, delay rel (Zenpep) duloxetine 60 mg capsule,delayed 60 mg PO HS 09/29/24 12/17/24 History release (Cymbalta) montelukast 10 mg tablet See Rx Instructions .Route 10/04/24 12/17/24 Rx .COMPLEX #90 tabs insulin glargine U-300 conc 300 See Rx Instructions .Route 10/08/24 12/17/24 Rx unit/mL (3 mL) subcutaneous pen .COMPLEX #12 mL (Toujeo Max U-300 SoloStar) albuterol sulfate 2.5 mg/3 mL 2.5 mg (3 mL) inhalation Q4-6H PRN 10/12/24 12/17/24 Rx (0.083 %) solution for nebulization shortness of breath or wheezing #180 mL rizatriptan 10 mg tablet See Rx Instructions .Route 06/02/25 07/18/25 Rx .COMPLEX #10 tabs albuterol sulfate 90 mcg/actuation See Rx Instructions .Route 11/29/24 12/17/24 Rx aerosol inhaler .COMPLEX #6.7 grams nabumetone 750 mg tablet 750 mg PO BID #60 tabs 11/29/24 12/17/24 Rx blood sugar diagnostic (OneTouch #100 ea 12/02/24 12/17/24 Rx Verio test strips) blood-glucose meter (OneTouch #1 ea 12/02/24 12/17/24 Rx Verio Reflect Meter) budesonide-formoterol HFA 160 2 puff inhalation Q12H #10.2 grams 12/02/24 12/17/24 Rx mcg-4.5 mcg/actuation aerosol inhaler (Symbicort) ondansetron 4 mg disintegrating See Rx Instructions .Route 12/14/24 12/17/24 Rx tablet .COMPLEX #10 tabs acetaminophen 650 mg 1,300 mg PO Q6-8H 12/15/24 12/17/24 History tablet,extended release (Tylenol Arthritis Pain) benzonatate 200 mg capsule 200 mg PO TID PRN cough #60 caps 12/15/24 12/17/24 Rx fexofenadine 180 mg tablet 180 mg PO DAILY 12/15/24 12/17/24 History (Brittaney Allergy) prednisone 10 mg tablet See Rx Instructions PO DAILY #34 12/15/24 12/17/24 Rx tabs dulaglutide 1.5 mg/0.5 mL See Rx Instructions .Route 12/22/24 Rx subcutaneous pen injector .COMPLEX #2 mL (Trulicity) ferrous sulfate 325 mg (65 mg 325 mg PO DAILY #30 tabs 12/28/24 Rx iron) tablet Sleep Procedure A full night polysomnogram using the [employer] multi-channel system recorded the standard physiologic parameters including EEG, EOG, submentalis EMG, anterior tibialis EMG, EKG, body position, nasal and oral airflow using nasal pressure sensor and thermistor.? Respiratory parameters of chest and abdominal movements were recorded with Respiratory Inductance Plethysmography belts. Oxygen saturation was recorded by pulse oximetry. Video monitoring was also performed. Sleep stages, periodic limb movements, and EEG arousals were scored in 30 second epochs according to the criteria of the AASM Scoring Manual. The Apnea-Hypopnea Index was calculated using CMS guidelines for definition of hypopnea with 4% O2 desaturations while scoring respiratory events. Sleep Architecture The total recording time was 426.8 minutes.? The total sleep time was 403.0 minutes. Sleep latency was 3.0 minutes. REM latency was 281.0 minutes. Sleep efficiency was 94.4%. The patient had 28 awakenings for an awakening index of 4.2. Wake after sleep onset time was 21.0 minutes. The patient spent 41.5 minutes, 10.3% of total sleep time in Stage N1. The patient spent 293.5 minutes, 72.8% in Stage N2. The patient spent 24.5 minutes, 6.1% in Stage N3. The patient spent 43.5 minutes, 10.8% in Stage REM sleep. Respiratory Analysis The patient had 73 hypopneas, 12 obstructive apneas, 1 mixed apnea and 1 central apnea for an overall Apnea Hypopnea Index of 13.0. The REM Apnea Hypopnea Index was 77.2. The NREM Apnea Hypopnea Index was 5.3. The patient had a Central Apnea Hypopnea Index of 0.1. There was no evidence of Kodak-Beth Respirations. Arousals There were 251 total arousals for an arousal index of 37.4. There were 23 spontaneous arousals for an index of 3.4. There were 44 arousals due to respiratory events for an index of 6.6. There were 134 arousals due to periodic limb movements for an index of 20.0.? There were 23 arousals due to isolated limb movements for an index of 3.4. Periodic Limb Movements The patient had 40 isolated limb movements with an index of 6.0. The patient had 314 periodic limb movements with an index of 46.7, which is elevated (normal < 15). Patient had a total of 354 limb movements with a total limb movement index of 52.7. Oximetry Data The patient had an average oxygen saturation of 93.4% in sleep with a minimum oxygen saturation of 77.0% and a maximum oxygen saturation of 99.0%. The patient had 80 oxygen desaturations that were 4% or greater resulting in an Oxygen Desaturation Index of 11.9.? The patient spent 9.3 minutes, 2.2% of total sleep time with an oxygen saturation below 88%. Snoring Profile Moderate snoring was present throughout the study. Cardiac Profile The EKG showed normal sinus rhythm.?No arrhythmias or premature beats were seen.The patient had an average pulse rate of 68.4 bpm with a minimum pulse of rate of 52.0 bpm and a maximum pulse rate of 95.0 bpm.? EEG Profile No signs of seizure activity seen. Assessment and Plan Assessment and Plan (1) CORTEZ (obstructive sleep apnea): Code(s): G47.33 - Obstructive sleep apnea (adult) (pediatric) Status: Chronic Assessment and Plan: The patient had an overall AHI of 13.0 with desaturation down to 77%. This is consistent with mild sleep apnea. Due to the patient's diabetes, she qualifies for treatment. I recommend that the patient be prescribed AutoPAP 5-15 cm H2O, CPAP mask/filters/tubing and heated humidity. A mandibular advancement device is also an acceptable treatment option. This should be used with all episodes of sleep.? Compliance should be reviewed within 31-90 days of starting therapy for usage greater than 4 hours per night greater than 70% of the nights. The patient should be asked about symptoms such as?excessive daytime sleepiness, quality of sleep, decreased nocturia, increased?mental functioning such as memory, mood, and concentration. (2) PLMD (periodic limb movement disorder): Code(s): G47.61 - Periodic limb movement disorder Status: Acute Assessment and Plan: The patient had a significant number of limb movements during the study with the majority being periodic in nature. Approximately 40% of the periodic limb movements caused arousals in the patient's sleep. The patient's sleep somewhat suggests Restless Leg Syndrome. I recommend that the patient have a serum ferritin drawn for evaluation of iron deficiency anemia. If the patient has a serum ferritin less than 75 ng/mL, I recommend starting a daily iron supplement and a Vitamin C supplement for better absorption. If the serum ferritin is greater than 75 ng/mL, I recommend starting a dopamine agonist and titrating the dose until symptoms resolve. There are nonpharmacological methods to treat limb movements including daily exercise, stretching calf muscles before bed, avoiding excessive amounts of caffeine and alcohol, vitamin B supplementation, magnesium lotion massaged into legs before bed, and use of a weighted blanket. Data The data obtained during this sleep study is adequate for interpretation. Certification This sleep study has been reviewed by a board certified sleep medicine physician.
[2024-12-29 13:13] VITALS: BMI 35.9
== END 2024-12-03 06:25 | disposition home or self-care (01) ==
LOC: ANHCSM 07:51
PROVIDERS: Visit Provider Physician Assistant
DX: G47.33 Obstructive sleep apnea (adult) (pediatric) (principal); G47.61 Periodic limb movement disorder; I10 Essential (primary) hypertension; F39 Unspecified mood [affective] disorder
CPT/HCPCS: 95810

== ENCOUNTER 2025-02-05 14:50 | Emergency (ER) | payer BC, SELFPAY ==
[2025-02-05] VITALS (20 sets, daily range): BP systolic 150–196; BP diastolic 72–122; PULSE 90; RESP 20; TEMP 37.2; O2SAT 90–100
--- OUTSIDE RECORDS SUMMARY | 2025-02-05 14:52 | XMS_ITS | Clinical Summary ---
Author Organization [facility] Address [address] [place] [id number] Care Team Providers Care Irrigation Supervisor Name Role Phone Unknown, Notinfile Primary Care [...] on file Legal Sex Female 9:20 AM MUSEUM GUIDE Gender Identity Not on file Sexual Orientation Not on file Last Filed Vital Signs Vital Sign Reading Time Taken Comments Blood Pressure 148/86 06/12/2024 6:18 PM MUSEUM GUIDE Pulse 89 06/12/2024 6:18 PM MUSEUM GUIDE Temperature 37 C (98.6 F) 06/12/2024 6:18 PM MUSEUM GUIDE Respiratory Rate 20 06/12/2024 6:18 PM MUSEUM GUIDE Oxygen Saturation 98% 06/12/2024 6:18 PM MUSEUM GUIDE Inhaled Oxygen Concentration - - Weight 93.4 kg (206 lb) 06/12/2024 6:18 PM MUSEUM GUIDE Height - - Body Mass Index - [...] 2024 05/14/2022, 02/12/2022, 12/17/2021 Influenza Vaccine (#1) 2025 03/23/2024 Pneumococcal vaccine <65 Aged Out No longer eligible based on patient's age to complete this topic Insurance [facility] [employer] CHOICE ANTHEM ACCESS CHOICE Care Teams Irrigation Supervisor Relationship Specialty Start Date End Date Unknown, Notinfile PCP - General 06/12/24
--- OUTSIDE RECORDS SUMMARY | 2025-02-05 19:20 | XMS_ITS | Clinical Summary ---
Author Organization [facility] Address [address] [place] [id number] Care Team Providers Care Airline Ticket Agent Name Role Phone Unknown, Notinfile Primary Care [...] on file Legal Sex Female 9:20 AM FINISHED CLOTH CHECKER Gender Identity Not on file Sexual Orientation Not on file Last Filed Vital Signs Vital Sign Reading Time Taken Comments Blood Pressure 148/86 06/12/2024 6:18 PM FINISHED CLOTH CHECKER Pulse 89 06/12/2024 6:18 PM FINISHED CLOTH CHECKER Temperature 37 C (98.6 F) 06/12/2024 6:18 PM FINISHED CLOTH CHECKER Respiratory Rate 20 06/12/2024 6:18 PM FINISHED CLOTH CHECKER Oxygen Saturation 98% 06/12/2024 6:18 PM FINISHED CLOTH CHECKER Inhaled Oxygen Concentration - - Weight 93.4 kg (206 lb) 06/12/2024 6:18 PM FINISHED CLOTH CHECKER Height - - Body Mass Index - [...] patient's age to complete this topic Insurance [facility] [employer] CHOICE ANTHEM ACCESS CHOICE Care Teams Airline Ticket Agent Relationship Specialty Start Date End Date Unknown, Notinfile PCP - General 06/12/24
--- NOTE | 2025-02-05 19:40 | ED.BACK ---
HPI - Back Pain/Injury General Chief Complaint: Back Pain/Injury Stated Complaint: lower back pain Time Seen by Provider: 02/05/25 19:12 Source: patient Mode of arrival: ambulatory Limitations: no limitations History of Present Illness HPI Narrative: Patient presents with report of low back pain. History of chronic low back pain for which she sees pain management and is scheduled for a nerve ablation procedure in March. Has had imaging before including MRI. Acute worsening of pain over the past 3-4 days. No trauma/injury. Denies wearing tight belt. Distribution is low back but also into left buttock and radiating down posterior-lateral aspect of left leg, terminating at the knee. Describes it as a pressure. History of diabetes complicated by neuropathy for which she is on gabapentin. 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 No personal history of malignancy though father had cancer. Can not take additional NSAIDs per program review director; already on nabumetone antiinflammatory. Has noticed her BP is elevated over the past few days due to pain. Has been using ice/heat and taking Tylenol arthritis TID. Denies dysuria or hematuria. Chronic urinary frequency, attributed to diabetes mellitus. Occasional low mild abdominal/suprapubic pain, not currently. Denies IVDU. Had been on short course of steroids prescribed by plastic maker, back in but otherwise not chronically. Denies bowel/bladder dysfunction. No saddle anesthesia. Related Data Home Medications ?Medication ?Instructions ?Recorded ?Confirmed ?Last Taken ?Type cyclobenzaprine 10 mg tablet 10 mg PO TID PRN muscle spasm 10/31/23 12/17/24 Unknown History acetaminophen 650 mg 1,300 mg PO Q6-8H 12/15/24 12/17/24 Unknown History tablet,extended release (Tylenol Arthritis Pain) fexofenadine 180 mg tablet 180 mg PO DAILY 12/15/24 12/17/24 Unknown History (Brittaney Allergy) Allergies Allergy/AdvReac Type Severity Reaction Status Date / Time celecoxib (From Celebrex) Allergy Mild Unknown Verified 02/05/25 15:01 diphenhydramine (From Allergy Mild Unknown Verified 02/05/25 15:01 Benadryl) meloxicam (From Mobic) Allergy Mild Hives Verified 02/05/25 15:01 moxifloxacin (From Avelox) Allergy Mild Unknown Verified 02/05/25 15:01 sulfur dioxide Allergy Mild Unknown Verified 02/05/25 15:01 Penicillins Allergy Hives Verified 02/05/25 15:01 PMFSH Past Medical History Medical History Vitamin B12 deficiency Migraines Asthma GERD (gastroesophageal reflux disease) Depression Osteoarthritis Fibromyalgia Diabetic neuropathy CORTEZ (obstructive sleep apnea) HLD (hyperlipidemia) HTN (hypertension) Diabetes Surgical History Surgical History Hx of foot surgery History of endometrial ablation History of tubal ligation Family History Family History Father Asthma Carcinoma of colon Hypertension Mother Hypertension Cerebrovascular accident Social History Social History Smoking packs per day: 0.5 Smoking cigarettes per day: 10.0 Years smoked: 25 Smoking pack-years: 12.50 Smoking status: Current every day smoker Alcohol intake: never Substance use: never Substance use type: does not use Do You Feel Safe in your Home?: Yes Lack of Transportation: No Lack of Food: Never True Current Housing: I Have Housing Concerned About Future Housing: No Difficulty Paying Gas/Electric Bills: YES Difficulty Paying for Meds: YES Currently Unemployed: No Education: High School Diploma/GED Difficulty w/ Childcare or Family Care: No Living arrangements: with family Occupation/Education: occupation Additional occupation/education comments: home health aide caregiver Gender identity (if verbalized by the patient): Female Sexual Orientation (if Verbalized by the Patient): Straight or Heterosexual Spiritual care concerns: No Exam Narrative: GENERAL: Well-appearing, well-nourished, and in no acute distress. Seated on side of stretcher HEAD: Normocephalic, atraumatic. EYES: Non injected, non icteric ENT: Nares clear, no rhinorrhea or epistaxis. Gross auditory acuity intact. NECK: Supple. No meningismus. CHEST: Speaking in full sentences. No respiratory distress. HEART: Regular rate and rhythm. ABDOMEN: Soft, nondistended. No TTP. No rigidity or guarding. Not peritoneal. EXTREMITIES: Normal range of motion. No lower extremity edema. No calf tenderness to palpation. BACK: In slight flexion at the time of exam. No Midline TTP of lumbar spine, no bony stepoffs/deformity. BUTTOCKS: Mild TTP of left gluteal muscles. SKIN: Warm, dry, no rash. NEURO: No focal deficits. Alert and oriented. Answering questions. Following commands. Normal speech without aphasia or dysarthria. 5/5 strength b/l ankle dorsiflexion/plantarflexion, knee flexion/extension; hip flexion/abduction/adduction. Sensation intact and symmetric in bilateral lower extremities. PSYCH: Normal mood and affect. Course Vital Signs Vital signs: Vital Signs Temperature 99.0 F 02/05/25 15:01 Pulse Rate 90 02/05/25 15:01 Respiratory Rate 20 02/05/25 15:01 Blood Pressure 170/87 H 02/05/25 15:01 Pulse Oximetry 90 02/05/25 15:01 Oxygen Delivery Room Air 02/05/25 15:01 Temperature 99.0 F 02/05/25 15:01 Pulse Rate 90 02/05/25 15:01 Respiratory Rate 20 02/05/25 15:01 Blood Pressure 185/97 H 02/05/25 21:21 Pulse Oximetry 100 02/05/25 21:21 Oxygen Delivery Room Air 02/05/25 15:01 MDM - Back Pain/Injury MDM Narrative Medical decision making narrative: Patient presents with acute exacerbation of chronic low back pain. Sees pain management and currently scheduled for nerve ablation procedure in March. In the emergency department she is afebrile vital signs notable for hypertension. Back has no deformities, or signs of trauma. Curvature is within normal limits. No tenderness is noted on palpation of the spinous processes which are midline. Lumbar paraspinal muscles are not tender and are without spasm. Patient demonstrates movement of the lumbar spine. Sensation to the lower extremities is normal bilaterally. Dorsi/plantar flexion is normal bilaterally. They do not have any other red flags for fracture, malignancy, infection (e.g. spinal epidural abscess), or aortic/vascular: Age, no trauma, not on chronic steroids, no cancer, no fever, IV drug use. Patient states she occasionally experiences some intermittent low abdominal pain but not currently. Given this, will defer further imaging at this time. Has chronic urinary frequency, UA without evidence of infection although UTI considered given this, and the intermittent suprapubic abd pain. Distribution patient describes intially sounds like classic sciatica but also contains a lateral component as well with distribution that also corresponds with lateral femoral cutaneous nerve. She is overweight and has diabetes so increased risk of this. We discussed these two as likely diagnoses. Patient verifies understanding. Can not take further NSAIDs given her medication list/rheumatology recommendations. Already taking APAP TID, advised she could increase to maximal dosing. While in the ED, given opiate medication. Pain improving but still present on reassessment. Discussed goal of multimodal pain therapy at home which will include opiates for breakthrough pain and muscle relaxer QHS. Given a PO dose of Valium at the time of discharge as patient confirms she [place], pharmacies currently closed. Advised keeping upcoming appointments, follow up, and strict ED return precautions. Patient amenable with the plan. [facility] program reviewed, patient already on gabapentin which she had stated due to her diabetic neuropathy. Also provided Rx for lidocaine patches. Differential Diagnosis Differential diagnosis: Likely lumbar radiculopathy, sciatica, strain of lumbar region and other (UTI) Lab Data Attestation: I reviewed the patient's lab results. Labs: Lab Results 02/05/25 Range/Units 20:14 Urine Color Yellow (Yellow) Urine Appearance Cloudy H (Clear) Urine pH 6.5 (5.0-9.0) Ur Specific [place] 1.005 (1.001-1.035) Urine Protein Negative (Negative) mg/dL Urine Glucose (UA) Negative (Negative) mg/dL Urine Ketones Negative (Negative) mg/dL Ur Blood (Man) Negative (Negative) Urine Nitrate Negative (Negative) Urine Bilirubin Negative (Negative) Urine Urobilinogen 0.2 (<2.0) mg/dL Add Ur Microanalysis Reviewed Leukocyte Esterase Rfl Trace H (Negative) MORIAH/UL Urine RBC 6-10 H (0-2) /hpf Urine WBC 0-5 (0-3) /hpf Ur Squamous Epith Cells None seen (Few) /hpf Urine Bacteria None seen /hpf Urine Casts 0-2 Discharge Plan Discharge Clinical Impression: Acute exacerbation of chronic low back pain, Microscopic hematuria Patient Disposition: Home Condition: Stable Instructions: Antibiotic Form, Sciatica (ED), Acute Low Back Pain (ED), Meralgia Paresthetica (ED), Lumbar Radiculopathy (ED), Chronic Back Pain (DC), Lower Back Exercises (ED) Additional Instructions: As we discussed, continue taking your current pain medication regimen. The goal is to balance some rest with making your pain more tolerable to allow you to perform stretching/strengthening exercises to keep from becoming more sore/achy. Of note, it is safe to take up to a maximum of 4000 mg per day of acetaminophen/Tylenol. Topical patch been prescribed as well. For breakthrough pain, you are being prescribed an opiate medication for AM use and a strong muscle relaxer for nighttime. Take as directed. Follow-up with your primary care physician as well as metal painter. Proceed with your upcoming procedure. Return to the emergency department with any new or worsening symptoms. Return to the ER if you have increased pain in your back, you develop lower extremity weakness/numbness/paralysis, you have numbness or tingling in your private parts, or you are unable to control your ability to urinate/stool. Patient Language: Omani Prescriptions: New oxycodone 5 mg tablet 5 mg PO QAM PRN (Reason: pain) Qty: 10 0RF diazepam [Valium] 2 mg tablet 2 mg PO HS PRN (Reason: muscle spasm) Qty: 7 0RF lidocaine 4 % adhesive patch,medicated 1 patch topical DAILY PRN (Reason: pain) Qty: 10 0RF No Action insulin lispro [Humalog KwikPen Insulin] 100 unit/mL insulin pen 8 unit subcut TID Qty: 15 0RF albuterol sulfate 2.5 mg /3 mL (0.083 %) solution for nebulization 2.5 mg inhalation Q4-6H PRN (Reason: shortness of breath or wheezing) Qty: 180 3RF lisinopril 20 mg tablet 20 mg PO BID Qty: 180 2RF fexofenadine [Brittaney Allergy] 180 mg tablet 180 mg PO DAILY acetaminophen [Tylenol Arthritis Pain] 650 mg tablet extended release 1,300 mg PO Q6-8H benzonatate 200 mg capsule 200 mg PO TID PRN (Reason: cough) Qty: 60 2RF prednisone 10 mg tablet See Rx Instructions PO DAILY Qty: 34 0RF Rx Instructions: 4 tabs daily x 4 days; then 3 tabs daily x 3 days, then 2 tabs daily x 3 days, then 1 tab daily x 3 days. cyclobenzaprine 10 mg tablet 10 mg PO TID PRN (Reason: muscle spasm) ezetimibe 10 mg tablet See Rx Instructions .ROUTE .COMPLEX Qty: 90 1RF Dose Instruction: TAKE 1 TABLET BY MOUTH DAILY Rx Instructions: TAKE 1 TABLET BY MOUTH DAILY (DME) pen needle, diabetic [BD Ultra-Fine Short Pen Needle] 31 gauge x 5/16 needle See Rx Instructions .Route Qty: 400 3RF Rx Instructions: injection qac and qhs omeprazole 40 mg capsule,delayed release(DR/EC) See Rx Instructions .ROUTE .COMPLEX Qty: 60 6RF Dose Instruction: TAKE 1 CAPSULE BY MOUTH TWICE DAILY Rx Instructions: TAKE 1 CAPSULE BY MOUTH TWICE DAILY gabapentin 400 mg capsule See Rx Instructions .ROUTE .COMPLEX Qty: 270 2RF Dose Instruction: TAKE 1 CAPSULE BY MOUTH THREE TIMES DAILY Rx Instructions: TAKE 1 CAPSULE BY MOUTH THREE TIMES DAILY metoclopramide HCl [Reglan] 10 mg tablet 10 mg PO .AM and HS Qty: 60 6RF Zenpep 60,000-189,600- 252,600 unit capsule,delayed release(DR/EC) See Rx Instructions .ROUTE .COMPLEX Qty: 300 12RF Dose Instruction: TAKE 1 CAPSULE BY MOUTH WITH MEALS AND SNACKS Rx Instructions: TAKE 1 CAPSULE BY MOUTH WITH MEALS AND SNACKS montelukast 10 mg tablet See Rx Instructions .ROUTE .COMPLEX Qty: 90 0RF Dose Instruction: TAKE 1 TABLET BY MOUTH DAILY Rx Instructions: TAKE 1 TABLET BY MOUTH DAILY insulin glargine U-300 conc [Toujeo Max U-300 SoloStar] 300 unit/mL (3 mL) insulin pen See Rx Instructions .ROUTE .COMPLEX Qty: 12 4RF Dose Instruction: INJECT 50 UNITS UNDER THE SKIN DAILY Rx Instructions: INJECT 50 UNITS UNDER THE SKIN DAILY rizatriptan 10 mg tablet See Rx Instructions .ROUTE .COMPLEX Qty: 10 5RF Rx Instructions: one po prn migraine, may repeat once after 2 hrs; albuterol sulfate 90 mcg/actuation HFA aerosol inhaler See Rx Instructions .ROUTE .COMPLEX Qty: 6.7 2RF Dose Instruction: INHALE 1 PUFF BY MOUTH FOUR TIMES DAILY Rx Instructions: INHALE 1 PUFF BY MOUTH FOUR TIMES DAILY nabumetone 750 mg tablet 750 mg PO BID Qty: 60 1RF budesonide-formoterol [Symbicort] 160-4.5 mcg/actuation HFA aerosol inhaler 2 puff inhalation Q12H Qty: 10.2 3RF (DME) blood-glucose meter [OneTouch Verio Reflect Meter] [facility] [place] See Rx Instructions .Route Qty: 1 0RF Rx Instructions: As directed (DME) OneTouch Verio test strips Strip See Rx Instructions .Route Qty: 100 2RF Rx Instructions: As directed ondansetron 4 mg tablet,disintegrating See Rx Instructions .ROUTE .COMPLEX Qty: 10 2RF Dose Instruction: DISSOLVE 1 TABLET ON THE TONGUE EVERY 8 HOURS NEEDED FOR NAUSEA OR VOMITING Rx Instructions: DISSOLVE 1 TABLET ON THE TONGUE EVERY 8 HOURS NEEDED FOR NAUSEA OR VOMITING Trulicity 1.5 mg/0.5 mL pen injector See Rx Instructions .ROUTE .COMPLEX Qty: 2 0RF Dose Instruction: ADMINISTER 1.5 MG UNDER THE SKIN WEEKLY Rx Instructions: ADMINISTER 1.5 MG UNDER THE SKIN WEEKLY ferrous sulfate 325 mg (65 mg iron) tablet 325 mg PO DAILY Qty: 30 2RF duloxetine 60 mg capsule,delayed release(DR/EC) 60 mg PO HS Qty: 90 1RF Follow-up/Referrals: Lalit Hammonds MD [Primary Care Provider, Family Practice] Stand Alone Forms: Work/School Release IP Time of Disposition: 21:09
[2025-02-05] MEDS: LIDOCAINE 5% PATCH 1 PATCH TRANSDERM (20:09)
[2025-02-05] MEDS: HYDROcodone/acetaminophen (*CRX) 5-325 MG TABLET 1 TAB PO (20:09)
[2025-02-05 20:32] LABS: Add Urine Microscopic? YES; Appearance Urine Cloudy (Clear); Glucose Urine UA Negative (Negative); Leukocyte Esterase Ur Trace LEU/UL (Negative); Need Manual Microscopic Reviewed; Nitrate Urine Negative (Negative); Non Pathogenic Casts 0-2; Specific Grav Ur 1.005 (1.001-1.035)
[2025-02-05] MEDS: diazePAM (*CRX) 5 MG TABLET PO (21:21)
== END 2025-02-05 21:30 | disposition home or self-care (01) ==
PROVIDERS: Emergency Provider Student in an Organized Health Care Education/Training Program; PCP Family Medicine
DX: M54.50 Low back pain, unspecified (principal); G89.29 Other chronic pain; R31.0 Gross hematuria; I10 Essential (primary) hypertension; J45.909 Unspecified asthma, uncomplicated; E55.9 Vitamin D deficiency, unspecified; E78.5 Hyperlipidemia, unspecified; E11.40 Type 2 diabetes mellitus with diabetic neuropathy, unspecified; G47.33 Obstructive sleep apnea (adult) (pediatric); M79.7 Fibromyalgia; M19.90 Unspecified osteoarthritis, unspecified site; K21.9 Gastro-esophageal reflux disease without esophagitis; F32.A Depression, unspecified; F17.210 Nicotine dependence, cigarettes, uncomplicated; Z79.4 Long term (current) use of insulin; Z79.899 Other long term (current) drug therapy; Z79.85 Long-term (current) use of injectable non-insulin antidiabetic drugs
CPT/HCPCS: 81001; 99283; A9270

== ENCOUNTER 2025-04-06 13:27 | Emergency (ER) | payer BC, SELFPAY ==
--- NOTE | ~2025-04-06 | CT_ITS ---
EXAMINATION: CT lumbar spine wo con DATE: 04/06/2025 15:04 INDICATION: Low back pain TECHNIQUE: Computed tomography (CT) of the lumbar spine was performed without intravenous contrast. The dose-length product was 1098.58 mGy-cm. COMPARISON: CT dated 06/21/2024 FINDINGS: Vertebral body heights are maintained. There is disc narrowing at L1-2 and L2-3. There is levocurvature of the lumbar spine. No fracture, subluxation or dislocation. No paraspinal soft tissue abnormality. There is atherosclerosis of the aorta. There is mild multilevel facet hypertrophy. IMPRESSION: 1. No acute abnormality of the lumbar spine. Reviewed, dictated and finalized at location O. PRESIDENT PAYMENT
[2025-04-06 13:28] VITALS: BP 126/74; PULSE 78; RESP 14; TEMP 36.2; O2SAT 99
--- NOTE | 2025-04-06 14:39 | ED.BACK ---
HPI - Back Pain/Injury General Chief Complaint: Back Pain/Injury <Allison Ortiz PA-C - Last Filed: 04/07/25 10:19> Stated Complaint: back pain <Allison Ortiz PA-C - Last Filed: 04/07/25 10:19> Time Seen by Provider: 04/06/25 14:39 <Allison Ortiz PA-C - Last Filed: 04/07/25 10:19> Focused HPI: This is a 54 year old female that presents to the ER for lower back pain. Reports she had a nerve ablation for this a couple of weeks ago with Dr. French with pain management. Has had continued pain. The pain is making her nauseous. She takes Tylenol, Gabapentin, Cyclobenzaprine with little relief. Denies saddle anesthesia, bowel/bladder incontinence. GENERAL: Uncomfortable, well-nourished, and in no acute distress. HEAD: Normocephalic, atraumatic. CHEST: Clear to auscultation. ?No respiratory distress. HEART: Regular rate and rhythm.? NEURO: ?Alert and oriented x3. Patient screened in triage and initial orders placed.? ?Additional care and disposition to be based upon?diagnostic testing and treatment. <Allison Ortiz PA-C - Last Filed: 04/07/25 10:19> History of Present Illness HPI Narrative: Agree with HPI. No red flag signs for cauda equina or epidural hematoma. She does note some intermittent numbness to her lower medial thigh but denies saddle anesthesia. <Corby Almeida DO - Last Filed: 04/06/25 22:36> Related Data Home Medications: Home Medications ?Medication ?Instructions ?Recorded ?Confirmed ?Last Taken ?Type cyclobenzaprine 10 mg tablet 10 mg PO TID PRN muscle spasm 10/31/23 03/01/25 Unknown History acetaminophen 650 mg 1,300 mg PO Q6-8H 12/15/24 03/01/25 Unknown History tablet,extended release (Tylenol Arthritis Pain) fexofenadine 180 mg tablet 180 mg PO DAILY 12/15/24 03/01/25 Unknown History (Brittaney Allergy) <RUIZ Shelton Last Filed: 04/07/25 10:19> Allergies/Adverse Reactions: Allergies Allergy/AdvReac Type Severity Reaction Status Date / Time celecoxib (From Celebrex) Allergy Mild Unknown Verified 03/01/25 13:40 diphenhydramine (From Allergy Mild Unknown Verified 03/01/25 13:40 Benadryl) meloxicam (From Mobic) Allergy Mild Hives Verified 03/01/25 13:40 moxifloxacin (From Avelox) Allergy Mild Unknown Verified 03/01/25 13:40 sulfur dioxide Allergy Mild Unknown Verified 03/01/25 13:40 Penicillins Allergy Hives Verified 03/01/25 13:40 <Allison Ortiz PA-C - Last Filed: 04/07/25 10:19> Review of Systems Review of Systems: Gen.: Denies fevers or chills Eyes: Denies eye pain or visual change ENT: Denies congestion Respiratory: Denies shortness of breath or cough CV: Denies chest pain or palpitations GI: Denies abdominal pain nausea, emesis or diarrhea denies burning, urgency, frequency or hematuria Musculoskeletal: As per HPI Neuro: As per HPI Skin: Denies rash Except as documented, all other systems reviewed and negative <Corby Almeida DO - Last Filed: 04/06/25 22:36> [facility] Past Medical History Medical History: Medical History Vitamin B12 deficiency Migraines Asthma GERD (gastroesophageal reflux disease) Depression Osteoarthritis Fibromyalgia Diabetic neuropathy CORTEZ (obstructive sleep apnea) HLD (hyperlipidemia) HTN (hypertension) Diabetes <RUIZ Shelton Last Filed: 04/07/25 10:19> Surgical History Surgical History: Surgical History Hx of foot surgery History of endometrial ablation History of tubal ligation <RUIZ Shelton Last Filed: 04/07/25 10:19> Family History Family History: Family History Father Asthma Carcinoma of colon Hypertension Mother Hypertension Cerebrovascular accident <RUIZ Shelton Last Filed: 04/07/25 10:19> Social History Social History: Social History Smoking packs per day: 0.5 Smoking cigarettes per day: 10.0 Years smoked: 25 Smoking pack-years: 12.50 Alcohol intake: never Substance use: never Substance use type: does not use Do You Feel Safe in your Home?: Yes Lack of Transportation: No Lack of Food: Never True Current Housing: I Have Housing Concerned About Future Housing: No Difficulty Paying Gas/Electric Bills: YES Difficulty Paying for Meds: YES Currently Unemployed: No Education: High School Diploma/GED Difficulty w/ Childcare or Family Care: No Living arrangements: with family Occupation/Education: occupation 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 CARDIOVASCULAR: Regular rate and rhythm without murmurs rubs or gallops. ABDOMINAL: Soft, nontender, nondistended, no rebound or guarding MUSCULOSKELETAl: Moves all extremities. No clubbing, cyanosis or edema. Tenderness palpation to the low midline lumbar spine without step-offs or deformities. NEURO: Awake and alert. Following commands, speech normal, no focal deficits SKIN:: Warm, dry. No rashes lesions or abrasions PSYCHIATRIC: Normal affect/mood, <Corby Almeida DO - Last Filed: 04/06/25 22:36> Course Vital Signs Vital signs: Vital Signs Temperature 97.2 F L 04/06/25 13:28 Pulse Rate 78 04/06/25 13:28 Respiratory Rate 14 04/06/25 13:28 Blood Pressure 126/74 04/06/25 13:28 Pulse Oximetry 99 04/06/25 13:28 Temperature 97.2 F L 04/06/25 13:28 Pulse Rate 74 04/06/25 16:29 Respiratory Rate 18 04/06/25 16:29 Blood Pressure 151/67 H 04/06/25 16:29 Pulse Oximetry 98 04/06/25 16:29 Oxygen Delivery Room Air 04/06/25 15:21 <Allison Ortiz PA-C - Last Filed: 04/07/25 10:19> Vital Signs Temperature 97.2 F L 04/06/25 13:28 Pulse Rate 78 04/06/25 13:28 Respiratory Rate 14 04/06/25 13:28 Blood Pressure 126/74 04/06/25 13:28 Pulse Oximetry 99 04/06/25 13:28 Temperature 97.2 F L 04/06/25 13:28 Pulse Rate 74 04/06/25 16:29 Respiratory Rate 18 04/06/25 16:29 Blood Pressure 151/67 H 04/06/25 16:29 Pulse Oximetry 98 04/06/25 16:29 Oxygen Delivery Room Air 04/06/25 15:21 <Corby Almeida DO - Last Filed: 04/06/25 22:36> MDM - Back Pain/Injury MDM Narrative Medical decision making narrative: 54-year-old female Presenting for low back pain. On initial evaluation patient was in no acute distress afebrile, hemodynamic stable. Differentials include but are not limited to: MSK pain, disc herniation, unlikely cauda equina or epidural abscess Notable exam findings: Tenderness to the midline lower lumbar spine. Notable imaging findings: CT lumbar spine showed no acute process. Patient was given Lidoderm, morphine, oxycodone and did have significant improvement of her pain. She has a follow-up appointment with her pain doctor early next month, I advised her to call to see if they could move her appointment up given her increasing pain. A very low suspicion for cauda equina or epidural abscess at this time as she has no red flag signs. She will be given a short course of [place]. Patient was agreeable to this plan. Given strict return precautions. <DO Geovanni Rodriguez Last Filed: 04/06/25 22:36> Medical Records Attestation: I reviewed the patient's medical records. <Corby Almeida DO - Last Filed: 04/06/25 22:36> Lab Data Attestation: I reviewed the patient's lab results. <Corby Almeida DO - Last Filed: 04/06/25 22:36> Labs: Lab Results 04/06/25 Range/Units 15:27 POC Urine HCG, Qual Negative (Negative) <RUIZ Shelton Last Filed: 04/07/25 10:19> Lab Results 04/06/25 Range/Units 15:27 POC Urine HCG, Qual Negative (Negative) <Corby Almeida DO - Last Filed: 04/06/25 22:36> Imaging Data Attestation: I personally reviewed and interpreted this imaging study as follows: <Corby Almeida DO - Last Filed: 04/06/25 22:36> Radiologist's impression: Impressions Lumbar Spine CT 04/06/25 15:09 IMPRESSION: 1. No acute abnormality of the lumbar spine. <Corby Almeida DO - Last Filed: 04/06/25 22:36> Critical Care Time Critical Care Time Critical Care Time: No <Allison Ortiz PA-C - Last Filed: 04/07/25 10:19> Discharge Plan Discharge Clinical Impression: Sciatica Qualifiers: Laterality: left Qualified Code(s): M54.32 - Sciatica, left side <Allison Ortiz PA-C - Last Filed: 04/07/25 10:19> Patient Disposition: Home <RUIZ Shelton Last Filed: 04/07/25 10:19> Condition: Stable <RUIZ Shelton Last Filed: 04/07/25 10:19> Instructions: Antibiotic Form, Sciatica (ED), Acute Low Back Pain (ED) <Allison Ortiz PA-C - Last Filed: 04/07/25 10:19> Additional Instructions: CT scan was reassuring. Take [place] as prescribed. Call your pain management team tomorrow for possible earlier appointment. Return to the ED for any new or worsening symptoms. <RUIZ Shelton Last Filed: 04/07/25 10:19> Patient Language: Greek <RUIZ Shelton Last Filed: 04/07/25 10:19> Prescriptions: New hydrocodone-acetaminophen 5-325 mg tablet 1 tablet PO Q8H PRN (Reason: pain) Qty: 12 0RF No Action albuterol sulfate 2.5 mg /3 mL (0.083 %) solution for nebulization 2.5 mg inhalation Q4-6H PRN (Reason: shortness of breath or wheezing) Qty: 180 3RF fexofenadine [Brittaney Allergy] 180 mg tablet 180 mg PO DAILY acetaminophen [Tylenol Arthritis Pain] 650 mg tablet extended release 1,300 mg PO Q6-8H benzonatate 200 mg capsule 200 mg PO TID PRN (Reason: cough) Qty: 60 2RF eszopiclone [Lunesta] 2 mg tablet 2 mg PO QHS Qty: 30 3RF Rx Instructions: Take with you to sleep lab on the night of sleep study. cyclobenzaprine 10 mg tablet 10 mg PO TID PRN (Reason: muscle spasm) lidocaine 4 % adhesive patch,medicated 1 patch topical DAILY PRN (Reason: pain) Qty: 10 0RF omeprazole 40 mg capsule,delayed release(DR/EC) See Rx Instructions .ROUTE .COMPLEX Qty: 60 6RF Dose Instruction: TAKE 1 CAPSULE BY MOUTH TWICE DAILY Rx Instructions: TAKE 1 CAPSULE BY MOUTH TWICE DAILY metoclopramide HCl [Reglan] 10 mg tablet 10 mg PO .AM and HS Qty: 60 6RF Zenpep 60,000-189,600- 252,600 unit capsule,delayed release(DR/EC) See Rx Instructions .ROUTE .COMPLEX Qty: 300 12RF Dose Instruction: TAKE 1 CAPSULE BY MOUTH WITH MEALS AND SNACKS Rx Instructions: TAKE 1 CAPSULE BY MOUTH WITH MEALS AND SNACKS insulin glargine U-300 conc [Toujeo Max U-300 SoloStar] 300 unit/mL (3 mL) insulin pen See Rx Instructions .ROUTE .COMPLEX Qty: 12 4RF Dose Instruction: INJECT 50 UNITS UNDER THE SKIN DAILY Rx Instructions: INJECT 50 UNITS UNDER THE SKIN DAILY rizatriptan 10 mg tablet See Rx Instructions .ROUTE .COMPLEX Qty: 10 5RF Rx Instructions: one po prn migraine, may repeat once after 2 hrs; ondansetron 4 mg tablet,disintegrating See Rx Instructions .ROUTE .COMPLEX Qty: 10 2RF Dose Instruction: DISSOLVE 1 TABLET ON THE TONGUE EVERY 8 HOURS NEEDED FOR NAUSEA OR VOMITING Rx Instructions: DISSOLVE 1 TABLET ON THE TONGUE EVERY 8 HOURS NEEDED FOR NAUSEA OR VOMITING ferrous sulfate 325 mg (65 mg iron) tablet 325 mg PO DAILY Qty: 30 2RF Trulicity 1.5 mg/0.5 mL pen injector See Rx Instructions .ROUTE .COMPLEX Qty: 2 2RF Dose Instruction: ADMINISTER 1.5 MG UNDER THE SKIN WEEKLY Rx Instructions: ADMINISTER 1.5 MG UNDER THE SKIN WEEKLY albuterol sulfate 90 mcg/actuation HFA aerosol inhaler See Rx Instructions .ROUTE .COMPLEX Qty: 6.7 2RF Dose Instruction: INHALE 1 PUFF BY MOUTH FOUR TIMES DAILY Rx Instructions: INHALE 1 PUFF BY MOUTH FOUR TIMES DAILY duloxetine 60 mg capsule,delayed release(DR/EC) 60 mg PO HS Qty: 90 3RF ezetimibe 10 mg tablet See Rx Instructions .ROUTE .COMPLEX Qty: 90 3RF Dose Instruction: TAKE 1 TABLET BY MOUTH DAILY Rx Instructions: TAKE 1 TABLET BY MOUTH DAILY gabapentin 400 mg capsule See Rx Instructions .ROUTE .COMPLEX Qty: 270 3RF Dose Instruction: TAKE 1 CAPSULE BY MOUTH THREE TIMES DAILY Rx Instructions: TAKE 1 CAPSULE BY MOUTH THREE TIMES DAILY lisinopril 20 mg tablet 20 mg PO BID Qty: 180 3RF montelukast 10 mg tablet See Rx Instructions .ROUTE .COMPLEX Qty: 90 3RF Dose Instruction: TAKE 1 TABLET BY MOUTH DAILY Rx Instructions: TAKE 1 TABLET BY MOUTH DAILY nabumetone 750 mg tablet 750 mg PO BID Qty: 180 3RF (DME) pen needle, diabetic 31 gauge x 5/16 needle See Rx Instructions .Route Qty: 400 3RF Rx Instructions: injection qac and qhs insulin lispro [Humalog KwikPen Insulin] 100 unit/mL insulin pen See Rx Instructions .ROUTE .COMPLEX Qty: 15 4RF Dose Instruction: INJECT 8 UNITS UNDER THE SKIN THREE TIMES A DAY Rx Instructions: INJECT 8 UNITS UNDER THE SKIN THREE TIMES A DAY budesonide-formoterol [Symbicort] 160-4.5 mcg/actuation HFA aerosol inhaler 2 puff inhalation Q12H Qty: 30.6 3RF (DME) blood-glucose meter [True Metrix Glucose Meter] Misc See Rx Instructions .Route Qty: 1 0RF Rx Instructions: As directed (DME) True Metrix Glucose Test Strip Strip See Rx Instructions .Route Qty: 100 2RF Rx Instructions: As directed <Allison Ortiz PA-C - Last Filed: 04/07/25 10:19> Follow-up/Referrals: Lalit Hammonds MD [Primary Care Provider, [facility]] <Allison Ortiz PA-C - Last Filed: 04/07/25 10:19>
[2025-04-06 15:21] VITALS: BP 131/73; PULSE 72; RESP 18; O2SAT 97
[2025-04-06 15:29] LABS: BEDSIDEPREGUCG Negative (Negative)
[2025-04-06] MEDS: LIDOCAINE 5% PATCH 1 PATCH TRANSDERM (16:22)
[2025-04-06] MEDS: oxyCODONE HCL (*CRX) 5 MG TAB IR PO (16:23)
[2025-04-06] MEDS: MORPHINE SULFATE (*CRX) 4 MG/ML INJ IM (16:23)
[2025-04-06 16:29] VITALS: BP 151/67; PULSE 74; RESP 18; O2SAT 98
--- OUTSIDE RECORDS SUMMARY | 2025-04-07 12:37 | XMS_ITS | Clinical Summary ---
Author Organization [facility] Address [address] [place] [phone] Care Team Providers Care Hedis Registered Nurse Rn Name Role Phone Unknown, Notinfile Primary Care [...] on file Legal Sex Female 9:20 AM ASSISTANT SALES DIRECTOR Gender Identity Not on file Sexual Orientation Not on file Last Filed Vital Signs Vital Sign Reading Time Taken Comments Blood Pressure 148/86 06/12/2024 6:18 PM ASSISTANT SALES DIRECTOR Pulse 89 06/12/2024 6:18 PM ASSISTANT SALES DIRECTOR Temperature 37 C (98.6 F) 06/12/2024 6:18 PM ASSISTANT SALES DIRECTOR Respiratory Rate 20 06/12/2024 6:18 PM ASSISTANT SALES DIRECTOR Oxygen Saturation 98% 06/12/2024 6:18 PM ASSISTANT SALES DIRECTOR Inhaled Oxygen Concentration - - Weight 93.4 kg (206 lb) 06/12/2024 6:18 PM ASSISTANT SALES DIRECTOR Height - - Body Mass Index - - Plan of Treatment Health Maintenance Due Date Last Done Comments Breast Cancer Screening-Mammogram 1971 Cervical Cancer Screening 1971 Colon Cancer Screening-Colonoscopy 1971 Depression Screening 1971 Hepatitis C Screening 1971 DTaP/Tdap/Td Vaccine (1 - Tdap) 11/05/1982 Hepatitis B Screening 11/05/1989 Regular Well Visit/Exam 18-64 11/05/1989 Zoster Vaccine (1 of 2) 11/05/2021 Covid-19 Vaccine (4 - 2024-2 6 season) 2025 05/14/2022, 02/12/2022, 12/17/2021 Influenza Vaccine (#1) 2025 03/23/2024 Pneumococcal vaccine <65 Aged Out No longer eligible based on patient's age to complete this topic Insurance [facility] [employer] CHOICE ANTHEM ACCESS CHOICE Care Teams Hedis Registered Nurse Rn Relationship Specialty Start Date End Date Unknown, Notinfile PCP - General 06/12/24
--- OUTSIDE RECORDS SUMMARY | 2025-04-07 12:37 | XMS_ITS | Patient Health Record ---
Author Organization [facility] Address [address] [place] [address] Y RADHA FERNANDEZ [address] Care Team Providers Care Tile Conduit Layer Name Role Phone Roberto Ji Primary Care Provider Allergies Allergen (clinical drug ingredient) Drug/Non Drug [...] Date End Date Status Flexeril 10 MG Tablet 1 tablet Orally tw ice a day; Duration: as needed 05/30/2012 Active Aleve Active Cymbalta Active Lunesta Active Acetaminophen-Codeine #3 300-30 MG Tablet 1 tablet as needed Orally every 6 hrs 04/12/2012 Active Mobic Active Medrol (Uriel) 4 MG Tablet as directed Orally 2011 Active Tamiflu 75 MG Capsule 1 capsule Orally T wice a day; Duration: 5 day(s) 05/30/2012 Active Ultram 50 MG Tablet 1 tablet as needed O rally every 6 hrs; Duration: as needed 05/30/2012 Active Plan Of Treatment No Information Insurance Providers Payer Name Payer Address Payer Phone Subscriber Number Group Number Insured Name Patient Relationship to Insured Coverage Start Date Coverage End Date [facility] [address] [address] RADHA ROWE [id number] Mago Burgos Self - patient is the insured Medications Administered Medication Instructions Date of Administration Dosage Notes Celestone 6mg 05/24/2012 Norflex 04/12/2012 60 mg Torodal 60mg 04/12/2012 Torodal 60mg 05/30/2012 Medical (General) History Medical History History ICD Code Arthritis fibromyalgia sleep apnea Surgical History Surgery Date(Month/Year) tubal ligation bladder suspension cervical ablation cryo persidure
--- OUTSIDE RECORDS SUMMARY | 2025-04-07 15:07 | XMS_ITS | Clinical Summary ---
Author Organization [facility] Address [address] [place] [phone] Care Team Providers Care Outside B2B Sales Name Role Phone Unknown, Notinfile Primary Care [...] on file Legal Sex Female 9:20 AM PROP MAKING SUPERVISOR Gender Identity Not on file Sexual Orientation Not on file Last Filed Vital Signs Vital Sign Reading Time Taken Comments Blood Pressure 148/86 06/12/2024 6:18 PM PROP MAKING SUPERVISOR Pulse 89 06/12/2024 6:18 PM PROP MAKING SUPERVISOR Temperature 37 C (98.6 F) 06/12/2024 6:18 PM PROP MAKING SUPERVISOR Respiratory Rate 20 06/12/2024 6:18 PM PROP MAKING SUPERVISOR Oxygen Saturation 98% 06/12/2024 6:18 PM PROP MAKING SUPERVISOR Inhaled Oxygen Concentration - - Weight 93.4 kg (206 lb) 06/12/2024 6:18 PM PROP MAKING SUPERVISOR Height - - Body Mass Index [...] patient's age to complete this topic Insurance [facility] [email or web address] CHOICE ANTHEM ACCESS CHOICE Care Teams Outside B2B Sales Relationship Specialty Start Date End Date Unknown, Notinfile PCP - General 06/12/24
== END 2025-04-06 18:05 | disposition home or self-care (01) ==
PROVIDERS: Physician Assistant; Emergency Provider Student in an Organized Health Care Education/Training Program; PCP Family Medicine
DX: M54.42 Lumbago with sciatica, left side (principal); I10 Essential (primary) hypertension; J45.909 Unspecified asthma, uncomplicated; E11.40 Type 2 diabetes mellitus with diabetic neuropathy, unspecified; E53.8 Deficiency of other specified B group vitamins; E78.5 Hyperlipidemia, unspecified; K21.9 Gastro-esophageal reflux disease without esophagitis; M19.90 Unspecified osteoarthritis, unspecified site; M79.7 Fibromyalgia; G47.33 Obstructive sleep apnea (adult) (pediatric); F32.A Depression, unspecified; F17.210 Nicotine dependence, cigarettes, uncomplicated; Z79.4 Long term (current) use of insulin; Z79.899 Other long term (current) drug therapy; Z79.85 Long-term (current) use of injectable non-insulin antidiabetic drugs
CPT/HCPCS: 72131; 81025; 96372; 99284; A9270; J2270

== ENCOUNTER 2025-05-24 14:48 | Outpatient (CLI) | payer BC, SELFPAY ==
--- OUTSIDE RECORDS SUMMARY | 2025-05-24 14:54 | XMS_ITS | Clinical Summary ---
Author Organization [facility] Address [address] [place] [phone] Care Team Providers Care Pilot Boat Operator Name Role Phone Unknown, Notinfile Primary [...] on file Legal Sex Female 9:20 AM CORE SHAPER SIDES Gender Identity Not on file Sexual Orientation Not on file Last Filed Vital Signs Vital Sign Reading Time Taken Comments Blood Pressure 148/86 06/12/2024 6:18 PM CORE SHAPER SIDES Pulse 89 06/12/2024 6:18 PM CORE SHAPER SIDES Temperature 37 C (98.6 F) 06/12/2024 6:18 PM CORE SHAPER SIDES Respiratory Rate 20 06/12/2024 6:18 PM CORE SHAPER SIDES Oxygen Saturation 98% 06/12/2024 6:18 PM CORE SHAPER SIDES Inhaled Oxygen Concentration - - Weight 93.4 kg (206 lb) 06/12/2024 6:18 PM CORE SHAPER SIDES Height - - Body Mass Index - [...] patient's age to complete this topic Insurance [facility] [employer] CHOICE ANTHEM ACCESS CHOICE Care Teams Pilot Boat Operator Relationship Specialty Start Date End Date Unknown, Notinfile PCP - General 06/12/24
[2025-05-24 16:04] LABS: Ferritin 51.80 ng/mL (11.1-264)
== END 2025-05-24 14:49 | disposition home or self-care (01) ==
PROVIDERS: PCP Family Medicine; Visit Provider Physician Assistant
DX: D64.9 Anemia, unspecified (principal)
CPT/HCPCS: 36415; 82728